=== PATIENT | male | born 1940 | race Caucasian/White ===

== ENCOUNTER 2018-05-28 12:46 | Outpatient (CLI) | payer MEDICARE, BC, SELFPAY ==
[2018-05-28 14:40] LABS: Uric Acid 5.2 mg/dL (3.5-7.2)
== END 2018-05-28 13:06 ==
PROVIDERS: PCP Family Medicine; Visit Provider Family Medicine
DX: M10.9 Gout, unspecified (principal)
CPT/HCPCS: 36415; 84550

== ENCOUNTER 2018-05-31 13:14 | Emergency (ER) | payer MEDICARE, BC, SELFPAY ==
[2018-05-31 13:22] VITALS: BP 154/74; PULSE 73; RESP 20; TEMP 36.7; O2SAT 97
--- NOTE | 2018-05-31 14:34 | DI.RAD_ITS ---
SYMPTOM/DIAGNOSIS: PAIN, SWELLING LEFT WRIST; Three views. No acute fracture or dislocation is seen. 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 Mild degenerative changes are seen in the wrist. There is soft tissue swelling of the wrist seen anteriorly. Vascular calcifications are present in the soft tissues. IMPRESSION: Degenerative changes in the wrist. No acute fracture or dislocation.
--- NOTE | 2018-05-31 14:58 | W.ED.GENAD ---
Discharge Plan Disposition Patient Disposition: HOME Condition: Fair Discharge Details Chief Complaint: Orthopedic Clinical Impression: Gout flare Primary Care Provider: Justin Leal ED Provider: Charlee Palacios [place] Meds and New Rx's Prescriptions: New prednisone 5 mg tablet 10 mg PO DAILY Qty: 30 RF: 0 No Action cholecalciferol (vitamin D3) 1,000 UNIT tablet 1,000 unit PO DAILY RF: 0 clopidogrel 75 MG tablet 75 mg PO DAILY RF: 0 hyoscyamine sulfate 0.375 MG tablet extended release 12 hr 0.375 mg PO DAILY RF: 0 allopurinol 100 MG tablet 100 mg PO DAILY Qty: 90 RF: 3 irbesartan 150 mg tablet 150 mg PO DAILY RF: 0 celecoxib [Celebrex] 200 MG capsule 200 mg PO DAILY RF: 0 ascorbic acid (vitamin C) 1,000 MG tablet 1,000 mg PO DAILY RF: 0 glucosamine liang 2KCl-chondroit [Glucosamine Sulf-Chondroitin] 1 EACH capsule 1 ea PO DAILY RF: 0 atorvastatin [Lipitor] 40 mg tablet 80 mg PO DAILY RF: 0 Discharge Instructions Instructions: Gout (ED) Additional Instructions: Encourage rest, ice, elevation. Continue with brace. Tylenol or ibuprofen for appears calm. Please take steroids as prescribed. Please keep upcoming appointment with orthopedics. If you develop fever/chills, increased redness, warmth, increased swelling or other new/worsening symptoms please seek care urgently once again. Referrals: JESUS MANUEL MOTA [ NON-[facility] STAFF PHYSICIAN] - Justin Leal [Primary Care Provider] - Discharge Data Discharge Date/Time-TO BE ENTERED AT DEPARTURE: 05/31/18 17:15 Medical Decision Making Patient is a 78-year-old [id number] male, accompanied by his , with chief complaint of left wrist pain. Patient reports that he has had insidious onset of left wrist pain times 1 week. Patient reports that he was seen by his primary care physician who was questioning if he may have had a gout flare. Uric acid was obtained and found to be within normal limits. Patient has had gout historically reports that there is typically in his foot. Patient does have chronic altered sensation in the left hand which she associates with cervical spine surgery from 1994. Denies any acute injury. Has flexion contracture to the left middle, ring and small digit which she reports is chronic and unchanged. Also has limited sensation in the fingers. Has good mobility in the index finger and left thumb. States that with movement of the wrist his pain is quite severe. States that since Saturday, when he was seen by his primary care, he has noted increased swelling to the wrist which is now extending into the hand. 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 Laboratory evaluation significant for elevated ESR of 54, CRP of 6.3. Uric acid remains normal at 5.4. No leukocytosis Consulted with Dr. Garcia regarding the findings of the laboratory evaluation as well as physical exam findings of swollen wrist with mild erythema. He advised at this point that this is still likely gout given the patient's history. He advised that the gout may flare without the uric acid going up as in the laboratory evaluation at this time. He advised placing the patient on steroids. He advised prednisone 10 mg every morning times 10-day followed by 5 mg every morning times 10 days. Encouraged rest, ice, elevation and advised that we place him in a brace. Advise follow-up with their office this week Discussed these results as well as the advisement of Dr. Garcia with the patient and his . Advised they already have an appointment scheduled with orthopedics this week. Agrees to treatment as per Dr. Garcia's recommendations. Will be begun on prednisone as above. Encourage rest, ice, elevation. As the brace the patient has a purchase OTC does not appear to be fitting quite well, we will fit with universal wrist splint at this time. We discussed new/worsening symptoms when to seek care urgently once again. Encouraged to keep this upcoming point with orthopedics. All his questions and concerns were addressed and he is in agreement with this plan. [facility] General Mode of arrival: ambulatory. Date/Time Provider Initiated Documentation: 05/31/18 13:58. Limitations to Documentation: no limitations. Information obtained by: patient and family. History of Present Illness 78 year old M presents to the emergency department with the chief complaint of left wrist pain, described as moderate, Quality is described as stabbing (with movement) and aching, and is localized to the left and upper extremity. Patient reports no radiation. Patient started experiencing this week(s) (1) and it has been constant. No relieving factors improve symptom(s), Movement worsens symptoms . Patient notes rash (has noted mild erythema over the dorsal aspect of the wrist and proximal hand) and weakness (chronic weakness and loss or ROM of the left hand); denies cough, fever/chills and headaches. Patient did receive the following treatments prior to arrival, NSAID and splint (purchased OTC spling) Related Data Home Medications Medication Instructions Recorded Confirmed ascorbic acid (vitamin C) 1,000 mg PO DAILY 02/12/13 05/31/18 celecoxib [Celebrex] 200 mg PO DAILY 02/12/13 05/31/18 glucosamine liang 2KCl-chondroit 1 ea PO DAILY 02/12/13 05/31/18 [Glucosamine & Chondroitin Cap] cholecalciferol (vitamin D3) 1,000 unit PO DAILY NS 04/10/13 05/31/18 clopidogrel 75 mg PO DAILY tab-cap 04/19/15 05/31/18 hyoscyamine sulfate 0.375 mg PO DAILY 04/19/15 05/31/18 allopurinol 100 mg PO DAILY #90 tab-cap 03/18/18 05/31/18 atorvastatin 40 mg tablet 80 mg PO DAILY 05/28/18 05/31/18 irbesartan 150 mg tablet 150 mg PO DAILY 05/28/18 05/31/18 prednisone 10 mg PO DAILY #30 tab 05/31/18 Previous Rx's Medication Instructions Recorded allopurinol 100 mg PO DAILY #90 tab-cap 03/18/18 prednisone 10 mg PO DAILY #30 tab 05/31/18 Allergies Allergy/AdvReac Type Severity Reaction Status Date / Time No Known Allergies Allergy Verified 05/31/18 13:24 General Stated Complaint: Orthopedic CLIFFORD: 3 Review of Systems Constitutional Reports as per HPI, Denies chills, Denies fatigue, Denies fever(s) and Denies headache(s) ENT Denies headache(s) Cardiovascular Denies chest pain and Denies dyspnea Respiratory Denies cough and Denies dyspnea Gastrointestinal Denies abdominal pain, Denies change in bowel habits, Denies nausea and Denies vomiting Musculoskeletal Reports as per HPI, Reports joint swelling, Reports limited range of motion and Reports numbness (reports chronic altered sensaton in the middle, ring and pinky finger of the left hand, associate with post surgical complications from 1994) Integumentary/Breasts Reports as per HPI, Reports erythema, Reports skin pain and Reports skin swelling Neurologic Denies headache(s), Reports focal weakness (chronic focal weakness of the 3,4,5 digits left hand. Fingers are chronic in a flexed position,patient unable to extend) and Reports numbness (reports chronic altered sensaton in the middle, ring and pinky finger of the left hand, associate with post surgical complications from 1994) Endocrine Denies fatigue [facility] Social History Smoking/Tobacco Use Status: Former Tobacco Use Exam Const General: cooperative, healthy appearing, comfortable, no acute distress, well developed and well groomed Nutritional Appearance: average body habitus and well nourished Orientation: alert and awake Eyes General: appearance normal, both eyes and all related structures Resp Effort & Inspection: normal respiratory effort, able to speak in complete sentences and no respiratory distress Auscultation: clear to auscultation bilaterally Cardio Rate: regular rate Rhythm: regular rhythm Heart Sounds: S1 normal and S2 normal Skin General skin exam: dry skin, no ecchymosis, erythema (patient has faint, ill defined area of erythema over the dorsal aspect of the left wrist extending over the dorsal aspect of the left hand. Digits are not involved. No open wounds. Area is not warm to palpation. No discharge), no fluctuance, no induration and other Neuro General: alert and awake Cognition: normal cognition Speech: speech normal Gait: normal gait Motor: tone not normal throughout (patient unable to extend 3,4,5 digits of the left hand, reports this is chornic and unchanged. Full ROM of thumb, index slightly flexed but good movement) Sensory Exam: sensory deficits noted (patient has deficits in 3,4,5 left hand but reports chronic, sensation otherwise intact. ) Extrem General: abnormal to inspection (swelling and erythema as above. Chronic changes to 3,4,5 digits as above. Left wrist is swollen with limited ROM. Pain globally about the wrist and dorsal aspect of hand with palpation. No pain with palpation over the palm. 2+ distal pulses), abnormal ROM, normal capillary refill, no joint enlargement noted and normal gait Psych Appearance: grossly normal and well kempt Mental Status: mental status grossly normal Speech and Movement: speech and movement normal Course Vital Signs Temperature 36.7 C 05/31/18 13:22 Pulse 73 05/31/18 13:22 Respiratory Rate 20 05/31/18 13:22 Blood Pressure 154/74 H 10/06/18 13:22 Pulse Oximetry 97 05/31/18 13:22 Temperature 36.7 C 05/31/18 13:22 Temperature Source Temporal Artery Scan 05/31/18 13:22 Pulse 73 05/31/18 13:22 Respiratory Rate 20 05/31/18 13:22 Respiratory Effort Non-Labored 05/31/18 13:26 Blood Pressure 154/74 H 05/31/18 13:22 Pulse Oximetry 97 05/31/18 13:22 Oxygen Delivery Method Room Air 05/31/18 13:22 Oxygen Flow Rate 0 05/31/18 13:22 Pain Level 4 05/31/18 13:26
[2018-05-31 15:43] LABS: HCT 42.5 % (40.0-50.0); HGB 13.7 g/dL (13.5-17.5); Mean Corp. HGB Concentration 32.2 g/dL (32.0-36.0); Mean Corpuscular Hemoglobin 31.4 pg (27.0-33.0); Mean Corpuscular Volume 97.3 fL (80-95); Mean Platelet Volume 9.7 fL (8.0-11.0); Platelet Count 325 x1000/uL (130-400); RBC 4.37 m/cumm (4.50-6.00); RBC Distribution Width 12.9 % (11.8-14.1); White Blood Cell Count 10.04 k/cumm (4.4-10.8)
[2018-05-31 15:55] LABS: Absolute Lymphocyte Count 1.91 k/cumm (1.2-3.4); Absolute Neutrophil Count 6.93 k/cumm (1.2-6.7); Atypical Lymphocytes % 3; Diff Comment Manual Differential; RBC Morphology Normal
[2018-05-31 15:56] LABS: ALT 22 U/L (12-78); AST 16 U/L (15-37); Albumin 3.4 g/dL (3.4-5.0); Alkaline Phosphatase 80 U/L (46-116); BUN 23 mg/dL (7-18); Bilirubin, Total 0.3 mg/dL (0.2-1.0); C-Reactive Protein 6.32 mg/dL (0.0-0.3); CREATININE 0.91 mg/dL (0.70-1.30); Calcium 9.1 mg/dL (8.5-10.1); Chloride 102 mmol/L (98-107); Glucose 99 mg/dL (70-100); Sodium 138 mmol/L (136-145); Total Protein 7.7 g/dL (6.4-8.2); Uric Acid 5.4 mg/dL (3.5-7.2)
[2018-05-31 16:23] LABS: ESR 54 MM/HR (1-20)
--- NOTE | 2018-05-31 16:45 | DI.VRAD_ITS ---
EXAM: XR Left Wrist Complete, 3 or More Views CLINICAL HISTORY: 78 years old, male; Pain and signs and symptoms; Swelling; Wrist; Left; Patient HX: Left wrist pain, swelling TECHNIQUE: Frontal, lateral and oblique views of the left wrist. COMPARISON: No relevant prior studies available. FINDINGS: Bones/joints: Degenerative arthrosis. Chondrocalcinosis. No acute fracture. No dislocation. Soft tissues: Swelling of the wrist soft tissues. No radiopaque foreign body. Vasculature: Vascular calcifications. 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 Dictated and Authenticated by: Shoaib Álvarez MD. Ordering:LENIN GONZALES MD
--- NOTE | 2018-05-31 16:52 | ED.GENADUL_ITS ---
Discharge Plan Disposition Patient Disposition: HOME Condition: Fair Discharge Details Chief Complaint: Orthopedic Clinical Impression: Gout flare Primary Care Provider: Justin Leal ED Provider: Charlee Palacios [place] Meds and New Rx's Prescriptions: New prednisone 5 mg tablet 10 mg PO DAILY Qty: 30 RF: 0 No Action cholecalciferol (vitamin D3) 1,000 UNIT tablet 1,000 unit PO DAILY RF: 0 clopidogrel 75 MG tablet 75 mg PO DAILY RF: 0 hyoscyamine sulfate 0.375 MG tablet extended release 12 hr 0.375 mg PO DAILY RF: 0 allopurinol 100 MG tablet 100 mg PO DAILY Qty: 90 RF: 3 irbesartan 150 mg tablet 150 mg PO DAILY RF: 0 celecoxib [Celebrex] 200 MG capsule 200 mg PO DAILY RF: 0 ascorbic acid (vitamin C) 1,000 MG tablet 1,000 mg PO DAILY RF: 0 glucosamine liang 2KCl-chondroit [Glucosamine Sulf-Chondroitin] 1 EACH capsule 1 ea PO DAILY RF: 0 atorvastatin [Lipitor] 40 mg tablet 80 mg PO DAILY RF: 0 Discharge Instructions Instructions: Gout (ED) Additional Instructions: Encourage rest, ice, elevation. Continue with brace. Tylenol or ibuprofen for appears calm. Please take steroids as prescribed. Please keep upcoming appointment with orthopedics. If you develop fever/chills, increased redness, warmth, increased swelling or other new/worsening symptoms please seek care urgently once again. Referrals: JESUS MANUEL MOTA [ NON-[facility] STAFF PHYSICIAN] - Justin Leal [Primary Care Provider] - Discharge Data Discharge Date/Time-TO BE ENTERED AT DEPARTURE: 05/31/18 17:15 Medical Decision Making Patient is a 78-year-old [id number] male, accompanied by his , with chief complaint of left wrist pain. Patient reports that he has had insidious onset of left wrist pain times 1 week. Patient reports that he was seen by his primary care physician who was questioning if he may have had a gout flare. Uric acid was obtained and found to be within normal limits. Patient has had gout historically reports that there is typically in his foot. Patient does have chronic altered sensation in the left hand which she associates with cervical spine surgery from 1994. Denies any acute injury. Has flexion contracture to the left middle, ring and small digit which she reports is chronic and unchanged. Also has limited sensation in the fingers. Has good mobility in the index finger and left thumb. States that with movement of the wrist his pain is quite severe. States that since Saturday, when he was seen by his primary care, he has noted increased swelling to the wrist which is now extending into the hand. 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 Laboratory evaluation significant for elevated ESR of 54, CRP of 6.3. Uric acid remains normal at 5.4. No leukocytosis Consulted with Dr. Garcia regarding the findings of the laboratory evaluation as well as physical exam findings of swollen wrist with mild erythema. He advised at this point that this is still likely gout given the patient's history. He advised that the gout may flare without the uric acid going up as in the laboratory evaluation at this time. He advised placing the patient on steroids. He advised prednisone 10 mg every morning times 10-day followed by 5 mg every morning times 10 days. Encouraged rest, ice, elevation and advised that we place him in a brace. Advise follow-up with their office this week Discussed these results as well as the advisement of Dr. Garcia with the patient and his . Advised they already have an appointment scheduled with orthopedics this week. Agrees to treatment as per Dr. Garcia's recommendations. Will be begun on prednisone as above. Encourage rest, ice, elevation. As the brace the patient has a purchase OTC does not appear to be fitting quite well, we will fit with universal wrist splint at this time. We discussed new/worsening symptoms when to seek care urgently once again. Encouraged to keep this upcoming point with orthopedics. All his questions and concerns were addressed and he is in agreement with this plan. [facility] General Mode of arrival: ambulatory . Date/Time Provider Initiated Documentation: 05/31/18 13:58 . Limitations to Documentation: no limitations . Information obtained by: patient and family . History of Present Illness 78 year old M presents to the emergency department with the chief complaint of left wrist pain, described as moderate, Quality is described as stabbing ( with movement) and aching, and is localized to the left and upper extremity. Patient reports no radiation. Patient started experiencing this week(s) (1) and it has been constant. No relieving factors improve symptom(s), Movement worsens symptoms . Patient notes rash (has noted mild erythema over the dorsal aspect of the wrist and proximal hand) and weakness (chronic weakness and loss or ROM of the left hand); denies cough, fever/chills and headaches. Patient did receive the following treatments prior to arrival, NSAID and splint (purchased OTC spling) Related Data Home Medications Medication Instructions Recorded Confirmed ascorbic acid (vitamin C) 1,000 mg PO DAILY 02/12/13 05/31/18 celecoxib [Celebrex] 200 mg PO DAILY 02/12/13 05/31/18 glucosamine liang 2KCl-chondroit 1 ea PO DAILY 02/12/13 05/31/18 [Glucosamine & Chondroitin Cap] cholecalciferol (vitamin D3) 1,000 unit PO DAILY NS 04/10/13 05/31/18 clopidogrel 75 mg PO DAILY tab-cap 04/19/15 05/31/18 hyoscyamine sulfate 0.375 mg PO DAILY 04/19/15 05/31/18 allopurinol 100 mg PO DAILY #90 tab-cap 03/18/18 05/31/18 atorvastatin 40 mg tablet 80 mg PO DAILY 05/28/18 05/31/18 irbesartan 150 mg tablet 150 mg PO DAILY 05/28/18 05/31/18 prednisone 10 mg PO DAILY #30 tab 05/31/18 Previous Rx's Medication Instructions Recorded allopurinol 100 mg PO DAILY #90 tab-cap 03/18/18 prednisone 10 mg PO DAILY #30 tab 05/31/18 Allergies Allergy/AdvReac Type Severity Reaction Status Date / Time No Known Allergies Allergy Verified 05/31/18 13:24 General Stated Complaint: Orthopedic CLIFFORD: 3 Review of Systems Constitutional Reports as per HPI, Denies chills, Denies fatigue, Denies fever(s) and Denies headache(s) ENT Denies headache(s) Cardiovascular Denies chest pain and Denies dyspnea Respiratory Denies cough and Denies dyspnea Gastrointestinal Denies abdominal pain, Denies change in bowel habits, Denies nausea and Denies vomiting Musculoskeletal Reports as per HPI, Reports joint swelling, Reports limited range of motion and Reports numbness (reports chronic altered sensaton in the middle, ring and pinky finger of the left hand, associate with post surgical complications from 1994) Integumentary/Breasts Reports as per HPI, Reports erythema, Reports skin pain and Reports skin swelling Neurologic Denies headache(s), Reports focal weakness (chronic focal weakness of the 3,4,5 digits left hand. Fingers are chronic in a flexed position,patient unable to extend) and Reports numbness (reports chronic altered sensaton in the middle, ring and pinky finger of the left hand, associate with post surgical complications from 1994) Endocrine Denies fatigue [facility] Social History Smoking/Tobacco Use Status: Former Tobacco Use Exam Const General: cooperative, healthy appearing, comfortable, no acute distress, well developed and well groomed Nutritional Appearance: average body habitus and well nourished Orientation: alert and awake Eyes General: appearance normal, both eyes and all related structures Resp Effort & Inspection: normal respiratory effort, able to speak in complete sentences and no respiratory distress Auscultation: clear to auscultation bilaterally Cardio Rate: regular rate Rhythm: regular rhythm Heart Sounds: S1 normal and S2 normal Skin General skin exam: dry skin, no ecchymosis, erythema (patient has faint, ill defined area of erythema over the dorsal aspect of the left wrist extending over the dorsal aspect of the left hand. Digits are not involved. No open wounds. Area is not warm to palpation. No discharge), no fluctuance, no induration and other Neuro General: alert and awake Cognition: normal cognition Speech: speech normal Gait: normal gait Motor: tone not normal throughout (patient unable to extend 3,4,5 digits of the left hand, reports this is chornic and unchanged. Full ROM of thumb, index slightly flexed but good movement) Sensory Exam: sensory deficits noted (patient has deficits in 3,4,5 left hand but reports chronic, sensation otherwise intact. ) Extrem General: abnormal to inspection (swelling and erythema as above. Chronic changes to 3,4,5 digits as above. Left wrist is swollen with limited ROM. Pain globally about the wrist and dorsal aspect of hand with palpation. No pain with palpation over the palm. 2+ distal pulses), abnormal ROM, normal capillary refill, no joint enlargement noted and normal gait Psych Appearance: grossly normal and well kempt Mental Status: mental status grossly normal Speech and Movement: speech and movement normal Course Vital Signs Temperature 36.7 C 05/31/18 13:22 Pulse 73 05/31/18 13:22 Respiratory Rate 20 05/31/18 13:22 Blood Pressure 154/74 H 10/06/18 13:22 Pulse Oximetry 97 05/31/18 13:22 Temperature 36.7 C 05/31/18 13:22 Temperature Source Temporal Artery Scan 05/31/18 13:22 Pulse 73 05/31/18 13:22 Respiratory Rate 20 05/31/18 13:22 Respiratory Effort Non-Labored 05/31/18 13:26 Blood Pressure 154/74 H 05/31/18 13:22 Pulse Oximetry 97 05/31/18 13:22 Oxygen Delivery Method Room Air 05/31/18 13:22 Oxygen Flow Rate 0 05/31/18 13:22 Pain Level 4 05/31/18 13:26
[2018-05-31 17:15] VITALS: BP 154/74; PULSE 73; RESP 20; TEMP 36.7; O2SAT 97
[2018-05-31] MEDS: predniSONE 10 MG TAB PO (17:15)
[2018-06-03 11:32] LABS: Lyme Ab w Rflx to Lyme Confirm Negative
[2018-06-03 20:10] LABS: Anaplasma phagocytophilum Negative (Negative); B. miyamotoi PCR Negative (Negative); Babesia divergens/MO-1 Negative (Negative); Babesia duncani Negative (Negative); Babesia microti Negative (Negative); Ehrlichia chaffeensis Negative (Negative); Ehrlichia ewingii/canis Negative (Negative); Ehrlichia muris eauclairensis Negative (Negative)
== END 2018-05-31 17:15 | disposition home or self-care (01) ==
PROVIDERS: Emergency Provider Physician Assistant; PCP Family Medicine
DX: M10.032 Idiopathic gout, left wrist (principal)
CPT/HCPCS: 36415; 80053; 85652; 99283; 73110; 84550; 85025; 86140; 86618; 87798; J7512; L3908

== ENCOUNTER 2019-03-09 07:38 | Outpatient (CLI) | payer OTHER, SELFPAY ==
[2019-03-10 10:25] LABS: PSA, Diagnostic 0.2 ng/ml (0-6.5)
== END 2019-03-09 07:58 ==
PROVIDERS: PCP Family Medicine; Visit Provider Urology
DX: C61 Malignant neoplasm of prostate (principal); R35.1 Nocturia
CPT/HCPCS: 36415; 84153

== ENCOUNTER 2019-04-08 09:40 | Emergency (ER) | payer OTHER, SELFPAY ==
[2019-04-08 09:50] VITALS: BP 140/67; PULSE 75; RESP 15; TEMP 36.7; O2SAT 100
--- NOTE | 2019-04-08 09:52 | DI.RAD_ITS ---
SYMPTOMS/DIAGNOSIS: ANKLE PAIN RIGHT ANKLE: There is a nondisplaced fracture seen extending transversely through the lateral malleolus. There is adjacent soft tissue swelling. The distal tibia and ankle mortise appear intact. IMPRESSION: Nondisplaced fracture of the lateral malleolus.
--- NOTE | 2019-04-08 09:59 | ED.GENADUL_ITS ---
Discharge Plan Disposition Patient Disposition: HOME Condition: Stable Discharge Details Chief Complaint: Orthopedic Clinical Impression: Fracture of right ankle, lateral malleolus Primary Care Provider: Justin Leal ED Provider: Rj Brock [place] Meds and New Rx's Prescriptions: No Action rosuvastatin [Crestor] 10 mg tablet 10 mg PO DAILY RF: 0 valsartan 160 mg tablet 160 mg PO DAILY RF: 0 ropinirole 0.5 mg tablet 1 mg PO QHS RF: 0 coenzyme Q10 200 mg capsule 200 mg PO DAILY RF: 0 aspirin [Aspir-81] 81 mg tablet,delayed release (DR/EC) 81 mg PO DAILY RF: 0 Lotemax 0.5 % drops,suspension 1 drp ophthalmic (eye) DAILY RF: 0 Prevnar 13 (PF) 0.5 mL syringe 0.5 ml IM ONCE Qty: 0.5 RF: 0 clopidogrel 75 MG tablet 75 mg PO DAILY RF: 0 allopurinol 100 mg tablet 200 mg PO DAILY Qty: 180 RF: 3 cholecalciferol (vitamin D3) 1,000 unit tablet 400 unit PO DAILY RF: 0 celecoxib [Celebrex] 200 MG capsule 200 mg PO DAILY RF: 0 ascorbic acid (vitamin C) 1,000 MG tablet 1,000 mg PO DAILY RF: 0 Glucosamine Sulf-Chondroitin 1 EACH capsule 1 ea PO DAILY RF: 0 Discharge Instructions Additional Instructions: call your orthopedist provider to get an appointment for your fracture you can take 1000mg tylenol every 6 hours for pain as needed if you have severe worsening pain return to the emergency department for reevaluation Medical Decision Making 79 yo male comes in with right ankle pain after he tripped from standing and it inverted, no head trauma or falls or other trauma otherwise. HE has lateral right ankle tenderness and swelling with full rom and is able to bear weight though with pain, no pain over metatarsals and cap refill and sensation is intact. Suspect ankle sprain but will xray to eval for fx xray shows lateral malleolus fx, placedin walking boot and given crutches to use prn. He has seen [facility] in the past and prefers to see them for f/u. Differential Diagnosis sprain, strain, fx Imaging Data Radiologic Study: Attestation: I personally reviewed and interpreted this imaging study as follows: Imaging: X-Ray Radiologist's impression: IMPRESSION: Nondisplaced fracture of the lateral malleolus. HPI General Mode of arrival: ambulatory . Date/Time Provider Initiated Documentation: 04/08/19 09:47 . Limitations to Documentation: no limitations . Information obtained by: patient . History of Present Illness 79 year old M presents to the emergency department with the chief complaint of right ankle pain, described as moderate, Quality is described as aching, and is localized to the right and lower extremity. Patient reports no radiation. Patient started experiencing this day(s) (1) and it has been constant. No relieving factors improve symptom(s), No exacerbating factors reported . Patient did receive the following treatments prior to arrival, none Related Data Home Medications Medication Instructions Recorded Confirmed ascorbic acid (vitamin C) 1,000 mg PO DAILY 02/12/13 01/30/19 celecoxib [Celebrex] 200 mg PO DAILY 02/12/13 01/30/19 glucosamine liang 2KCl-chondroit 1 ea PO DAILY 02/12/13 01/30/19 [Glucosamine & Chondroitin Cap] clopidogrel 75 mg PO DAILY tab-cap 04/19/15 01/30/19 allopurinol 100 mg tablet 200 mg PO DAILY #180 tab-cap 09/08/18 01/30/19 aspirin 81 mg tablet,delayed 81 mg PO DAILY 01/30/19 01/30/19 release cholecalciferol (vitamin D3) 1,000 400 unit PO DAILY tab NS 01/30/19 01/30/19 unit tablet coenzyme Q10 200 mg capsule 200 mg PO DAILY 01/30/19 01/30/19 loteprednol etabonate 0.5 % eye 1 drp OPHTHALMIC (EYE) DAILY ml 01/30/19 drops,suspension pneumoc 13-randy conj-dip cr(PF) 0.5 0.5 ml IM ONCE #0.5 ml 01/30/19 01/30/19 mL IM syringe ropinirole 0.5 mg tablet 1 mg PO QHS tab 01/30/19 01/30/19 rosuvastatin 10 mg tablet 10 mg PO DAILY 01/30/19 01/30/19 valsartan 160 mg tablet 160 mg PO DAILY 01/30/19 01/30/19 Previous Rx's Medication Instructions Recorded allopurinol 100 mg tablet 200 mg PO DAILY #180 tab-cap 09/08/18 pneumoc 13-randy conj-dip cr(PF) 0.5 0.5 ml IM ONCE #0.5 ml 01/30/19 mL IM syringe Allergies Allergy/AdvReac Type Severity Reaction Status Date / Time No Known Allergies Allergy Verified 01/30/19 09:12 General Stated Complaint: Orthopedic CLIFFORD: 4 Review of Systems Review of Systems All systems reviewed & are unremarkable except as noted in HPI and below Constitutional Denies chills, Denies fever(s) and Denies weakness Cardiovascular Denies chest pain and Denies dyspnea Respiratory Denies cough and Denies dyspnea Gastrointestinal Denies abdominal pain, Denies nausea and Denies vomiting Musculoskeletal Denies joint swelling Neurologic Denies weakness [facility] Social History (Updated 02/02/19 @ 10:01 by Jaime Jesus) Smoking/Tobacco Use Status: Former Tobacco Use Quit Date: 08/26/05 Second Hand Exposure: No Alcohol Intake: current Alcohol Intake frequency: 3 or more drinks per day Drug use: Never Substance use type: former substance user Caregiver/Support person: No Housing: house Communication Needs: Hard of Hearing Pets and animals: Yes Pets and animals: cat(s), dog(s) and horse(s) Sexually active: No Do you think of yourself as: straight/heterosexual Current gender identity: male What is your relationship status?: How often do you talk on the phone with friends or family?: twice per week How often do you get together with friends or relatives?: once per week How often do you attend holiness or anabaptism services?: decline to answer Do you belong to any clubs or organized social groups?: no Panel score (0-1 are the most socially isolated patients): 2 What type of physical activity do you participate in: walking and bicycling Duration: 15-30 minutes/day Frequency: 3-4 times per week Rufina/Moravian: none Special rufina needs: No Seatbelt use: always Drive intox or ride w/intox 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 Do you feel safe in your relationship?: Yes Exam Const General: no acute distress Orientation: alert HENMT Head: normal to inspection Ears: external ears normal General nose exam: external nose normal Mouth: moist mucous membranes Eyes General: appearance normal, both eyes and all related structures Neck Neck: normal visual inspection Resp Effort & Inspection: normal respiratory effort and able to speak in complete sentences Cardio Rate: regular rate Skin General skin exam: no rashes or lesions noted Neuro General: alert and oriented x3 Extrem General: normal to inspection Psych Mental Status: mental status grossly normal Course Vital Signs Temperature 36.7 C 04/08/19 09:50 Pulse 75 04/08/19 09:50 Respiratory Rate 15 04/08/19 09:50 Blood Pressure 140/67 04/08/19 09:50 Pulse Oximetry 100 04/08/19 09:50 Temperature 36.7 C 04/08/19 09:50 Temperature Source Skin 04/08/19 09:50 Pulse 75 04/08/19 09:50 Respiratory Rate 15 04/08/19 09:50 Respiratory Effort Non-Labored 04/08/19 09:52 Blood Pressure 140/67 04/08/19 09:50 Pulse Oximetry 100 04/08/19 09:50 Oxygen Delivery Method Room Air 04/08/19 09:50 Oxygen Flow Rate 0 04/08/19 09:50
--- NOTE | 2019-04-08 11:16 | NUR.NOTE ---
patient fitted with large walking boot and medium size crutch, patient returned demonstration Nursing Note:
== END 2019-04-08 11:15 | disposition home or self-care (01) ==
PROVIDERS: Emergency Provider Emergency Medicine; PCP Family Medicine
DX: S82.61XA Displaced fracture of lateral malleolus of right fibula, initial encounter for closed fracture (principal); X50.9XXA Other and unspecified overexertion or strenuous movements or postures, initial encounter
CPT/HCPCS: 27786; 73610; E0114; L4361

== ENCOUNTER 2020-04-05 04:33 | Outpatient (CLI) | payer OTHER, SELFPAY ==
[2020-04-05 08:22] LABS: Hemoglobin A1C 5.7 % (3.8-5.6)
[2020-04-05 09:01] LABS: ALT 37 U/L (16-63); AST 36 U/L (15-37); Albumin 3.9 g/dL (3.4-5.0); Alkaline Phosphatase 72 U/L (46-116); Anion Gap 9.4 mmol/L (3-11); BUN 20 mg/dL (7-18); Bilirubin, Total 0.4 mg/dL (0.2-1.0); CO2 25.6 mmol/L (21.0-32.0); CREATININE 0.97 mg/dL (0.70-1.30); Calcium 9.1 mg/dL (8.5-10.1); Calculated LDL 48 mg/dL (<100); Chloride 103 mmol/L (98-107); Cholesterol 135 mg/dL (<200); Glucose 77 mg/dL (74-106); HDL Cholesterol 64 mg/dL (40-60); Potassium 4.4 mmol/L (3.5-5.1); Sodium 138 mmol/L (136-145); Total Protein 6.8 g/dL (6.4-8.2); Triglyceride 119 mg/dL (<150)
== END 2020-04-05 04:53 ==
PROVIDERS: PCP Family Medicine; Visit Provider Internal Medicine
DX: I25.10 Atherosclerotic heart disease of native coronary artery without angina pectoris (principal); I10 Essential (primary) hypertension; E78.5 Hyperlipidemia, unspecified; R73.03 Prediabetes
CPT/HCPCS: 36415; 80053; 80061; 83036

== ENCOUNTER → 2020-04-29 10:17 | Outpatient (BNVA) | payer OTHER, SELFPAY | PROVIDERS: PCP Family Medicine; Referring Provider Family Medicine; Visit Provider Physical Therapy Assistant | DX: Z86.010 Personal history of colon polyps (principal); Z12.11 Encounter for screening for malignant neoplasm of colon ==

== ENCOUNTER 2020-05-06 11:39 | Day surgery (SDC) | payer OTHER, SELFPAY ==
[2020-05-06 12:01] VITALS: BP 149/84; PULSE 77; RESP 16; TEMP 36.6; O2SAT 99
[2020-05-06] MEDS: Lactated Ringers 1,000 ML 80 ML IV (12:26)
--- NOTE | 2020-05-06 12:59 | W.PM.DSUDISC ---
Discharge Plan Disposition Patient Disposition: HOME Condition: Good Discharge Details Reason For Visit: Colonoscopy Attending Provider: Peggy Santos Primary Care Provider: Justin Leal Home Meds and New Rx's Prescriptions: Continued rosuvastatin [Crestor] 10 mg tablet 10 mg PO DAILY RF: 0 valsartan 160 mg tablet 160 mg PO DAILY RF: 0 ropinirole 0.5 mg tablet 1 mg PO QHS RF: 0 coenzyme Q10 200 mg capsule 200 mg PO DAILY RF: 0 Prevnar 13 (PF) 0.5 mL syringe 0.5 ml IM ONCE Qty: 0.5 RF: 0 clopidogrel 75 MG tablet 75 mg PO DAILY RF: 0 cholecalciferol (vitamin D3) 1,000 unit tablet 400 unit PO DAILY RF: 0 allopurinol 100 mg tablet 200 mg PO DAILY Qty: 180 RF: 3 celecoxib [Celebrex] 200 MG capsule 200 mg PO DAILY RF: 0 ascorbic acid (vitamin C) 1,000 MG tablet 1,000 mg PO DAILY RF: 0 Glucosamine Sulf-Chondroitin 1 EACH capsule 1 ea PO DAILY RF: 0 lidocaine 4 % Adhesive Patch,Medicated 1 patch TOPICAL DAILY RF: 0 Discontinued polyethylene glycol 3350 17 gram/dose powder 238 g PO ONCE Qty: 238 RF: 0 bisacodyl [Dulcolax (bisacodyl)] 5 mg tablet,delayed release (DR/EC) 5 mg PO ONCE Qty: 4 RF: 0 Discharge Instructions Additional Instructions: Findings: Your colonoscopy showed diverticulosis. No polyps were found. Follow up: You can consider a colonoscopy in 7 years depending on overall health. Please call if you develop: fevers >101.5 Nausea or Vomiting Abdominal pain that is not transient DAY SURGERY UNIT POST COLONOSCOPY INSTRUCTIONS 1. Because there will be medication in your system for the next 24 hours, you may feel a little sleepy. Your coordination will be affected. Therefore: a. Do not drive or operate dangerous equipment for 24 hours. b. Do not drink alcohol beverages for 24 hours (not even beer). c. Plan to go home and rest for the day. 2. Generally there are no restrictions on your activity after a day or so has gone by, but you may feel a bit fatigued for a few days. 3 After you arrive home you may have a light meal and return to a normal diet as you can tolerate it without feeling sick to your stomach. 4. After surgery, you may feel pain or discomfort. This should be only transient, but if it persists please contact your doctor. 5. If there are any questions regarding the findings of your procedure, please feel free to contact your doctor. 6. If you are unable to contact your doctor with a problem, contact the hospital at [phone]. 7. Continue all your regular medications unless directed otherwise. I understand the above instructions and have no questions. Signature of Patient or Responsible Adult Escort Date/Time Name of Responsible Adult Escort Signature of Nurse Date/Time Activity:: Activity as Tolerated Diet:: As Tolerated Discharge Orders Discharge Orders: Discharge Order (Routine); Ordered 05/06/20 Ordered By: Peggy Santos DS: Diagnosis Discharge Diagnosis (1) Diverticulosis: Status: Acute
--- NOTE | 2020-05-06 13:00 | W.COLOREPORT ---
Date of service: 05/06/20 Time of Service: 13:35 Colonoscopy Report Date of procedure: 05/06/20 Pre-op diagnosis general: History of colon polyp Procedure: Colonoscopy Surgeon: Peggy Santos Anesthesia proc note operative: MAC Indications: This 80 year old man had a tubular adenoma removed in 2014. He also had a large tubular adenoma removed in 2009 and the region tatooed. He presents for routine follow up. Procedure Description: The patient was placed in the left Abbott position. Propofol was titrated to sedation. Digital rectal examination revealed no abnormalities. The scope was advanced to the cecum without difficulty. The ileocecal valve and appendiceal orifice were clearly identified. The prep was good. The scope was slowly withdrawn over the course of greater than 6 minutes with pandiverticulosis noted. No other abnormalities seen in the ascending, transverse, descending, sigmoid colon or rectum including on retroflexed view. The area of tattoo was seen in the descending colon with no evidence of polyp recurrence. The patient tolerated the procedure well and was stable to recovery. He can consider a follow up colonoscopy in 7 years depending on overall health.
[2020-05-06 14:05] VITALS: BP 120/73; PULSE 60; RESP 18; TEMP 36.5; O2SAT 96
== END 2020-05-06 14:15 | disposition home or self-care (01) ==
PROVIDERS: PCP Family Medicine; Visit Provider Surgery
PROC: 0DJD8ZZ Inspection of Lower Intestinal Tract, Via Natural or Artificial Opening Endoscopic (ICD-10-PCS; CPT 45378; principal; 2020-05-06 13:15)
DX: Z12.11 Encounter for screening for malignant neoplasm of colon (principal); Z86.010 Personal history of colon polyps; I73.9 Peripheral vascular disease, unspecified; I25.10 Atherosclerotic heart disease of native coronary artery without angina pectoris
CPT/HCPCS: G0105

== ENCOUNTER 2023-03-27 03:45 | Outpatient (CLI) | payer MEDICARE, SELFPAY ==
[2023-03-27 11:33] LABS: Abs Immature Grans 0.06 10^3/uL (0.0-0.06); Absolute Basophil Count 0.03 10^3/uL (0.0-0.2); Absolute Eosinophil Count 0.06 10^3/uL (0.0-0.7); Absolute Monocyte Count 0.64 10^3/uL (0.1-0.8); Absolute Neutrophil Count 6.64 10^3/uL (1.2-6.7); Basophils % 0.3; Eosinophils % 0.6; HCT 41.7 % (40.0-50.0); HGB 13.7 g/dL (13.5-17.5); Immature Grans % 0.6; MCH 31.3 pg (27.0-33.0); MCHC 32.9 % (32.0-36.0); MCV 95 fL (80-95); MPV 9.9 fL (8.0-11.0); Monocytes % 6.7; Neutrophils % 69.8; Platelet Count 298 10^3/uL (130-400); RBC 4.38 10^6/uL (4.36-5.78); RDW 12.6 % (11.8-14.1); RDW-SD 44.4 fL; WBC 9.53 10^3/uL (4.4-10.8)
[2023-03-27 11:43] LABS: ESR 9 mm/hr (0-20)
[2023-03-27 11:53] LABS: ALT 41 U/L (16-63); AST 24 U/L (15-37); Albumin 3.9 g/dL (3.4-5.0); Alkaline Phosphatase 60 U/L (46-116); Anion Gap 7.9 mmol/L (3-11); BUN 31 mg/dL (7-18); Bilirubin, Total 0.5 mg/dL (0.2-1.0); C-Reactive Protein < 0.05 mg/dL (0.0-0.3); CO2 28.1 mmol/L (21.0-32.0); CREATININE 1.1 mg/dL (0.70-1.30); Calcium 9.4 mg/dL (8.5-10.1); Chloride 99 mmol/L (98-107); Estimated GFR 67.44 (mL/min/1.73m2); Glucose 100 mg/dL (74-106); Potassium 4.5 mmol/L (3.5-5.1); Sodium 135 mmol/L (136-145); Total Protein 7.6 g/dL (6.4-8.2)
== END 2023-03-27 03:46 | disposition home or self-care (01) ==
PROVIDERS: PCP Family Medicine; Visit Provider Family Medicine
DX: R53.1 Weakness (principal); D64.9 Anemia, unspecified; R10.9 Unspecified abdominal pain; R41.89 Other symptoms and signs involving cognitive functions and awareness
CPT/HCPCS: 36415; 80053; 85652; 85025; 86140

== ENCOUNTER 2023-03-28 03:45 | Outpatient (CLI) | payer MEDICARE, SELFPAY ==
--- NOTE | 2023-03-28 07:45 | DI.RAD_ITS ---
Exam(s) XR CERVICAL SPINE COMP 4-5V EXAM: XR CERVICAL SPINE COMP 4-5V CLINICAL HISTORY: progressive arm/leg weakness; hx of cspine surg., R53.1. TECHNIQUE: 2D digital imaging was performed. COMPARISON: None FINDINGS: There is posterior fusion hardware from C2 through T2. Hardware appears intact. No surrounding lucenc ies. Fusion along the anterior vertebral bodies. Disc spacers seen at C5-6 and C6-7. Laminectomy defe cts. No evidence of acute fracture. Alignment appears satisfactory. IMPRESSION: Extensive postsurgical changes. DATA REPOSITORY: RADIATION DOSE DELIVERED:
== END 2023-03-28 04:05 ==
LOC: DI 03:45
PROVIDERS: PCP Family Medicine; Visit Provider Family Medicine
DX: R53.1 Weakness (principal); Z98.890 Other specified postprocedural states; M96.4 Postsurgical lordosis
CPT/HCPCS: 72050

== ENCOUNTER 2023-06-02 08:47 | Emergency (ER) | payer MEDICARE, SELFPAY ==
[2023-06-02] VITALS (22 sets, daily range): BP systolic 79–113; BP diastolic 40–68; PULSE 65–80; RESP 12–20; TEMP 36.7–37; O2SAT 75–100
--- NOTE | 2023-06-02 09:10 | W.ED.GENAD ---
Discharge Plan Disposition Patient Disposition: Home Condition: Stable Discharge Details Clinical Impression: Urinary retention Primary Care Provider: Justin Leal ED Provider: Rj Brock [place] Meds and New Rx's Prescriptions: New levofloxacin 750 mg tablet 750 mg PO DAILY Qty: 6 0RF Continued valsartan-hydrochlorothiazide 320-12.5 mg tablet 1 tab PO DAILY Qty: 90 3RF allopurinol 100 mg tablet 200 mg PO DAILY Qty: 180 3RF prednisone 20 mg tablet 40 mg PO DAILY Qty: 10 0RF oxycodone 5 mg tablet 5 mg PO DAILY PRN rosuvastatin [Crestor] 10 mg tablet 10 mg PO DAILY ropinirole 0.5 mg tablet 1 mg PO QHS clopidogrel 75 MG tablet 75 mg PO DAILY cholecalciferol (vitamin D3) 1,000 unit tablet 400 unit PO DAILY celecoxib [Celebrex] 200 MG capsule 200 mg PO DAILY ascorbic acid (vitamin C) 1,000 MG tablet 1,000 mg PO DAILY lidocaine 4 % Adhesive Patch,Medicated 1 patch TOPICAL DAILY baclofen 10 mg tablet 10 mg PO TID Patient Comments: TAKE 1 TABLET BY MOUTH THREE TIMES DAILY Discontinued sulfamethoxazole-trimethoprim 800-160 mg tablet 1 tab PO BID Patient Comments: TAKE 1 TABLET BY MOUTH TWICE DAILY FOR 5 DAYS Discharge Instructions Instructions: Urinary Retention in Men (ED), Rendon Catheter Placement and Care (ED) Additional Instructions: you should be contacted with an appointment for urology if you feel more ill, have severe abdominal pain or fevers return to the emergency department Medical Decision Making 83 yo male who underwent cervical fusion in March and had been at rehab until he was d/c'd last week. Since yesterday he has not been able to urinate and has had a pressure sensation in the lower abdomen so came here. He otherwise feels well, denies neck pain, back pain, fevers, chills. He is caox4 on arrival in no distress. Abdomen is nontender, does feel distended in the suprapubic region and on bladder scan has over 900cc of urine. No saddle anesthesia, normal sensation and pulses in the leg. Will have nursing place rendon and obtain UA, no findings on exam or history to suggest cauda equina or spinal epidural abscess. UA indeterminate for uti, culture pending, will start on levofloxacin. HE is stable, rendon placed draining clear yellow urine and has had over 900cc urine out. He is stable for d/c, placed on urology f/u for 1-2 weeks, return precautions given Differential Diagnosis Differential Diagnosis: uti, urinary retention Lab Data Lab results reviewed: Yes I reviewed the patient's lab results. HPI General Mode of arrival: wheelchair. Date/Time Provider Initiated Documentation: 06/02/23 08:47. Limitations to Documentation: no limitations. Information obtained by: patient and family. History of Present Illness 83 year old M presents to the emergency department with the chief complaint of difficulty urinating, described as moderate, Patient started experiencing this day(s) (1) and it has been constant. No relieving factors improve symptom(s), No exacerbating factors reported . Patient notes denies fever/chills and nausea/vomiting. Patient did receive the following treatments prior to arrival, none Related Data Home Medications Medication Instructions Recorded Confirmed ascorbic acid (vitamin C) 1,000 mg 1,000 mg PO DAILY 02/12/13 06/02/23 tablet celecoxib 200 mg capsule (Celebrex) 200 mg PO DAILY 02/12/13 06/02/23 clopidogrel 75 mg tablet 75 mg PO DAILY 04/19/15 06/02/23 cholecalciferol (vitamin D3) 25 400 unit PO DAILY 01/30/19 06/02/23 mcg (1,000 unit) tablet ropinirole 0.5 mg tablet 1 mg PO QHS 01/30/19 06/02/23 rosuvastatin 10 mg tablet (Crestor) 10 mg PO DAILY 01/30/19 06/02/23 lidocaine 4 % topical patch 1 patch topical DAILY 05/04/20 06/02/23 valsartan 320 1 tab PO DAILY #90 tabs 09/06/20 06/02/23 mg-hydrochlorothiazide 12.5 mg tablet allopurinol 100 mg tablet 200 mg PO DAILY #180 tab-caps 09/12/22 06/02/23 oxycodone 5 mg tablet 5 mg PO DAILY PRN 03/20/23 06/02/23 prednisone 20 mg tablet 40 mg PO DAILY #10 tabs 03/20/23 06/02/23 baclofen 10 mg tablet 10 mg PO TID 06/02/23 06/02/23 levofloxacin 750 mg tablet 750 mg PO DAILY #6 tabs 10/08/23 Previous Rx's Medication Instructions Recorded valsartan 320 1 tab PO DAILY #90 tabs 09/06/20 mg-hydrochlorothiazide 12.5 mg tablet allopurinol 100 mg tablet 200 mg PO DAILY #180 tab-caps 09/12/22 prednisone 20 mg tablet 40 mg PO DAILY #10 tabs 03/20/23 levofloxacin 750 mg tablet 750 mg PO DAILY #6 tabs 06/02/23 Allergies Allergy/AdvReac Type Severity Reaction Status Date / Time No Known Allergies Allergy Verified 03/20/23 13:10 General Stated Complaint: Urinary CLIFFORD: 3 Review of Systems All systems reviewed & are unremarkable except as noted in HPI and below Constitutional Constitutional: Denies chills, Denies fever(s) and Denies weakness Cardiovascular Cardiovascular: Denies chest pain and Denies dyspnea Respiratory Respiratory: Denies cough and Denies dyspnea Gastrointestinal Gastrointestinal: Denies nausea and Denies vomiting Musculoskeletal Musculoskeletal: Denies joint swelling Integumentary/Breasts Skin/Breast: Denies rash Neurologic Neurologic: Denies weakness PFSH All Active Problems (Updated 06/02/23 @ 10:53 by Rj Brock MD) Urinary retention (Acute) Weakness (Chronic) Diverticulosis (Chronic) Wrist pain, left (Acute) ? carpal tunnel ? 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 doesn't remember which leg) H/O spinal fusion Hx of spinal surgery Family History Mother , 91 Stroke Father , 71 Heart disease Stroke Brother Heart disease Maternal Grandfather , 71 No problems noted. Paternal Grandfather , 36 No problems noted. Maternal Grandmother , 91 No problems noted. Paternal Grandmother , 68 Diabetes Heart disease Son No problems noted. Son , 39 Heart disease Daughter No problems noted. Social History (Updated 09/14/22 @ 16:11 by Nessa Alanis) Smoking/Tobacco Use Status: Former Tobacco Use tobacco type: cigarettes Quit Date: 08/26/05 Tobacco: How many years used: 40 Quit status: quit date established Second Hand Exposure: Yes Smoking risk assessment performed?: Yes Alcohol Intake: current Alcohol Intake frequency: a few times a week Alcohol type: beer, wine and hard liquor Caregiver/Support person: No Household members: spouse Housing: house Communication Needs: Hard of Hearing Do you need help understanding health information?: Rarely Pets and animals: Yes Pets and animals: cat(s), dog(s) and horse(s) Sexually active: No Do you think of yourself as: straight/heterosexual Current gender identity: male What is your relationship status?: How often do you talk on the phone with friends or family?: three or more times per week How often do you get together with friends or relatives?: decline to answer How often do you attend jewish or rastafarian services?: decline to answer Do you belong to any clubs or organized social groups?: no Panel score (0-1 are the most socially isolated patients): 2 What type of physical activity do you participate in: bicycling Duration: < 15 minutes/day Frequency: 5-6 times per week Rufina/Spiritism: none Special rufina needs: No Seatbelt use: always Drive intox or ride w/intox drive away driver: No Do you feel safe at home: Yes Do you feel safe in your relationship?: Yes Exam Const General: no acute distress Orientation: alert HENMT Head: normal to inspection Ears: external ears normal General nose exam: external nose normal Mouth: moist mucous membranes Eyes General: appearance normal, both eyes and all related structures Neck Neck: normal visual inspection Resp Effort & Inspection: normal respiratory effort and able to speak in complete sentences Cardio Rate: regular rate GI Palpation: soft and nontender Skin General skin exam: no rashes or lesions noted Neuro General: patient alert and patient oriented x3 Extrem General: normal to inspection Psych Mental Status: mental status grossly normal Course Vital Signs Vital signs: Vital Signs Temperature 36.7 C 06/02/23 08:57 Pulse 75 06/02/23 08:57 Respiratory Rate 20 06/02/23 08:57 Blood Pressure 106/43 L 06/02/23 08:57 Pulse Oximetry 100 06/02/23 08:57 Temperature 36.7 C 06/02/23 08:57 Temperature Source Temporal Artery Scan 06/02/23 08:57 Pulse 75 06/02/23 08:57 Respiratory Rate 20 06/02/23 08:57 Respiratory Effort Normal, Non-Labored 06/02/23 09:07 Blood Pressure 106/43 L 06/02/23 08:57 Blood Pressure Position Supine 06/02/23 08:57 Pulse Oximetry 100 06/02/23 08:57 Oxygen Delivery Method Room Air 06/02/23 08:57 Oxygen Flow Rate 0 06/02/23 08:57
[2023-06-02] MEDS: Lidocaine 2% Jelly 6 ML SYR (09:30)
[2023-06-02 10:33] LABS: Bilirubin Negative (Negative); Blood Trace-lysed (Negative); Clarity Clear (Clear); Glucose Negative (Negative); Ketones Negative (Negative); Leukocyte Esterase Trace (Negative); Nitrite Negative (Negative); Urobilinogen 0.2 mg/dL (Up to 0.2)
[2023-06-02 10:40] LABS: Bacteria Rare HPF (Negative); C & S Indicated? Yes; Casts 3-5 Hyaline LPF (Negative); Crystals Negative HPF (Negative); Epithelial Cells Rare HPF (Negative); Mucus Negative (Negative)
[2023-06-02] MEDS: levoFLOXacin 500 MG, levoFLOXacin 250 MG 750 MG PO (10:51)
--- NOTE | 2023-06-02 10:53 | NUR.NOTE ---
Referral faxed to [facility] due to urinary retentaion with Lopez. Dr Brock would like him to be seen within 1 week
== END 2023-06-02 11:20 | disposition home or self-care (01) ==
PROVIDERS: Emergency Provider Emergency Medicine; PCP Family Medicine
DX: R33.9 Retention of urine, unspecified; Z98.1 Arthrodesis status; I10 Essential (primary) hypertension
CPT/HCPCS: 36415; 51702; 99283; 81003; 81015; 87086; 99284

== ENCOUNTER → 2023-06-19 08:22 | Outpatient (BNVA) | payer MEDICARE, SELFPAY | PROVIDERS: PCP Family Medicine; Referring Provider Family Medicine; Visit Provider Nurse Practitioner Gerontology | DX: R33.8 Other retention of urine (principal); Z85.46 Personal history of malignant neoplasm of prostate | CPT/HCPCS: 99215 ==

== ENCOUNTER → 2023-06-27 07:48 | Outpatient (BNVA) | payer MEDICARE, SELFPAY | PROVIDERS: PCP Family Medicine; Referring Provider Family Medicine; Visit Provider Nurse Practitioner Gerontology | DX: R33.8 Other retention of urine (principal) | CPT/HCPCS: 51798; 99212 ==

== ENCOUNTER 2023-07-04 11:17 | Inpatient (IN) | payer MEDICARE, SELFPAY ==
[2023-07-04] VITALS (132 sets, daily range): BP systolic 72–174; BP diastolic 28–146; PULSE 59–120; RESP 13–32; TEMP 37.2–38.4; O2SAT 82–98
--- NOTE | 2023-07-04 11:00 | RT.EKG_ITS ---
APPROVED REPORT Exam: Resting ECG Reason for Exam: dizzy Patient Location: E HR:63 bpm ECG Measurements Heart Rate 63 AXIS AL 272 P 89 QRSd 156 QRS -87 QT 435 T 80 QTc 445 Conclusion Atrial-sensed ventricular-paced rhythm...ventricular pacing tracks p-waves 100% paced no previous available for comparison. 1st degree avb. No STEMI
[2023-07-04 11:34] LABS: Abs Immature Grans 0.03 10^3/uL (0.0-0.06); Absolute Basophil Count 0.02 10^3/uL (0.0-0.2); Absolute Eosinophil Count 0.13 10^3/uL (0.0-0.7); Absolute Lymphocyte Count 1.59 10^3/uL (1.2-3.4); Absolute Neutrophil Count 3.72 10^3/uL (1.2-6.7); Basophils % 0.3; Eosinophils % 2.1; HCT 25.7 % (40.0-50.0); HGB 8.4 g/dL (13.5-17.5); Immature Grans % 0.5; Lymphocytes % 26.1; MCH 30.1 pg (27.0-33.0); MCHC 32.7 % (32.0-36.0); MCV 92 fL (80-95); MPV 9.3 fL (8.0-11.0); Monocytes % 9.9; Neutrophils % 61.1; Platelet Count 210 10^3/uL (130-400); RBC 2.79 10^6/uL (4.36-5.78); RDW 14.4 % (11.8-14.1); RDW-SD 48.5 fL; WBC 6.09 10^3/uL (4.4-10.8)
[2023-07-04 11:39] LABS: Lactate 0.8 mmol/L (0.6-1.4)
[2023-07-04] MEDS: Normal Saline 500 ML IV (11:47)
[2023-07-04 11:48] LABS: INR 1.2 (0.9-1.1); PTT Activated 32.1 sec (23.6-32.8); Prothrombin Time 12.3 sec (9.1-11.1)
--- OUTSIDE RECORDS SUMMARY | 2023-07-04 11:56 | XMS_ITS | Summary of Care ---
Author Name Unknown Organization [facility] Address [address] [place] [address]- Encounter 05/03/23 - 05/31/[address] [address]- [phone] Discharge Disposition: Home with Home Health Care Attending Physician: Perfecto GUERRERO, Rogelio Saleem Admitting Physician: Perfecto GUERRERO, Rogelio Saleem Allergies, Adverse Reactions, Alerts No Known Medication Allergies Medications acetaminophen 325 mg oral tablet 975 mg = 3 tab, Oral, q8hr, 0 Refill(s) Start Date: 05/03/23 Status: Ordered allopurinol 100 mg oral tablet 100 mg = 1 tab, Oral, Daily, 0 Refill(s) Start Date: 05/03/23 Status: Ordered ascorbic acid 500 mg oral tablet 500 mg = 1 tab, Oral, Daily, 0 Refill(s) Start Date: 05/03/23 Status: Ordered baclofen 10 mg oral tablet 10 mg = 1 tab, Tab, Oral, TID, 90 tab, 0 Refill(s), Route to Pharmacy Electronically, [facility] #[id number], 168, 05/17/23 5:44:00 EDT, Height/Length Dosing, cm, 69.8, 05/17/23 5:44:00 EDT, Weight Dosing, kg Start Date: 05/30/23 Status: Ordered Bactrim DS 800 mg-160 mg oral tablet 1 tab, Tab, Oral, BID, 10 tab, 0 Refill(s), Dispense: 5 day, Indication: UTI - Complicated Cystitis, Stop date 06/04/23 18:15:00 EDT, Route to Pharmacy Electronically, [facility] #[id number], 168, 05/17/23 5:44:00 EDT, Height/Length Dosing, cm, 6... Start Date: 05/30/23 Stop Date: 06/04/23 Status: Ordered cholecalciferol 50 mcg (2000 intl units) oral tablet 50 mcg = 1 tab, Tab, Oral, Daily, 0 Refill(s) Start Date: 05/03/23 Status: Ordered clopidogrel 75 mg oral tablet 75 mg, = 1 tab, Tab, Oral, Daily, 0 Refill(s) Start Date: 05/03/23 Status: Ordered diazePAM 2 mg oral tablet 2 mg = 1 tab, Tab, Oral, q6hr PRN, 10 tab, 0 Refill(s), Anxiety, Route to Pharmacy Electronically, [facility] #[id number], 168, 05/17/23 5:44:00 EDT, Height/Length Dosing, cm, 69.8, 05/17/23 5:44:00 EDT, Weight Dosing, kg Start Date: 05/30/23 Status: Ordered Lumigan 0.01% ophthalmic solution 1 drop, Soln-Opth, Eye-Both, QHS, 0 Refill(s) Start Date: 05/03/23 Status: Ordered oxyCODONE 5 mg oral tablet 5 mg = 1 tab, Tab, Oral, q6hr PRN, 15 tab, 0 Refill(s), PLEASE OBTAIN ANY FURTHER OPIATE PRESCRIPTIONS FROM YOUR PCP OR SURGEON POST-DISCHARGE, PAIN (Scale 7-10), Route to Pharmacy Electronically, [facility] #[id number], 168, 05/17/23 5:44:00 EDT... 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 Chronic neck and low back pain(Confirmed) Active Hyperlipidemia(Confirmed) Active Hypertension(Confirmed) Active Peripheral vascular disease(Confirmed) Active 1Problem added by Discern Expert Rule: EBN_VTERISKPROB_3 Results Most recent to oldest [Reference Range]: 1 2 3 Creatinine Level 1.06 mg/dL (05/30/23 5:47 AM) 1.13 mg/dL (05/28/23 7:15 AM) 1.23 mg/dL *HI* (05/27/23 6:00 AM) eGFR CKD-EPI - CRD [>=60] >60 (05/30/23 5:47 AM) >60 (05/28/23 7:15 AM) 59 *LOW* (05/27/23 6:00 AM) WBC Instrument - CRD [4.23-9.07 x10^3/mcL] 5.05 x10^3/mcL (05/30/23 5:47 AM) 5.85 x10^3/mcL (05/27/23 6:00 AM) 5.15 x10^3/mcL (05/23/23 6:40 AM) Micro Indicated? - CRD Indicated (05/24/23 11:00 PM) RDW-SD - CRD 48.3 (05/30/23 5:47 AM) 49.5 (05/27/23 6:00 AM) 49.6 (05/23/23 6:40 AM) Estimated Creatinine Clearance 49.57 mL/min 1 (05/31/23 6:12 AM) 49.57 mL/min 2 (05/30/23 5:47 AM) 46.50 mL/min 3 (05/28/23 7:15 AM) WBC - CRD [4.23-9.07 x10^3/mcL] 5.05 x10^3/mcL (05/30/23 5:47 AM) 5.85 x10^3/mcL (05/27/23 6:00 AM) 5.15 x10^3/mcL (05/23/23 6:40 AM) RBC - CRD [4.00-5.74 x10^6/mcL] 3.31 x10^6/mcL *LOW* (05/30/23 5:47 AM) 3.10 x10^6/mcL *LOW* (05/27/23 6:00 AM) 3.29 x10^6/mcL *LOW* (05/23/23 6:40 AM) MCV - CRD [82.1-98.2 fL] 94.9 fL (05/30/23 5:47 AM) 96.8 fL (05/27/23 6:00 AM) 96.4 fL (05/23/23 6:40 AM) MCH - CRD [25.7-32.2 pg] 30.8 pg (05/30/23 5:47 AM) 30.6 pg (05/27/23 6:00 AM) 31.0 pg (05/23/23 6:40 AM) MCHC - CRD [32.3-36.5 G/DL] 32.5 G/DL (05/30/23:47 AM) 31.7 G/DL *LOW* (05/27/23 6:00 AM) 32.2 G/DL *LOW* (05/23/23 6:40 AM) RDW - CRD [11.6-14.4 %] 13.9 % (05/30/23 5:47 AM) 14.1 % (05/27/23 6:00 AM) 14.1 % (05/23/23 6:40 AM) Platelets - CRD [154-333 x10^3/mcL] 356 x10^3/mcL *HI* (05/30/23 5:47 AM) 293 x10^3/mcL (05/27/23 6:00 AM) 338 x10^3/mcL *HI* (05/23/23 6:40 AM) NRBC - CRD 0.0 (05/30/23 5:47 AM) 0.0 (05/27/23 6:00 AM) 0.0 (05/23/23 6:40 AM) Sodium - CRD [136-145 mmol/L] 141 mmol/L (05/30/23 5:47 AM) 137 mmol/L (05/28/23 7:15 AM) 137 mmol/L (05/27/23 6:00 AM) Potassium - CRD [3.5-5.1 mmol/L] 4.3 mmol/L (05/30/23 5:47 AM) 3.8 mmol/L (05/28/23 7:15 AM) 4.0 mmol/L (05/27/23 6:00 AM) Chloride - CRD [100-109 mmol/L] 109 mmol/L (05/30/23:47 AM) 105 mmol/L (05/28/23 7:15 AM) 106 mmol/L (05/27/23 6:00 AM) Carbon Dioxide - CRD [21-32 mmol/L] 25 mmol/L (05/30/23:47 AM) 27 mmol/L (05/28/23 7:15 AM) 23 mmol/L (05/27/23 6:00 AM) BUN - CRD [7-22 mg/dL] 20 mg/dL (05/30/23:47 AM) 23 mg/dL *HI* (05/28/23 7:15 AM) 29 mg/dL *HI* (05/27/23 6:00 AM) BUN/Creat Ratio - CRD 18.9 (05/30/23:47 AM) 20.4 (05/28/23 7:15 AM) 23.6 (05/27/23 6:00 AM) Creatinine, Enzymatic - CRD [0.67-1.17 mg/dL] 1.06 mg/dL (05/30/23 5:47 AM) 1.13 mg/dL (05/28/23 7:15 AM) 1.23 mg/dL *HI* (05/27/23 6:00 AM) Glucose - CRD [70-99 mg/dL] 98 mg/dL 4 (05/30/23 5:47 AM) 101 mg/dL 5 *HI* (05/28/23 7:15 AM) 109 mg/dL 6 *HI* (05/27/23 6:00 AM) Calcium - CRD [8.5-10.1 mg/dL] 9.3 mg/dL (05/30/23:47 AM) 9.5 mg/dL (05/28/23 7:15 AM) 8.8 mg/dL (05/27/23 6:00 AM) Alkaline Phosphatase - CRD [45-117 units/L] 67 units/L (05/30/23 5:47 AM) 73 units/L (05/27/23 6:00 AM) 67 units/L (05/23/23 6:40 AM) ALT - CRD [12-78 units/L] 27 units/L (05/30/23 5:47 AM) 30 units/L (05/27/23 6:00 AM) 24 units/L (05/23/23 6:40 AM) AST - CRD [0-37 units/L] 21 units/L (05/30/23 5:47 AM) 27 units/L (05/27/23 6:00 AM) 13 units/L (05/23/23 6:40 AM) Bilirubin, Total - CRD [0.2-1.0 mg/dL] 0.2 mg/dL (05/30/23 5:47 AM) 0.2 mg/dL (05/27/23 6:00 AM) 0.3 mg/dL (05/23/23 6:40 AM) Total Protein - CRD [6.4-8.2 G/DL] 6.5 G/DL (05/30/23:47 AM) 6.5 G/DL (05/27/23 6:00 AM) 6.9 G/DL (05/23/23 6:40 AM) Albumin - CRD [3.4-5.0 G/DL] 3.0 G/DL *LOW* (05/30/23:47 AM) 2.7 G/DL *LOW* (05/27/23 6:00 AM) 3.1 G/DL *LOW* (05/23/23 6:40 AM) Globulin - CRD 3.5 G/DL (05/30/23:47 AM) 3.8 G/DL (05/27/23 6:00 AM) 3.8 G/DL (05/23/23 6:40 AM) Albumin/Globulin Ratio - CRD 0.9 (05/30/23 5:47 AM) 0.7 (05/27/23 6:00 AM) 0.8 (05/23/23:40 AM) Anion Gap - CRD [3.0-11.0] 7.0 (05/30/23 5:47 AM) 5.0 (05/28/23 7:15 AM) 8.0 (05/27/23 6:00 AM) Color - CRD Yellow (05/24/23 11:00 PM) Specific Rex - CRD [1.003-1.030] 1.012 (05/24/23 11:00 PM) pH, Urine - CRD 6.5 (05/24/23 11:00 PM) Glucose, Urine - CRD [Negative mg/dL] Negative mg/dL (05/24/23 11:00 PM) Bilirubin, Urine - CRD [Negative] Negative 7 (05/24/23 11:00 PM) Occult Blood - CRD [Negative] Moderate *ABN* (05/24/23 11:00 PM) Clarity - CRD [Clear] Turbid *ABN* (05/24/23 11:00 PM) Ketones - CRD [Negative mg/dL] Negative mg/dL (05/24/23 11:00 PM) Protein, Urine - CRD [Negative] 30 *ABN* (05/24/23 11:00 PM) Nitrite, Urine - CRD [Negative] Positive *ABN* (05/24/23 11:00 PM) Urobilinogen - CRD [>0.2] 1.0 *ABN* (05/24/23 11:00 PM) Leukocyte Esterase - CRD [Negative] Large *ABN* (05/24/23 11:00 PM) WBC, Urine - CRD [0-5] >100 *ABN* (05/24/23 11:00 PM) RBC, Urine - CRD [0-2] 3-5 *ABN* (05/24/23 11:00 PM) Squamous Epithelial Cells - CRD [None Seen] None Seen (05/24/23 11:00 PM) Bacteria - CRD [Negative] Many *ABN* (05/24/23 11:00 PM) WBC Clumps - CRD Present *ABN* (05/24/23 11:00 PM) Culture, Urine - CRD Patient: BESSY DOE : 1940 Age: Sex: M Location: [facility] Ordered By: Maria E Cleary PA-C MICROBIOLOGY Source: Urine Collected: 05/24/2023 23:00 Order#: [id number] Received: 05/25/2023 11:40 C Urine Final: 05/28/2023 7:38 >100,000 cfu/ml Escherichia coli 10,000-49,000 cfu/ml Klebsiella (Formerly Enterobacter) aerogenes EC Entaer EC Amik S Amp S Amp/Sul S Azt S Cefaz S Cefep S Ceftri S Cipro S Erta S Gent S Maria Elena S Nitro S Tige S Tobra S SXT S Pip/Landry S Entaer Amik S Azt S Cefep S Ceftri S Cipro S Erta S Gent S Maria Elena S Nitro R Tige S Tobra S SXT S Pip/Landry S (05/24/23 11:00 PM) Hematocrit - CRD [37.1-50.6 %] 31.4 % *LOW* (05/30/23 5:47 AM) 30.0 % *LOW* (05/27/23 6:00 AM) 31.7 % *LOW* (05/23/23 6:40 AM) Hemoglobin - CRD [12.6-17.1 G/DL] 10.2 G/DL *LOW* (05/30/23 5:47 AM) 9.5 G/DL *LOW* (05/27/23 6:00 AM) 10.2 G/DL *LOW* (05/23/23 6:40 AM) Hyaline Casts - CRD [0-2] 0-2 (05/24/23 11:00 PM) Auto Neutrophil - CRD 44.9 % (05/30/23 5:47 AM) 59.6 % (05/27/23 6:00 AM) 42.4 % (05/23/23 6:40 AM) Auto Lymphocyte - CRD 41.6 % (05/30/23 5:47 AM) 30.6 % (05/27/23 6:00 AM) 41.7 % (05/23/23 6:40 AM) Auto Monocyte - CRD 8.5 % (05/30/23 5:47 AM) 8.0 % (05/27/23 6:00 AM) 12.2 % (05/23/23 6:40 AM) Auto Eos - CRD 4.0 % (05/30/23 5:47 AM) 1.0 % (05/27/23 6:00 AM) 3.3 % (05/23/23 6:40 AM) Auto Basophil - CRD 0.6 % (05/30/23 5:47 AM) 0.3 % (05/27/23 6:00 AM) 0.2 % (05/23/23 6:40 AM) Culture Indicated? - CRD Yes 8 (05/24/23 11:00 PM) Imm Granulocyte - CRD 0.4 % (05/30/23 5:47 AM) 0.5 % (05/27/23 6:00 AM) 0.2 % (05/23/23 6:40 AM) Abs Imm Granulocyte - CRD [<=0.05 x10^3/mcL] <0.03 x10^3/mcL (05/30/23 5:47 AM) 0.03 x10^3/mcL (05/27/23 6:00 AM) <0.03 x10^3/mcL (05/23/23 6:40 AM) Abs Lymphocyte - CRD [0.73-2.76 x10^3/mcL] 2.10 x10^3/mcL (05/30/23 5:47 AM) 1.79 x10^3/mcL (05/27/23 6:00 AM) 2.15 x10^3/mcL (05/23/23 6:40 AM) Abs Monocyte - CRD [0.30-0.82 x10^3/mcL] 0.43 x10^3/mcL (05/30/23 5:47 AM) 0.47 x10^3/mcL (05/27/23 6:00 AM) 0.63 x10^3/mcL (05/23/23 6:40 AM) Abs Eosinophil - CRD [0.04-0.54 x10^3/mcL] 0.20 x10^3/mcL (05/30/23 5:47 AM) 0.06 x10^3/mcL (05/27/23 6:00 AM) 0.17 x10^3/mcL (05/23/23 6:40 AM) Abs Basophil - CRD [<=0.08 x10^3/mcL] 0.03 x10^3/mcL (05/30/23 5:47 AM) <0.03 x10^3/mcL (05/27/23 6:00 AM) <0.03 x10^3/mcL (05/23/23 6:40 AM) Absolute NRBC - CRD [<=0.01 x10^3/mcL] 0.00 x10^3/mcL (05/30/23 5:47 AM) 0.00 x10^3/mcL (05/27/23 6:00 AM) 0.00 x10^3/mcL (05/23/23 6:40 AM) MPV - CRD [8.97-11.96 fL] 9.70 fL (05/30/23 5:47 AM) 9.70 fL (05/27/23 6:00 AM) 9.40 fL (05/23/23 6:40 AM) Abs Neut - CRD [1.78-5.38 x10^3/mcL] 2.27 x10^3/mcL (05/30/23 5:47 AM) 3.48 x10^3/mcL (05/27/23 6:00 AM) 2.18 x10^3/mcL (05/23/23 6:40 AM) 1Result Comment: Calculated using method: Cockcroft-Gault (default) Calculated using Formula : (140-ageInYears)*IBW/(72*scrInMGperDL) Age: 83 (37663122854.0) Serum Creatinine: 1.06 mg/dL (33407597870.0) Height: 168 cm (46106377666.0) Weight: 70.2 kg (IBW = 64.126 kg) 2Result Comment: Calculated using method: Cockcroft-Gault (default) Calculated using Formula : (140-ageInYears)*IBW/(72*scrInMGperDL) Age: 83 (78899912648.0) Serum Creatinine: 1.06 mg/dL (93874605644.0) Height: 168 cm (57930996174.0) Weight: 69.8 kg (IBW = 64.126 kg) 3Result Comment: Calculated using method: Cockcroft-Gault (default) Calculated using Formula : (140-ageInYears)*IBW/(72*scrInMGperDL) Age: 83 (81985346136.0) Serum Creatinine: 1.13 mg/dL (59176868204.0) Height: 168 cm (09195885743.0) Weight: 69.8 kg (IBW = 64.126 kg) 4Result Comment: Impairment: Fasting glucose 100-125 mg/dL Diabetes Mellitus: Fasting glucose >=126 mg/dL Random glucose >=200 mg/dL 5Result Comment: Impairment: Fasting glucose 100-125 mg/dL Diabetes Mellitus: Fasting glucose >=126 mg/dL Random glucose >=200 mg/dL 6Result Comment: Impairment: Fasting glucose 100-125 mg/dL Diabetes Mellitus: Fasting glucose >=126 mg/dL Random glucose >=200 mg/dL 7Result Comment: Positive UA bilirubin results should be confirmed with serum bilirubin result. 8Result Comment: A culture will be performed on this sample based on reflex criteria. Vital Signs Most recent to oldest [Reference Range]: 1 2 3 Temperature Oral F [96.4-99.1 DegF] 97.7 DegF (05/31/23 8:00 AM) 98.1 DegF (05/30/23 7:51 PM) 97.3 DegF (05/30/23 4:00 PM) Peripheral Pulse Rate [60-100 bpm] 66 bpm (05/31/23 8:00 AM) 60 bpm (05/30/23 7:51 PM) 57 bpm *LOW* (05/30/23 4:00 PM) Respiratory Rate [14-20 br/min] 18 br/min (05/30/23 7:51 PM) 17 br/min (05/29/23 9:00 PM) 16 br/min (05/28/23 8:42 PM) Blood Pressure [90-140/60-90 mmHg] 155/82mmHg *HI* (05/31/23 7:57 AM) Systolic Blood Pressure [90-140 mmHg] 150 mmHg *HI* (05/30/23 7:51 PM) 146 mmHg *HI* (05/30/23 4:00 PM) Diastolic Blood Pressure [60-90 mmHg] 74 mmHg (05/30/23 7:51 PM) 68 mmHg (05/30/23 4:00 PM) Mean Arterial Pressure, Cuff 106 mmHg (05/31/23 7:57 AM) 99 mmHg (05/30/23 7:51 PM) 83 mmHg (05/30/23 7:20 AM) Extremity used to obtain blood pressure Right Arm (05/30/23 7:51 PM) Right Arm (05/29/23 9:00 PM) Right Arm (05/26/23 9:20 PM) Cuff Size. Small (05/30/23 7:51 PM) Small (05/29/23 9:00 PM) Small (05/26/23 9:20 PM) Diastolic Blood Pressure with Activity [60-90 mmHg] 71 mmHg (05/17/23 10:30 AM) Systolic Blood Pressure with Activity [90-140 mmHg] 145 mmHg *HI* (05/17/23 10:30 AM) Peripheral Pulse Rate Post [60-100 bpm] 62 bpm (05/22/23 9:00 AM) Systolic Blood Pressure Post [90-140 mmHg] 101 mmHg (05/22/23 9:00 AM) Diastolic Blood Pressure Post [60-90 mmHg] 62 mmHg (05/22/23 9:00 AM) SpO2 Post [94-100 %] 98 % (05/22/23 9:00 AM) Temperature Oral 36.5 DegC 1 (05/31/23 8:00 AM) 36.7 DegC 2 (05/30/23 7:51 PM) 36.4 DegC 3 (05/29/23 9:00 PM) 1Result Comment: Charted by SYSTEM secondary to charting of Temperature Oral F on a Vitals Monitor. Rule: VITALSLINK_CALCULATIONS_2 2Result Comment: Charted by SYSTEM secondary to charting of Temperature Oral F on a Vitals Monitor. Rule: VITALSLINK_CALCULATIONS_2 3Result Comment: Charted by SYSTEM secondary to charting of Temperature Oral F on a Vitals Monitor. Rule: VITALSLINK_CALCULATIONS_2 Social History Social History Type Response Sex Male
--- NOTE | 2023-07-04 11:57 | W.ED.GENAD ---
Discharge Plan Disposition Patient Disposition: Admit to [facility] Condition: Serious Discharge Details Clinical Impression: Acute UTI (urinary tract infection), Weakness, Low blood pressure, MANJU (acute kidney injury), Acute non-ST elevation myocardial infarction (NSTEMI), Anemia, Hypomagnesemia Primary Care Provider: Justin Leal ED Provider: Geraldine Lee Home Meds and New Rx's Prescriptions: No Action allopurinol 100 mg tablet 200 mg PO DAILY Qty: 180 3RF oxycodone 5 mg tablet 5 mg PO DAILY PRN rosuvastatin [Crestor] 10 mg tablet 10 mg PO DAILY ropinirole 0.5 mg tablet 1 mg PO QHS diazepam 5 mg tablet 2.5 - 5 mg PO QHS PRN (Reason: sleep/spasm) Qty: 30 0RF tamsulosin [Flomax] 0.4 mg capsule 0.4 mg PO DAILY Qty: 90 1RF clopidogrel 75 MG tablet 75 mg PO DAILY cholecalciferol (vitamin D3) 1,000 unit tablet 400 unit PO DAILY baclofen 10 mg tablet 10 mg PO TID Qty: 90 0RF celecoxib [Celebrex] 200 MG capsule 200 mg PO DAILY ascorbic acid (vitamin C) 1,000 MG tablet 1,000 mg PO DAILY lidocaine 4 % Adhesive Patch,Medicated 1 patch TOPICAL DAILY Medical Decision Making This is a 83-year-old male with a history of a cervical spine fracture and bilateral lower extremity stents who recently had a laminectomy of C1-C2 at [facility] on April 11 of this year. The patient was discharged to rehab and came home on May 31. His is his primary caregiver. He has chronic bilateral upper extremity weakness but presents today with generalized weakness that began 1 to 2 days ago and which he describes as feeling as though his legs are weak. He is on Plavix since his femoral stents. He also has a pacemaker. He tells me he has never had a myocardial infarction. He was brought in by EMS today after 2 falls because of his generalized weakness. He is denying any injury. He denies hitting his head or loss of consciousness. I will obtain a CT noncontrast of the head and cervical spine. Initially I ordered a chest x-ray but I have changed that to a CTA of the chest abdomen and pelvis to rule out dissection. He was also recently started on Flomax about a week ago which may be contributing to his orthostatic hypotension. We will also obtain an EKG and cardiac enzymes. He does have a pacemaker and his EKG will likely demonstrate a paced rhythm Differential Diagnosis Differential Diagnosis: Generalized weakness, anemia, ACS, GI bleed, electrolyte abnormality, Floma Medical Records Medical records reviewed: Yes I reviewed the patient's medical records. Imaging Data Radiologic Study: Imaging: CT Scan (CT head and cervical spine without contrast) Radiologist's impression: No acute intracranial findings on this non-infused CT scan of the brain. Multilevel fusion hardware throughout the cervical spine. No obvious evidence of fracture nor hardware dislodgment in the cervical spine canal. No evidence of cervical spine fracture, malalignment, nor acute compromise of the cervical spinal canal Radiologic Study #2: Imaging: CT Scan (CTA thorax abdomen and pelvis) My impression: 1. nondilated ascending thoracic aorta. There is some probable artifact. For true aortic dissection in the ascending thoracic aorta. No intimal flaps evident in the neck arch and the descending thoracic aorta normal within the abdominal aorta. No evidence of pericardial effusion. 2. Atherosclerotic abdominal aorta and iliac arteries with nonoccluded left iliac artery stent. 3. No ischemic appearing bowel loops and no ascites. 4. Incidentally noted is a possible neoplasm versus abscess in the left kidney measuring 3.8 x 2.0 x 3.5 cm. No other renal findings. No calculi. No hydronephrosis. 5. Calcified pleural plaque in the lower right lung which is unchanged from CT scan of 2013. Lab Data Lab results reviewed: Yes I reviewed the patient's lab results. Lab results narrative: Positive troponin, anemia, urinary tract infection ECG Data Attestation: I personally reviewed and interpreted this ECG (s) as follows: Prior ECG tracings: available for review Interpretation: 100% paced Core Measures AMI Core Measures Followed: Yes HPI General Date/Time Provider Initiated Documentation: 07/04/23 11:21. Information obtained by: patient, family (), EMS, RN notes reviewed and old records reviewed. HPI Narrative: Time seen was on arrival in bed 2. The patient is an unfortunate male on Plavix since he had bilateral femoral stents in 2012 and 2013 at [facility]. He is brought in by EMS for several falls. The patient had a laminectomy on April 11, 2023 at [facility] of the C1-C2 cervical spine. This was done at [facility] and he was discharged to rehab. He was discharged home on 05/31/2023. He states that he had generalized weakness at PT yesterday and was unable to stand. last night while attempting to get into bed from a wheelchair to a walker he states his legs felt heavy and he fell backwards but missed the wheelchair. He denies hitting his head or injuring himself. He tells me that he just feels weak. He had a second episode this morning when trying to get to the bathroom from the wheelchair and caught his left leg and his who was assisting him and the patient both fell but they deny any injury. His tells me that he did not have any neck pain when he broke his neck previously. He was scheduled to see Dr. Lennon from urology today for follow-up from urinary retention. His states that his urine looked concentrated but did not have a foul odor. He was placed on Flomax and has been on that for about 1 week. He is denying any chest pain or dizziness. He denies any shortness of breath. He denies feeling any urinary retention. He may have had a low-grade fever. The patient also has a pacemaker. He tells me he has no history of coronary artery disease. He has chronic bilateral arm weakness from his prior cervical fracture which is unchanged. He denies any aggravating or alleviating factors. The patient's only complaint is of his neck pain which is unchanged. He is complaining of generalized weakness and in both legs. His chronic upper extremity weakness is unchanged. He denies any abdominal pain chest pain or shortness of breath. Related Data Home Medications Medication Instructions Recorded Confirmed ascorbic acid (vitamin C) 1,000 mg 1,000 mg PO DAILY 02/12/13 07/04/23 tablet celecoxib 200 mg capsule (Celebrex) 200 mg PO DAILY 02/12/13 07/04/23 clopidogrel 75 mg tablet 75 mg PO DAILY 04/19/15 07/04/23 cholecalciferol (vitamin D3) 25 400 unit PO DAILY 01/30/19 07/04/23 mcg (1,000 unit) tablet ropinirole 0.5 mg tablet 1 mg PO QHS 01/30/19 07/04/23 rosuvastatin 10 mg tablet (Crestor) 10 mg PO DAILY 01/30/19 07/04/23 lidocaine 4 % topical patch 1 patch topical DAILY 05/04/20 07/04/23 allopurinol 100 mg tablet 200 mg (2 x 100 mg) PO DAILY #180 09/12/22 07/04/23 tab-caps oxycodone 5 mg tablet 5 mg PO DAILY PRN 03/20/23 07/04/23 diazepam 5 mg tablet 2.5 - 5 mg (0.5 - 1 x 5 mg) PO QHS 06/11/23 07/04/23 PRN sleep/spasm #30 tabs tamsulosin 0.4 mg capsule (Flomax) 0.4 mg PO DAILY #90 caps 06/19/23 07/04/23 baclofen 10 mg tablet 10 mg PO TID #90 tabs 07/03/23 07/04/23 Previous Rx's Medication Instructions Recorded allopurinol 100 mg tablet 200 mg (2 x 100 mg) PO DAILY #180 09/12/22 tab-caps diazepam 5 mg tablet 2.5 - 5 mg (0.5 - 1 x 5 mg) PO QHS 06/11/23 PRN sleep/spasm #30 tabs tamsulosin 0.4 mg capsule (Flomax) 0.4 mg PO DAILY #90 caps 06/19/23 baclofen 10 mg tablet 10 mg PO TID #90 tabs 07/03/23 Allergies Allergy/AdvReac Type Severity Reaction Status Date / Time No Known Allergies Allergy Verified 07/04/23 13:32 General Stated Complaint: Dizzy/Sync CLIFFORD: 2 Review of Systems Narrative: see hpi PFSH All Active Problems (Updated 07/04/23 @ 14:34 by Geraldine Lee MD) Hypomagnesemia (Acute) Anemia (Chronic) Acute non-ST elevation myocardial infarction (NSTEMI) (Acute) MANJU (acute kidney injury) (Acute) Acute UTI (urinary tract infection) (Acute) History of prostate cancer (Acute) Leg muscle spasm (Acute) Low blood pressure (Acute) Weakness (Chronic) Diverticulosis (Chronic) Wrist pain, left (Acute) ? carpal tunnel ? 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 doesn't remember which leg) Family History Mother , 91 Stroke Father , 71 Heart disease Stroke Brother Heart disease Maternal Grandfather , 71 No problems noted. Paternal Grandfather , 36 No problems noted. Maternal Grandmother , 91 No problems noted. Paternal Grandmother , 68 Diabetes Heart disease Son No problems noted. Son , 39 Heart disease Daughter No problems noted. Social History Smoking/Tobacco Use Status: Former Tobacco Use tobacco type: cigarettes Quit Date: 08/26/05 Tobacco: How many years used: 40 Quit status: quit date established Second Hand Exposure: Yes Smoking risk assessment performed?: Yes Alcohol Intake: current Alcohol Intake frequency: a few times a week Alcohol type: beer, wine and hard liquor Substance use type: does not use Caregiver/Support person: No Household members: spouse Housing: house Communication Needs: Hard of Hearing Do you need help understanding health information?: Rarely Pets and animals: Yes Pets and animals: cat(s), dog(s) and horse(s) Sexually active: No Do you think of yourself as: straight/heterosexual Current gender identity: male What is your relationship status?: How often do you talk on the phone with friends or family?: three or more times per week How often do you get together with friends or relatives?: decline to answer How often do you attend mormonism or holiness services?: decline to answer Do you belong to any clubs or organized social groups?: no Panel score (0-1 are the most socially isolated patients): 2 What type of physical activity do you participate in: bicycling Duration: < 15 minutes/day Frequency: 5-6 times per week Rufina/Latter Day: none Special rufina needs: No Seatbelt use: always Drive intox or ride w/intox courier delivery driver: No Do you feel safe at home: Yes Do you feel safe in your relationship?: Yes Exam Narrative Exam Narrative: The patient is a well-developed well-nourished male with obvious contractures of his bilateral upper extremities. He is alert and oriented. His initial blood pressure was 72/37. Repeat was 90/51. He was not tachypneic tachycardic or febrile. His room air O2 sat was within normal limits at 94% on room air. Const General: cooperative, comfortable, no acute distress, well developed and well groomed Nutritional Appearance: average body habitus Orientation: alert, awake and oriented x3 HENMT Head: normal to inspection, no palpable skull fracture, normocephalic, atraumatic, no acral cyanosis, no Rebollar's sign, no occipital foramen tenderness, no palpable skull fracture, no raccoon eyes, no scalp tenderness, no temporal artery tenderness, No periorbital ecchymosis and other Ears: hearing grossly normal bilaterally and TM's normal bilaterally General nose exam: external nose normal and no nasal discharge Face and sinus: normal facial exam and dry mucous membranes Mouth: moist mucous membranes abnormal (Slightly dry) and other (No malocclusion of the teeth. No evidence of oral or dental trauma) Throat: posterior oropharynx normal Eyes General: appearance normal, both eyes and all related structures Eyelids: eyelids normal Conjunctivae: conjunctival abnormality (Slightly pale) bilaterally Pupils: PERRL EOM: EOM intact bilaterally Direct ophthalmoscopy: photophobia not present Neck Neck: no meningeal signs, trachea midline, supple, no anterior neck swelling, no lymphadenopathy noted, no tracheal deviation and other (The patient has a well-healed surgical scar of the posterior and anterior n) Lymphatic: no lymphadenopathy noted Other: Well-healed surgical scars anterior and posterior Chest Chest: normal inspection of the chest (There is a pacemaker palpable in the left upper anterior chest wall), normal palpation of entire chest wall and no tenderness Resp Effort & Inspection: normal respiratory effort, able to speak in complete sentences, no audible wheezes, no cough, no respiratory distress, no retractions, no stridor, not tachypneic and no use of accessory muscles Auscultation: clear to auscultation bilaterally, normal I/E ratio, no rales, no rhonchi, no wheezes and no rubs Tactile Fremitus: tactile fremitus absent Cardio Jugular venous pressure: no JVD Palpation: normal PMI Rate: regular rate Rhythm: regular rhythm Heart Sounds: S1 normal and S2 normal Other: Heart sounds are distant. GI Inspection: normal to inspection and no abdominal wall ecchymosis Auscultation: normal bowel sounds General: No CVA tenderness Back/Spine/Pelvis Other: No midline tenderness step-off or bony crepitus Skin Other: His skin is pale for ethnicity. He has some bruising of varying ages on his extremities. No obvious rashes Neuro General: patient alert, patient awake and patient oriented x3 Cranial Nerves: CN's II-XI intact bilaterally Sensory Exam: other (The patient has bilateral upper extremity weakness, contractures & atrophy) DTR's: Rt Patellar: 1+, Lt Patellar: 1+, Rt Ankle: 1+ and Lt Ankle: 1+ Plantar Reflexes: Equivocal: bilateral Pupils: Normal pupillary reactivity/response: bilateral Other: As above. Bilateral upper extremity weakness which is chronic and bilateral lower extremity weakness Extrem General: muscle atrophy (See above, bilateral upper extremities) Other: Bilateral upper extremities reveal contractures and atrophy and weakness. His lower extremities reveal symmetric mild peripheral edema. He is able to lift both legs slightly but not against resistance. Course 1351 PM I have written for Rocephin for presumptive UTI. Urine culture is pending 1505 p.m. second troponin is lower at 68. 1532 PM I have updated the patient and the family on the finding of the abnormality noted on the kidney. The patient's blood pressure is elevated and we will discontinue the norepinephrine 1553 PM after discontinuing the norepinephrine the patient's blood pressure fell again into the 80s systolic and we have reinitiated at 5 mics Reevaluation(s) Time: 12:51 Reevaluation: The patient's troponin came back positive. His EKG is 100% paced. I have updated the patient and his and we will be obtaining a cardiology consult from [facility]. The patient is already on Plavix. He is denying any chest pain presently or in the past 2 days. I will write for additional aspirin. 13 11 PM the patient has had a low blood pressure but is not feeling dizzy just generalized weakness. Manual blood pressure was 72 systolic. I will write for some norepinephrine. Time: 13:15 Reevaluation #2: I have updated the patient that we will be starting him on norepinephrine. He is still denying any dizziness or chest pain. He is not diaphoretic. And clinically does not appear hypotensive. It may be a false reading. We know he has vascular disease since he had bilateral femoral stents placed in 2012 and 2013. Time: 13:44 Additional Reevaluation(s): I have added a CT chest abdomen and pelvis to rule out dissection and ask radiology to cancel the chest x-ray. I have also added the CT of the cervical spine. His blood pressure and MAP are improving on the normal at the protocol. Consultations Consultation #1: Martilauri Fransico, the cardiology PA at department said that on admission there he had a systolic blood pressure of 136. His hemoglobin ranged between 10 and 11. His EKG at [facility] was 100% paced and did not look changed from today's. He had an echo on 04/02/2023 for hypotension and had a normal ejection fraction and no significant valvular disease. She recommended he be admitted for acute kidney injury. His previous creatinine was 0.7. I have added a VBG and a lactate and have paged the hospitalist. Ms. Bateman did not suggest heparin and she did not feel this was acute ACS. Time: 14:14 Consultation #2: I spoke with the hospitalist who suggested that we call the nursing tank house supervisor. We are checking with them Time: 14:28 Consultation #3: The hospitalist has excepted the patient for the ICU. They asked that we order a procalcitonin and blood cultures which have already been done. I have also written for Rocephin for his UTI and magnesium for his hypomanic Vital Signs Vital signs: Vital Signs Temperature 37.2 C 07/04/23 11:18 Pulse 60 07/04/23 11:18 Respiratory Rate 20 07/04/23 11:18 Blood Pressure 72/37 L 07/04/23 11:18 Pulse Oximetry 94 07/04/23 11:18 Temperature 37.2 C 07/04/23 11:18 Temperature Source Oral 07/04/23 11:18 Pulse 60 07/04/23 11:18 Respiratory Rate 20 07/04/23 11:26 Respiratory Effort Normal 07/04/23 11:26 Respiratory Depth Normal 07/04/23 11:26 Respiratory Pattern Normal 07/04/23 11:26 Blood Pressure 72/37 L 07/04/23 11:18 Blood Pressure Position Supine 07/04/23 11:18 Pulse Oximetry 94 07/04/23 11:18 Oxygen Delivery Method Room Air 07/04/23 11:18 Oxygen Flow Rate 0 07/04/23 11:18 Lab/Test Results Lab/Test Results: 07/04/23 11:37 Blood Blood Culture - Pending 07/04/23 11:25 Blood Blood Culture - Pending Laboratory Tests Range/Units 07/04/23 11:25 WBC (4.4-10.8) 10^3/uL 6.09 RBC (4.36-5.78) 10^6/uL 2.79 L Hgb (13.5-17.5) g/dL 8.4 L Hct (40.0-50.0) % 25.7 L MCV (80-95) fL 92 MCH (27.0-33.0) pg 30.1 MCHC (32.0-36.0) % 32.7 RDW (11.8-14.1) % 14.4 H Plt Count (130-400) 10^3/uL 210 MPV (8.0-11.0) fL 9.3 Immature Gran % 0.5 Neutrophils % 61.1 Lymphocytes % 26.1 Monocytes % 9.9 Eosinophils % 2.1 Basophils % 0.3 Nucleated RBC % (0.0-0.3) % 0.0 Absolute Neutrophils (1.2-6.7) 10^3/uL 3.72 Absolute Lymphocytes (1.2-3.4) 10^3/uL 1.59 Absolute Monocytes (0.1-0.8) 10^3/uL 0.60 Absolute Eosinophils (0.0-0.7) 10^3/uL 0.13 Absolute Basophils (0.0-0.2) 10^3/uL 0.02 PT (9.1-11.1) sec 12.3 H INR (0.9-1.1) 1.2 H APTT (23.6-32.8) sec 32.1 VBG Lactate (0.6-1.4) mmol/L 0.8 Critical Care Time Critical Care Time Critical Care Time: Yes Total Critical Care Time: 58 Attestation: This includes time at the bedside, review of labs, review of radiographs and review of EKG and consultation with cardiology and hospitalist AKHIL Have you Been Recently Intoxicated or Drunk Within the Last 30 days?: No Have you Ever Experienced Previous Episodes of Alcohol Withdrawal?: No Have you ever Experienced Withdrawal Seizures?: No Have you ever Experienced Delirium Tremens(DT)s?: No Have you ever undergone Alcohol Rehabilitation Treatment (i.e, inpt ot outpatient treatment programs)?: No Have you ever Experienced Blackouts?: No Have you ever Combined Alcohol with other Downers within the last 90 days?: No Have you ever Combined Alcohol with any other Substance of Abuse during the last 90 days?: No Positive Blood Alcohol level on Presentation? [PCS.BAL]: No Evidence of Increased Autonomic Activity (i.e. HR>120, tremor, sweating, agitation, nausea)?: No Result: 0
--- NOTE | 2023-07-04 12:11 | DI.CT_ITS ---
Exam(s) CT HEAD CERVICAL SPINE WO EXAM: CT HEAD CERVICAL SPINE WO CLINICAL HISTORY: near syncope. TECHNIQUE: Imaging Protocol: Axial computed tomography images with coronal and sagittal reformatted images were created and reviewed COMPARISON: No exams were available for comparison FINDINGS: BRAIN: There are no skull fractures nor fluid in the visualized paranasal sinuses. There is no evidence of intracranial hemorrhage, mass effect, or shift of midline structures. There are no extra-axial fluid collections. The ventricles are not enlarged or shifted and there is no blo od within the ventricular system nor within the basal cisterns. CERVICAL SPINE: There is multilevel fusion hardware throughout the entire cervical spine, including C1 arch hardware. There is been multilevel removal of posterior osseous elements including the posterior aspect of th is C1 arch. Driss well as levels in the mid-lower cervical spine. Screws and are securing screws appe ar intact. There is no evidence of acute fracture nor significant listhesis. There is no retropulsi on of intervertebral disc devices into the canal. Multilevel facet fusion evident There is no significant facet joint malalignment. No significant osseous lesions evident. IMPRESSION: No acute intracranial findings on this noninfused CT scan of the brain. Multilevel fusion hardware throughout the cervical spine. No obvious evidence of fracture nor hardwa re dislodgement in the cervical spinal canal. No evidence of cervical spine fracture, malalignment, nor acute compromise of the cervical spinal can al. RADIATION DOSE DELIVERED: Total DLP DATA REPOSITORY: All CT scans at this facility are submitted to the National Radiology Data Registry (NRDR) Dose Index Registry (DIR) with the [employer] (ACR). RADIATION OPTIMIZATION: All CT scans at this facility use at least one of these dose optimization te chniques: automated exposure control; mA and/or kV adjustment per patient size (includes targeted exa ms where dose is matched to clinical indication); or iterative reconstruction.
[2023-07-04 12:22] LABS: ALT 20 U/L (16-63); AST 31 U/L (15-37); Albumin 2.5 g/dL (3.4-5.0); Alkaline Phosphatase 50 U/L (46-116); Anion Gap 9.3 mmol/L (3-11); BUN 28 mg/dL (7-18); Bilirubin, Total 0.4 mg/dL (0.2-1.0); CO2 23.7 mmol/L (21.0-32.0); CREATININE 1.3 mg/dL (0.70-1.30); Calcium 8.6 mg/dL (8.5-10.1); Chloride 103 mmol/L (98-107); Estimated GFR 55.19 (mL/min/1.73m2); Glucose 109 mg/dL (74-106); Magnesium 1.6 mg/dL (1.8-2.4); Potassium 4.1 mmol/L (3.5-5.1); Sodium 136 mmol/L (136-145)
[2023-07-04 12:29] LABS: Troponin I 74 ng/L (<or=60)
[2023-07-04 12:57] LABS: TSH 1.69 uIU/mL (0.36-3.74)
[2023-07-04] MEDS: Aspirin 81 MG CHEW 324 MG CH (12:58)
[2023-07-04] MEDS: Normal Saline 250 ML 500 ML IV (13:00)
[2023-07-04] MEDS: Norepinephrine in D5W 8 MG/250 ML BAG 9.4 MG IV (13:25)
--- NOTE | 2023-07-04 13:40 | DI.CT_ITS ---
Exam(s) CT THORAX ABD/PEL CTA EXAM: CT THORAX ABD/PEL CTA CLINICAL HISTORY: rule out dissection. TECHNIQUE: Imaging Protocol: Axial computed tomography images with coronal and sagittal reformatted images were created and reviewed CONTRAST MATERIAL: Intravenous: Omnipaque 350 Contrast volume:100 ml Oral: None COMPARISON: CR CHEST ONE VIEW IN RAD DEPT from 02/12/2013 CR ABD FLAT UPRIGHT PA CHEST from 02/12/2013 CR ABDOMEN 2 VIEW FLAT, UPRIGHT from 02/16/2013 CT ABD PELVIS WITH CONTRAST from 02/18/2013 CR ABD FLAT UPRIGHT PA CHEST from 06/03/2015 FINDINGS: CHEST: AORTA: Diameter of the ascending thoracic aorta is within normal limits-3.4 cm. There is some artifa ct just above the aortic valve, doubtful for ordered dissection. There is no intimal flap within the aortic arch. Descending thoracic aorta exhibits upper normal diameter and no evidence of dissection . Abdominal aorta is calcified but with no evidence of dissection. Common iliac arteries are calcif ied. There is a stent in the left iliac artery. No dissection. CARDIAC: Heart size is normal. pacemaker wires noted. There is no pericardial effusion. LUNGS: Calcified pleural plaque in the right lung base again noted, as was evident on CT scan 2013. There are no confluent pulmonary infiltrates nor pleural effusions. No ominous pulmonary nodules. N o findings in trachea and mainstem bronchi. MEDIASTINUM: There is no hilar nor mediastinal adenopathy. Heterogeneous thyroid upper normal size. ABDOMEN: There is no evidence of abdominal aortic aneurysm nor dissection.There is a nonoccluded stent in the left iliac artery. There is no aneurysmal dilatation of the common iliac arteries.There is calcified plaque at the origin of the celiac and superior mesenteric arteries. These vessels are not occluded . Also no emboli within these vessels. The inferior mesenteric artery appears to be patent. Renal arteries are patent. Kidneys exhibit normal size. There is no ascites. There are no ischemic appearing bowel loops. LIVER: There are no focal hepatic lesions nor dilatation of intrahepatic ducts. GALLBLADDER/BILIARY: No obvious gallbladder pathology. CBD is not dilated. PANCREAS: No evidence of pancreatic mass nor dilatation of the pancreatic duct. SPLEEN: Spleen is not enlarged. There are no intrasplenic lesions. ADRENALS: There are no significant adrenal masses. KIDNEYS: Right kidney unremarkable. There is a mass density in the upper pole region of the left kid tahmina which measures 3.8 cm cephalocaudal by 2 cm wide by 3.5 cm AP. Either infectious process such as developing renal abscess or possibly neoplasm. There are no renal calculi. No hydronephrosis. No hydroureter. Urinary bladder is distended. Prostate size upper normal. Seminal vesicles unremarkab le. No calculi nor hydronephrosis. No solid renal masses. ABDOMINAL AORTA: The above LYMPH NODES: There is no retroperitoneal nor para-aortic adenopathy. No obvious mesenteric masses. ABDOMINAL WALL: No evidence of significant anterior abdominal wall hernia. GI: Extensive sigmoid closest without obvious diverticulitis. PELVIS: LYMPH NODES: There is no intrapelvic nor inguinal adenopathy. GI: No evidence of appendicitis.No evidence of sigmoid diverticulitis. URINARY BLADDER: Distended REPRODUCTIVE: There are surgical clips in the region the prostate. OSSEOUS: No significant osseous lesions. No fractures. IMPRESSION: 1. Nondilated ascending thoracic aorta. There is some probable artifact. For true aortic dissection in the ascending thoracic aorta. No intimal flaps evident in the neck arch and descending thoracic aorta nor within the abdominal aorta. No evidence of pericardial effusion. 2. Atherosclerotic abdominal aorta and iliac arteries with a nonoccluded left iliac artery stent. 3. No ischemic appearing bowel loops and no ascites. 4. Incidentally noted is a possible neoplasm versus abscess in the left kidney measuring 3.8 x 2.0 x 3.5 cm. No other renal findings. No calculi. No hydronephrosis. 5. Calcified pleural plaque in the lower right lung which is unchanged from CT scan of 2013. RADIATION DOSE DELIVERED: Total DLP DATA REPOSITORY: All CT scans at this facility are submitted to the National Radiology Data Registry (NRDR) Dose Index Registry (DIR) with the [employer] (A[employer]). RADIATION OPTIMIZATION: All CT scans at this facility use at least one of these dose optimization te chniques: automated exposure control; mA and/or kV adjustment per patient size (includes targeted exa ms where dose is matched to clinical indication); or iterative reconstruction.
[2023-07-04 13:41] LABS: Bilirubin Negative (Negative); Blood Moderate (Negative); Clarity Cloudy (Clear); Glucose Negative (Negative); Ketones Negative (Negative); Leukocyte Esterase Moderate (Negative); Nitrite Negative (Negative); Specific Gravity 1.025 (1.005-1.025); Urobilinogen 0.2 mg/dL (Up to 0.2); pH 6.5 (5-8)
[2023-07-04 13:49] LABS: Bacteria Moderate HPF (Negative); C & S Indicated? Yes; Casts 0-2 Hyaline LPF (Negative); Crystals Negative HPF (Negative); Epithelial Cells Few HPF (Negative); Mucus Negative (Negative); Other Cells Rare Renal (Negative); WBC >50 HPF (0-5)
--- NOTE | 2023-07-04 13:50 | NUR.NOTE ---
Instructed by ER Physician to continue NS due to hypotention. BP concern brought to ER Physician numerous times during care, after significant time in ER with no change after 2 liters given. Due to concern for continuous hypotention recommendation made to initiate a pressure to provider. Order given and Levophed initiated with great effect. VG Nursing Note:
[2023-07-04] MEDS: Omnipaque 350 MG/ML 100 ML BTL IJ (14:21)
[2023-07-04] MEDS: Normal Saline - Diluent 50 ML VIAL IJ (14:26)
[2023-07-04] MEDS: Normal Saline 1,000 ML 1000 ML IV (14:30)
[2023-07-04 14:39] LABS: Troponin I 62 ng/L (<or=60)
--- NOTE | 2023-07-04 14:43 | NUR.NOTE ---
Prior to leaving to imaging ETCO2 placed on Pt with continuous readings in the low to mid 20's. Dr. Lee was made aware of this who stated it was fine and to go to imaging. Pt went to imaging with out any complications noted. VGNursing Note:
[2023-07-04] MEDS: cefTRIAXone 2 GM/50 ML BAG IVPB (14:58)
[2023-07-04 15:13] LABS: BE (Venous) -4 mmol/L (-2-3); HCO3 (Venous) 22 mmol/L (23-28); O2 Sat (Venous) 71 %; TCO2 (Venous) 21 mmol/L (24-29); pCO2 (Venous) 38 mmHg (41-51); pH (Venous) 7.37 (7.31-7.41); pO2 (Venous) 40 mmHg
[2023-07-04 15:16] LABS: Lactate 0.9 mmol/L (0.6-1.4)
[2023-07-04] MEDS: MAGNESIUM SULFATE 1 GM/100 ML BAG IVPB ×2 (15:34→22:22)
[2023-07-04 16:07] LABS: Procalcitonin 0.8 ng/mL
--- NOTE | 2023-07-04 16:10 | NUR.NOTE ---
Nursing Note:[id number] made aware that the patients blood pressure was starting to trend up. ordered for norepi to be shut off. RN followed orders
[2023-07-04 16:51] LABS: COVID-19 PCR Negative (Negative); Influenza A PCR Negative (Negative); Influenza B PCR Negative (Negative); RSV PCR Negative (Negative)
[2023-07-04 16:57] LABS: Source NASOPHARYNX
--- NOTE | 2023-07-04 17:23 | W.PC.ACHO ---
Registration Status: REG ER Primary Language: Preferred Language: French ED Information & Data Chief Complaint Dizzy/Sync 07/04/23 12:52 Other Complaint Fall/Non TraumaCriteria 07/04/23 11:18 Triage Note EMS went last night for a 07/04/23 11:18 fall, no transport, unknown vitals done. Today with Home Health OT, fell, vitals taken 60/40. EMS called. Same vitals obtained by EMS, fluids initiated in transport. Last BP 100/60 Medical / Surgical History (Last Reviewed 07/04/23 @ 13:31 by Geraldine Lee MD) Hx of chest pain Hyperlipidemia Peripheral arterial occlusive disease Hypertension RBBB Sinus bradycardia (Last Reviewed 07/04/23 @ 13:31 by Geraldine Lee MD) H/O spinal fusion Hx of spinal surgery H/O angioplasty Most Recent Vital Signs Temperature 37.2 C 07/04/23 11:18 Temperature Source Oral 07/04/23 11:18 Pulse 64 07/04/23 16:46 Pulse 68 07/04/23 16:50 Respiratory Rate 16 07/04/23 16:50 Respiratory Effort Normal 07/04/23 11:26 Respiratory Depth Normal 07/04/23 11:26 Respiratory Pattern Normal 07/04/23 11:26 Blood Pressure 164/47 H 07/04/23 16:46 Blood Pressure Mean 85 07/04/23 16:46 Blood Pressure Position Supine 07/04/23 11:18 Pulse Oximetry 95 07/04/23 16:50 Respiratory End-tidal CO2 22 07/04/23 16:06 Oxygen Delivery Method Room Air 07/04/23 11:18 Oxygen Flow Rate 0 07/04/23 11:18 Allergies No Known Allergies Allergy (Verified 07/04/23 13:32) Precautions Isolation Standard precaution 07/04/23 11:26 Active Medications Generic Name Dose Route Start Last Admin Trade Name Freq PRN Reason Stop Dose Admin Norepinephrine Bitartrate 8 mg in 250 mls @ 0 mls/hr 07/04/23 13:15 07/04/23 15:55 IV 9.4 mls/hr INFUSION CONG 9.4 mls/hr Titration Protocol Per Protocol Iohexol 100 ml 07/04/23 14:30 07/04/23 14:21 Omnipaque 350 Mg/Ml 100 Ml Btl IJ 08/03/23 23:59 100 ml DIRECTED CONG Administration Sodium Chloride 50 ml 07/04/23 14:30 07/04/23 14:26 Normal Saline - Diluent 50 Ml Vial IJ 50 ml .FOR DI USE CONG Administration IV IV Catheter Type [Right Saline Lock Forearm] IV Catheter Type [Right Saline Lock Antecubital] IV Catheter Gauge [Right 18 Forearm] IV Catheter Gauge [Right 20 Antecubital] Diagnostics 07/04/23 07/04/23 07/04/23 Range/Units 16:05 15:11 15:05 WBC (4.4-10.8) 10^3/uL RBC (4.36-5.78) 10^6/uL Hgb (13.5-17.5) g/dL Hct (40.0-50.0) % MCV (80-95) fL MCH (27.0-33.0) pg MCHC (32.0-36.0) % RDW (11.8-14.1) % Plt Count (130-400) 10^3/uL MPV (8.0-11.0) fL Immature Gran % Neutrophils % Lymphocytes % Monocytes % Eosinophils % Basophils % Nucleated RBC % (0.0-0.3) % Absolute Neutrophils (1.2-6.7) 10^3/uL Absolute Lymphocytes (1.2-3.4) 10^3/uL Absolute Monocytes (0.1-0.8) 10^3/uL Absolute Eosinophils (0.0-0.7) 10^3/uL Absolute Basophils (0.0-0.2) 10^3/uL PT (9.1-11.1) sec INR (0.9-1.1) APTT (23.6-32.8) sec VBG pH 7.37 (7.31-7.41) VBG pCO2 38 L (41-51) mmHg VBG pO2 40 mmHg VBG HCO3 22 L (23-28) mmol/L VBG Total CO2 21 L (24-29) mmol/L VBG O2 Saturation 71 % VBG Base Excess -4 L (-2-3) mmol/L VBG Lactate 0.9 (0.6-1.4) mmol/L Sodium (136-145) mmol/L Potassium (3.5-5.1) mmol/L Chloride (98-107) mmol/L Carbon Dioxide (21.0-32.0) mmol/L Anion Gap (3-11) mmol/L BUN (7-18) mg/dL Creatinine (0.70-1.30) mg/dL Est GFR (CKD-EPI 2020) (mL/min/1.73m2) Glucose (74-106) mg/dL Calcium (8.5-10.1) mg/dL Magnesium (1.8-2.4) mg/dL Total Bilirubin (0.2-1.0) mg/dL AST (15-37) U/L ALT (16-63) U/L Alkaline Phosphatase (46-116) U/L Troponin I Cancelled (<or=60) ng/L Total Protein (6.4-8.2) g/dL Albumin (3.4-5.0) g/dL Procalcitonin 0.8 ng/mL TSH (0.36-3.74) uIU/mL Urine Color (Yellow) Urine Clarity (Clear) Urine pH (5-8) Ur Specific [place] (1.005-1.025) Urine Protein (Negative) mg/dL Urine Ketones (Negative) mg/dL Urine Blood (Negative) Urine Nitrite (Negative) Urine Bilirubin (Negative) Urine Urobilinogen (Up to 0.2) mg/dL Ur Leukocyte Esterase (Negative) Urine RBC (0-2) HPF Urine WBC (0-5) HPF Ur Epithelial Cells (Negative) HPF Urine Crystals (Negative) HPF Urine Bacteria (Negative) HPF Urine Casts (Negative) LPF Urine Mucus (Negative) Urine Other (Negative) Ur Culture Indicated? Urine Glucose (Negative) mg/dL COVID-19 Source NASOPHARYNX SARS-CoV-2 (PCR) Negative (Negative) Influenza Type A (PCR) Negative (Negative) Influenza Type B (PCR) Negative (Negative) RSV (PCR) Negative (Negative) Patient ABO/Rh Antibody Screen 07/04/23 07/04/23 07/04/23 Range/Units 13:59 13:28 12:11 WBC (4.4-10.8) 10^3/uL RBC (4.36-5.78) 10^6/uL Hgb (13.5-17.5) g/dL Hct (40.0-50.0) % MCV (80-95) fL MCH (27.0-33.0) pg MCHC (32.0-36.0) % RDW (11.8-14.1) % Plt Count (130-400) 10^3/uL MPV (8.0-11.0) fL Immature Gran % Neutrophils % Lymphocytes % Monocytes % Eosinophils % Basophils % Nucleated RBC % (0.0-0.3) % Absolute Neutrophils (1.2-6.7) 10^3/uL Absolute Lymphocytes (1.2-3.4) 10^3/uL Absolute Monocytes (0.1-0.8) 10^3/uL Absolute Eosinophils (0.0-0.7) 10^3/uL Absolute Basophils (0.0-0.2) 10^3/uL PT (9.1-11.1) sec INR (0.9-1.1) APTT (23.6-32.8) sec VBG pH (7.31-7.41) VBG pCO2 (41-51) mmHg VBG pO2 mmHg VBG HCO3 (23-28) mmol/L VBG Total CO2 (24-29) mmol/L VBG O2 Saturation % VBG Base Excess (-2-3) mmol/L VBG Lactate (0.6-1.4) mmol/L Sodium Cancelled (136-145) mmol/L Potassium Cancelled (3.5-5.1) mmol/L Chloride Cancelled (98-107) mmol/L Carbon Dioxide Cancelled (21.0-32.0) mmol/L Anion Gap Cancelled (3-11) mmol/L BUN Cancelled (7-18) mg/dL Creatinine Cancelled (0.70-1.30) mg/dL Est GFR (CKD-EPI 2020) Cancelled (mL/min/1.73m2) Glucose Cancelled (74-106) mg/dL Calcium Cancelled (8.5-10.1) mg/dL Magnesium (1.8-2.4) mg/dL Total Bilirubin Cancelled (0.2-1.0) mg/dL AST Cancelled (15-37) U/L ALT Cancelled (16-63) U/L Alkaline Phosphatase Cancelled (46-116) U/L Troponin I 62 H* Cancelled (<or=60) ng/L Total Protein Cancelled (6.4-8.2) g/dL Albumin Cancelled (3.4-5.0) g/dL Procalcitonin ng/mL TSH (0.36-3.74) uIU/mL Urine Color Yellow (Yellow) Urine Clarity Cloudy (Clear) Urine pH 6.5 (5-8) Ur Specific [place] 1.025 (1.005-1.025) Urine Protein 100 H (Negative) mg/dL Urine Ketones Negative (Negative) mg/dL Urine Blood Moderate H (Negative) Urine Nitrite Negative (Negative) Urine Bilirubin Negative (Negative) Urine Urobilinogen 0.2 (Up to 0.2) mg/dL Ur Leukocyte Esterase Moderate H (Negative) Urine RBC 10-20 H (0-2) HPF Urine WBC >50 H (0-5) HPF Ur Epithelial Cells Few (Negative) HPF Urine Crystals Negative (Negative) HPF Urine Bacteria Moderate (Negative) HPF Urine Casts 0-2 Hyaline (Negative) LPF Urine Mucus Negative (Negative) Urine Other Rare Renal (Negative) Ur Culture Indicated? Yes Urine Glucose Negative (Negative) mg/dL COVID-19 Source SARS-CoV-2 (PCR) (Negative) Influenza Type A (PCR) (Negative) Influenza Type B (PCR) (Negative) RSV (PCR) (Negative) Patient ABO/Rh Antibody Screen 07/04/23 07/04/23 Range/Units 11:50 11:25 WBC 6.09 (4.4-10.8) 10^3/uL RBC 2.79 L (4.36-5.78) 10^6/uL Hgb 8.4 L (13.5-17.5) g/dL Hct 25.7 L (40.0-50.0) % MCV 92 (80-95) fL MCH 30.1 (27.0-33.0) pg MCHC 32.7 (32.0-36.0) % RDW 14.4 H (11.8-14.1) % Plt Count 210 (130-400) 10^3/uL MPV 9.3 (8.0-11.0) fL Immature Gran % 0.5 Neutrophils % 61.1 Lymphocytes % 26.1 Monocytes % 9.9 Eosinophils % 2.1 Basophils % 0.3 Nucleated RBC % 0.0 (0.0-0.3) % Absolute Neutrophils 3.72 (1.2-6.7) 10^3/uL Absolute Lymphocytes 1.59 (1.2-3.4) 10^3/uL Absolute Monocytes 0.60 (0.1-0.8) 10^3/uL Absolute Eosinophils 0.13 (0.0-0.7) 10^3/uL Absolute Basophils 0.02 (0.0-0.2) 10^3/uL PT 12.3 H (9.1-11.1) sec INR 1.2 H (0.9-1.1) APTT 32.1 (23.6-32.8) sec VBG pH (7.31-7.41) VBG pCO2 (41-51) mmHg VBG pO2 mmHg VBG HCO3 (23-28) mmol/L VBG Total CO2 (24-29) mmol/L VBG O2 Saturation % VBG Base Excess (-2-3) mmol/L VBG Lactate 0.8 (0.6-1.4) mmol/L Sodium 136 (136-145) mmol/L Potassium 4.1 (3.5-5.1) mmol/L Chloride 103 (98-107) mmol/L Carbon Dioxide 23.7 (21.0-32.0) mmol/L Anion Gap 9.3 (3-11) mmol/L BUN 28 H (7-18) mg/dL Creatinine 1.3 (0.70-1.30) mg/dL Est GFR (CKD-EPI 2020) 55.19 (mL/min/1.73m2) Glucose 109 H (74-106) mg/dL Calcium 8.6 (8.5-10.1) mg/dL Magnesium 1.6 L (1.8-2.4) mg/dL Total Bilirubin 0.4 (0.2-1.0) mg/dL AST 31 (15-37) U/L ALT 20 (16-63) U/L Alkaline Phosphatase 50 (46-116) U/L Troponin I 74 H* (<or=60) ng/L Total Protein 6.0 L (6.4-8.2) g/dL Albumin 2.5 L (3.4-5.0) g/dL Procalcitonin ng/mL TSH 1.69 (0.36-3.74) uIU/mL Urine Color (Yellow) Urine Clarity (Clear) Urine pH (5-8) Ur Specific [place] (1.005-1.025) Urine Protein (Negative) mg/dL Urine Ketones (Negative) mg/dL Urine Blood (Negative) Urine Nitrite (Negative) Urine Bilirubin (Negative) Urine Urobilinogen (Up to 0.2) mg/dL Ur Leukocyte Esterase (Negative) Urine RBC (0-2) HPF Urine WBC (0-5) HPF Ur Epithelial Cells (Negative) HPF Urine Crystals (Negative) HPF Urine Bacteria (Negative) HPF Urine Casts (Negative) LPF Urine Mucus (Negative) Urine Other (Negative) Ur Culture Indicated? Urine Glucose (Negative) mg/dL COVID-19 Source SARS-CoV-2 (PCR) (Negative) Influenza Type A (PCR) (Negative) Influenza Type B (PCR) (Negative) RSV (PCR) (Negative) Patient ABO/Rh A Negative Antibody Screen NEGATIVE 07/04/23 13:28 Urine Culture - Pending Urine - Reflex from Ua 07/04/23 11:37 Blood Culture - Pending Blood 07/04/23 11:25 Blood Culture - Pending Blood Intake and Output - 24 Hour Total 07/04/23 11:09 thru 07/04/23 16:35 Intake Total 669.74 Balance 669.74 Intake: IV 669.74 Falls Risk Assessment History of Falls Previous History 07/04/23 11:26 Contributing Factors Impairments 07/04/23 11:26 Ambulatory Aids Uses ambulatory device 07/04/23 11:26 Tubes/Lines None 07/04/23 11:26 Gait Evaluation W/any additional score 07/04/23 11:26 Fall Total Score 53 07/04/23 11:26 Level of Risk High Risk 07/04/23 11:26 Problems (Last Reviewed 07/04/23 @ 13:31 by Geraldine Lee MD) Hypomagnesemia (Acute) Anemia (Chronic) Acute non-ST elevation myocardial infarction (NSTEMI) (Acute) MANJU (acute kidney injury) (Acute) Acute UTI (urinary tract infection) (Acute) Low blood pressure (Acute) Weakness (Chronic) Notes 07/04/23 16:10 Nursing Notes by Shruthi Leong Nursing Note:[id number] made aware that the patients blood pressure was starting to trend up. MD ordered for norepi to be shut off. RN followed MD orders Initialized on 07/04/23 16:10 - END OF NOTE 07/04/23 14:43 Nursing Notes by Nora Pop Prior to leaving to imaging ETCO2 placed on Pt with continuous readings in the low to mid 20's. Dr. Lee was made aware of this who stated it was fine and to go to imaging. Pt went to imaging with out any complications noted. VGNursing Note: Initialized on 07/04/23 14:43 - END OF NOTE 07/04/23 13:50 Nursing Notes by Nora Pop Instructed by ER Physician to continue NS due to hypotention. BP concern brought to ER Physician numerous times during care, after significant time in ER with no change after 2 liters given. Due to concern for continuous hypotention recommendation made to initiate a pressure to provider. Order given and Levophed initiated with great effect. VG Nursing Note: Initialized on 07/04/23 13:50 - END OF NOTE v v v v v v v v v Sending and/or Receiving Nurses: Please use comment section below to note any information pertinent to the patient hand-off not included above. Information / Comments:Alert and oriented. present. U/A done. Ceftriaxone started in ER for UTI. Troponin elevation, Aspirin chewable 324mg given in ER. Magnesium sulfate given in ER. 2 liter bolus given in ER. Pt is currently on Norepinephrine 5mcg/min. Recent ER BP 169/51. Pt has a pacemaker he is 100% paced. Pt has refused a Lopez catheter in the ER. Med/Rec is completed. Flu/vid swab negative. ER placed a #18 RFA and a #20 RAC. Report received from:Bill Duncan RN
--- NOTE | 2023-07-04 17:54 | HPE_ITS ---
Date of service: 07/04/23 Time of Service: 17:54 Assessment and Plan Assessment and plan (1) Sepsis: Status: Acute Assessment and plan: patient presented w/evidence of UTI, CT findings suspicious for renal abscess versus mass and acute urinary retention w/ hypotension refractory to iv fluids requiring vasopressors. Patient is now admitted to ICU for broad spectrum antibiotics (begun on Ceftriaxone in the ED but now broadened to meropenem pending urine and blood cultures). BP have improved and norepinephrine has been weaned off. His IVC on bedside echo shows non-dilated IVC of 1.9 cm but less than 50% collaspability w/ inspiration, however RV appears small and underfilled and heart is hypercontractile. I suspect his troponin I leak is secondary to his sepsis. I would continue fluids but at lower rates but if he gets hypotensive again then I would resume norepinephrine. I will consult urology in the morning and get formal renal US to look at left kidney area in question. Critical care time spent interviewing and examining the patient, reviewing studies, discussing case with patient's nurse and consulting physicians was 60 minutes Qualifiers: Sepsis type: sepsis due to unspecified organism Sepsis acute organ dysfunction status: with acute organ dysfunction Severe sepsis acute organ dysfunction type: acute renal failure Acute renal failure type: unspecified S evere sepsis shock status: with septic shock Qualified Code(s): A41.9 - Sepsis, unspecified organism; R65.21 - Severe sepsis with septic shock; N17.9 - Acute kidney failure, unspecified (2) Renal abscess, left: Status: Suspected Assessment and plan: questionable renal mass vs abscess per CT readings. obtain formal renal US and urology consult in the morning (3) Acute UTI (urinary tract infection): Status: Acute (4) Hypomagnesemia: Status: Acute Assessment and plan: replaced w/ parenteral magnesium in the E.D. will repeat his levels (5) Anemia: Status: Chronic Assessment and plan: prior remote hx of iron deficiency anemia but patient denies any recent hx of anemia. he denies any melena or hematochezia. I will put him on PPI and obtain anemia workup in the morning. Stool was negative for occult blood tonight (6) MANJU (acute kidney injury): Status: Acute (7) Peripheral arterial occlusive disease: Assessment and plan: s/p bilateral iliofemoral stents, remains on Plavix chronically. aspirin was added per ED discussion w/ [facility] cardiology. I have kept the aspirin but feel that his troponin leak was d/t hypotension and sepsis. However he may have occult CAD given his hx of PAD. I asked him about any heart cath during his workup in [place] in 1999 when his pacer was placed and he does not recall any coronary catheterization. (8) DNR no code (do not resuscitate): Status: Chronic Assessment and plan: DNR/DNI per my discussion w/ the patient (9) DVT prophylaxis: Status: Acute Assessment and plan: enoxaparin SC History of Present Illness History of Present Illness Chief Complaint: Chills, fatigue, generalized weakness Narrative: 83-year-old male former smoker with history of PAD s/p bilateral iliofemoral stents, and severe cervical and lumbar spinal DJD status post multiple spinal surgeries including his most recent cervical laminectomy of C1-C2 performed at [facility] April 11 of this year. He was discharged to rehab and came home on May 31. who has a history of urinary retention presents emergency department with history of generalized fatigue and weakness and multiple falls at home. Onset of generalized fatigue weakness since yesterday he noticed this when he went to physical therapy and did not feel right. Last night he had increased urinary frequency voiding every couple hours and he fell getting into bed last night and fell again today. Evaluation in the ED revealed him to have UTI w/ sepsis w/ hypotension refractory to iv fluids and requiring norepinephrine drip. Routine labs emergency department clued CBC, coag profile, VBG, serial troponin I levels, CMP, procalcitonin, TSH as well as CT scans included imaging of his head and cervical spine as well as CT of the chest abdomen pelvis. CT of the head noncontrast showed no acute intracranial findings. Multilevel fusion hardware is seen throughout the cervical spine with no obvious fracture or hardware dislodgment. No evidence of cervical spine fracture or malalignment RICU compromise of the cervical spinal canal. CT of the chest and abdomen showed nondilated descending thoracic aorta dissection but he has atherosclerotic abdominal aorta iliac arteries but not occluded left iliac artery stent. No ischemic bowel no ascites. Incidental findings of 3.8 x 2 cm 3.5 cm mass possible abscess involving the left kidney. Urine was remarkable for moderate amount of blood moderate leukocyte Estrace, moderate bacteria. CBC showed no leukocytosis white count 6000 with no left shift. However, procalcitonin was elevated at 0.8. He is anemic hemoglobin is 8.4 g. Chemistry panel showed elevated BUN 28 creatinine 1.3 otherwise normal electrolytes except for magnesium of 1.6 which was treated w/ iv bolus x 1 gm. Troponin I levels were elevated at 74 and 62. Review of Systems Constitutional Constitutional: Reports body ache(s), Reports chills, Reports fever(s) and Reports frequent falls Cardiovascular Cardiovascular: Reports system reviewed and no additional complaints, except as documented Respiratory Respiratory: Reports system reviewed and no additional complaints, except as documented Gastrointestinal Gastrointestinal: Reports system reviewed and no additional complaints, except as documented Genitourinary Genitourinary: Reports urinary frequency, Reports urinary hesitancy and Reports urinary urgency Musculoskeletal Musculoskeletal: Reports as per HPI Integumentary/Breasts Skin/Breast: Reports system reviewed and no additional complaints, except as documented Neurologic Neurologic: Reports frequent falls and Reports paresthesias Endocrine Endocrine: Reports system reviewed and no additional complaints, except as documented Hematologic/Lymphatic Hematologic/Lymphatic: Reports system reviewed and no additional complaints, except as documented Allergic/Immunologic Allergic/Immunologic: Reports system reviewed and no additional complaints, except as documented PFSH All Active Problems (Updated 07/04/23 @ 19:41 by Wil Gutierrez MD) DVT prophylaxis (Acute) DNR no code (do not resuscitate) (Chronic) Sepsis (Acute) Hypomagnesemia (Acute) Anemia (Chronic) Acute non-ST elevation myocardial infarction (NSTEMI) (Acute) MANJU (acute kidney injury) (Acute) Acute UTI (urinary tract infection) (Acute) History of prostate cancer (Acute) Leg muscle spasm (Acute) Low blood pressure (Acute) Weakness (Chronic) Diverticulosis (Chronic) Wrist pain, left (Acute) ? carpal tunnel ? 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 doesn't remember which leg) Family History Mother , 91 Stroke Father , 71 Heart disease Stroke Brother Heart disease Maternal Grandfather , 71 No problems noted. Paternal Grandfather , 36 No problems noted. Maternal Grandmother , 91 No problems noted. Paternal Grandmother , 68 Diabetes Heart disease Son No problems noted. Son , 39 Heart disease Daughter No problems noted. Social History Smoking/Tobacco Use Status: Former Tobacco Use tobacco type: cigarettes Quit Date: 08/26/05 Tobacco: How many years used: 40 Quit status: quit date established Second Hand Exposure: Yes Smoking risk assessment performed?: Yes Alcohol Intake: current Alcohol Intake frequency: a few times a week Alcohol type: beer, wine and hard liquor Substance use type: does not use Caregiver/Support person: No Household members: spouse Housing: house Communication Needs: Hard of Hearing Do you need help understanding health information?: Rarely Pets and animals: Yes Pets and animals: cat(s), dog(s) and horse(s) Sexually active: No Do you think of yourself as: straight/heterosexual Current gender identity: male What is your relationship status?: How often do you talk on the phone with friends or family?: three or more times per week How often do you get together with friends or relatives?: decline to answer How often do you attend mandaeism or denominational services?: decline to answer Do you belong to any clubs or organized social groups?: no Panel score (0-1 are the most socially isolated patients): 2 What type of physical activity do you participate in: bicycling Duration: < 15 minutes/day Frequency: 5-6 times per week Rufina/Jainism: none Special rufina needs: No Seatbelt use: always 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 Do you feel safe at home: Yes Do you feel safe in your relationship?: Yes Meds Allergies and Home Medications Allergies Allergy/AdvReac Type Severity Reaction Status Date / Time No Known Allergies Allergy Verified 07/04/23 13:32 Home Medications Medication Instructions Recorded Confirmed Type ascorbic acid (vitamin C) 1,000 mg 1,000 mg PO DAILY 02/12/13 07/04/23 History tablet celecoxib 200 mg capsule (Celebrex) 200 mg PO DAILY 02/12/13 07/04/23 History clopidogrel 75 mg tablet 75 mg PO DAILY 04/19/15 07/04/23 History cholecalciferol (vitamin D3) 25 400 unit PO DAILY 01/30/19 07/04/23 History mcg (1,000 unit) tablet ropinirole 0.5 mg tablet 1 mg PO QHS 01/30/19 07/04/23 History rosuvastatin 10 mg tablet (Crestor) 10 mg PO DAILY 01/30/19 07/04/23 History lidocaine 4 % topical patch 1 patch topical DAILY 05/04/20 07/04/23 History allopurinol 100 mg tablet 200 mg (2 x 100 mg) PO DAILY #180 09/12/22 07/04/23 Rx tab-caps oxycodone 5 mg tablet 5 mg PO DAILY PRN 03/20/23 07/04/23 History diazepam 5 mg tablet 2.5 - 5 mg (0.5 - 1 x 5 mg) PO QHS 06/11/23 07/04/23 Rx PRN sleep/spasm #30 tabs tamsulosin 0.4 mg capsule (Flomax) 0.4 mg PO DAILY #90 caps 06/19/23 07/04/23 Rx baclofen 10 mg tablet 10 mg PO TID #90 tabs 07/03/23 07/04/23 Rx Exam Narrative Exam Narrative: Elderly white male lying in bed in no acute distress is alert and oriented to person place time circumstance. Current systolic blood pressures in the 150s. HEENT is unremarkable Neck is nontender, no JVD, normal carotid pulses Lungs: clear Heart: regular (v paced rhythm) Abdomen: slightly distended, suprapubic area is tender, no rebound tenderness or guarding Rectal: normal tone, small amount light brown stool that was heme negative Musculoskeletal: he has contractures of the fingers of both hands but is able to open and close right hand, left hand is closed in fist, feet he has deformity of the left foot from contracture, pedal pulses present but only 1+, no cyanosis Results Labs 07/04/23 11:25 07/04/23 11:25 Labs: Laboratory Results - last 24 hr 07/04/23 07/04/23 07/04/23 11:25 11:50 12:11 WBC 6.09 RBC 2.79 L Hgb 8.4 L Hct 25.7 L MCV 92 MCH 30.1 MCHC 32.7 RDW 14.4 H Plt Count 210 MPV 9.3 Immature Gran % 0.5 Neutrophils % 61.1 Lymphocytes % 26.1 Monocytes % 9.9 Eosinophils % 2.1 Basophils % 0.3 Nucleated RBC % 0.0 Absolute Neutrophils 3.72 Absolute Lymphocytes 1.59 Absolute Monocytes 0.60 Absolute Eosinophils 0.13 Absolute Basophils 0.02 PT 12.3 H INR 1.2 H APTT 32.1 VBG pH VBG pCO2 VBG pO2 VBG HCO3 VBG Total CO2 VBG O2 Saturation VBG Base Excess VBG Lactate 0.8 Sodium 136 Cancelled Potassium 4.1 Cancelled Chloride 103 Cancelled Carbon Dioxide 23.7 Cancelled Anion Gap 9.3 Cancelled BUN 28 H Cancelled Creatinine 1.3 Cancelled Est GFR (CKD-EPI 2020) 55.19 Cancelled Glucose 109 H Cancelled Calcium 8.6 Cancelled Magnesium 1.6 L Total Bilirubin 0.4 Cancelled AST 31 Cancelled ALT 20 Cancelled Alkaline Phosphatase 50 Cancelled Troponin I 74 H* Cancelled Total Protein 6.0 L Cancelled Albumin 2.5 L Cancelled Procalcitonin TSH 1.69 Urine Color Urine Clarity Urine pH Ur Specific [place] Urine Protein Urine Ketones Urine Blood Urine Nitrite Urine Bilirubin Urine Urobilinogen Ur Leukocyte Esterase Urine RBC Urine WBC Ur Epithelial Cells Urine Crystals Urine Bacteria Urine Casts Urine Mucus Urine Other Ur Culture Indicated? Urine Glucose COVID-19 Source SARS-CoV-2 (PCR) Influenza Type A (PCR) Influenza Type B (PCR) RSV (PCR) Patient ABO/Rh A Negative Antibody Screen NEGATIVE 07/04/23 07/04/23 07/04/23 13:28 13:59 15:05 WBC RBC Hgb Hct MCV MCH MCHC RDW Plt Count MPV Immature Gran % Neutrophils % Lymphocytes % Monocytes % Eosinophils % Basophils % Nucleated RBC % Absolute Neutrophils Absolute Lymphocytes Absolute Monocytes Absolute Eosinophils Absolute Basophils PT INR APTT VBG pH 7.37 VBG pCO2 38 L VBG pO2 40 VBG HCO3 22 L VBG Total CO2 21 L VBG O2 Saturation 71 VBG Base Excess -4 L VBG Lactate 0.9 Sodium Potassium Chloride Carbon Dioxide Anion Gap BUN Creatinine Est GFR (CKD-EPI 2020) Glucose Calcium Magnesium Total Bilirubin AST ALT Alkaline Phosphatase Troponin I 62 H* Total Protein Albumin Procalcitonin 0.8 TSH Urine Color Yellow Urine Clarity Cloudy Urine pH 6.5 Ur Specific [place] 1.025 Urine Protein 100 H Urine Ketones Negative Urine Blood Moderate H Urine Nitrite Negative Urine Bilirubin Negative Urine Urobilinogen 0.2 Ur Leukocyte Esterase Moderate H Urine RBC 10-20 H Urine WBC >50 H Ur Epithelial Cells Few Urine Crystals Negative Urine Bacteria Moderate Urine Casts 0-2 Hyaline Urine Mucus Negative Urine Other Rare Renal Ur Culture Indicated? Yes Urine Glucose Negative COVID-19 Source SARS-CoV-2 (PCR) Influenza Type A (PCR) Influenza Type B (PCR) RSV (PCR) Patient ABO/Rh Antibody Screen 07/04/23 07/04/23 15:11 16:05 WBC RBC Hgb Hct MCV MCH MCHC RDW Plt Count MPV Immature Gran % Neutrophils % Lymphocytes % Monocytes % Eosinophils % Basophils % Nucleated RBC % Absolute Neutrophils Absolute Lymphocytes Absolute Monocytes Absolute Eosinophils Absolute Basophils PT INR APTT VBG pH VBG pCO2 VBG pO2 VBG HCO3 VBG Total CO2 VBG O2 Saturation VBG Base Excess VBG Lactate Sodium Potassium Chloride Carbon Dioxide Anion Gap BUN Creatinine Est GFR (CKD-EPI 2020) Glucose Calcium Magnesium Total Bilirubin AST ALT Alkaline Phosphatase Troponin I Cancelled Total Protein Albumin Procalcitonin TSH Urine Color Urine Clarity Urine pH Ur Specific [place] Urine Protein Urine Ketones Urine Blood Urine Nitrite Urine Bilirubin Urine Urobilinogen Ur Leukocyte Esterase Urine RBC Urine WBC Ur Epithelial Cells Urine Crystals Urine Bacteria Urine Casts Urine Mucus Urine Other Ur Culture Indicated? Urine Glucose COVID-19 Source NASOPHARYNX SARS-CoV-2 (PCR) Negative Influenza Type A (PCR) Negative Influenza Type B (PCR) Negative RSV (PCR) Negative Patient ABO/Rh Antibody Screen Last Vital Signs Temp 37.2 C 07/04/23 11:18 Pulse 64 07/04/23 16:46 Resp 16 07/04/23 16:50 BP 164/47 H 07/04/23 16:46 Pulse Ox 95 07/04/23 16:50 PAWSS Have you Been Recently Intoxicated or Drunk Within the Last 30 days?: No Have you Ever Experienced Previous Episodes of Alcohol Withdrawal?: No Have you ever Experienced Withdrawal Seizures?: No Have you ever Experienced Delirium Tremens(DT)s?: No Have you ever undergone Alcohol Rehabilitation Treatment (i.e, inpt ot outpatient treatment programs)?: No Have you ever Experienced Blackouts?: No Have you ever Combined Alcohol with other Downers within the last 90 days?: No Have you ever Combined Alcohol with any other Substance of Abuse during the last 90 days?: No Positive Blood Alcohol level on Presentation? [PCS.BAL]: No Evidence of Increased Autonomic Activity (i.e. HR>120, tremor, sweating, agitation, nausea)?: No Result: 0 Time Spent Time spent with Patient: 55-74 minutes Time was spent: preparing to see the patient(eg.review tests), obtaining and/or reviewing separately otained hiistory, ordering medications,tests, procedures, referring, communicating with other health spiritual care coordinator, indepentently interpreting results, counseling the patient and care coordination
[2023-07-04 18:43] LABS: Troponin I 55 ng/L (<or=60)
[2023-07-04] MEDS: HYDROmorphone 2 MG/ML SYR ×2 (19:13→19:19)
[2023-07-04] MEDS: Normal Saline Flush 10 ML SYR IVP (19:20)
[2023-07-04] MEDS: oxyCODONE 5 MG TAB PO (20:25)
[2023-07-04] MEDS: Baclofen 10 MG TAB PO (20:25)
[2023-07-04] MEDS: Enoxaparin 40 MG/0.4 ML SYR SC (20:25)
[2023-07-04] MEDS: Acetaminophen 500 MG TAB 1000 MG PO (20:35)
[2023-07-04] MEDS: Lactated Ringers 1,000 ML 100 ML IV (20:55)
[2023-07-04] MEDS: rOPINIRole 1 MG TAB (22:23)
[2023-07-04] MEDS: Famotidine 20 MG TAB PO (22:23)
[2023-07-04] MEDS: diazePAM 5 MG TAB PO (22:27)
[2023-07-04] MEDS: Tamsulosin 0.4 MG CAPCR PO (22:30)
[2023-07-04] MEDS: rOPINIRole 0.5 MG TAB 1 MG PO (22:42)
[2023-07-04] MEDS: Lidocaine 2% Jelly 6 ML SYR (22:43)
[2023-07-05] VITALS (181 sets, daily range): BP systolic 67–163; BP diastolic 38–97; PULSE 59–112; RESP 9–33; TEMP 37.2–39.9; O2SAT 85–98
[2023-07-05] MEDS: Normal Saline Flush 10 ML SYR IVP (00:04)
[2023-07-05 00:20] LABS: Bilirubin Negative (Negative); Blood Moderate (Negative); Clarity Sl Cloudy (Clear); Glucose Negative (Negative); Ketones 15 mg/dL (Negative); Leukocyte Esterase Moderate (Negative); Nitrite Negative (Negative); Urobilinogen 0.2 mg/dL (Up to 0.2)
[2023-07-05 00:24] LABS: C & S Indicated? Yes; WBC >50 HPF (0-5)
[2023-07-05] MEDS: oxyCODONE 5 MG TAB PO ×4 (04:36→21:51)
[2023-07-05] MEDS: Water,Injection,Sterile 10 ML VIAL (04:50)
[2023-07-05 05:16] LABS: Abs Immature Grans 0.02 10^3/uL (0.0-0.06); Absolute Basophil Count 0.01 10^3/uL (0.0-0.2); Absolute Eosinophil Count 0.04 10^3/uL (0.0-0.7); Absolute Lymphocyte Count 3.28 10^3/uL (1.2-3.4); Absolute Neutrophil Count 3.73 10^3/uL (1.2-6.7); Basophils % 0.1; Eosinophils % 0.5; HCT 32.3 % (40.0-50.0); HGB 10.2 g/dL (13.5-17.5); Immature Grans % 0.3; Lymphocytes % 43.3; MCHC 31.6 % (32.0-36.0); MCV 95 fL (80-95); Monocytes % 6.6; Neutrophils % 49.2; Platelet Count 226 10^3/uL (130-400); RDW 14.3 % (11.8-14.1); RDW-SD 49.2 fL; WBC 7.58 10^3/uL (4.4-10.8)
[2023-07-05 05:35] LABS: Magnesium 2.1 mg/dL (1.8-2.4)
[2023-07-05 05:42] LABS: Iron 12 ug/dL (65-175); Total Iron Binding Capacity 216 ug/dL (250-450); Transferrin Sat 6 % (20-55)
[2023-07-05 05:54] LABS: ALT 29 U/L (16-63); AST 37 U/L (15-37); Albumin 3.1 g/dL (3.4-5.0); Alkaline Phosphatase 67 U/L (46-116); Anion Gap 14.6 mmol/L (3-11); BUN 23 mg/dL (7-18); Bilirubin, Total 0.4 mg/dL (0.2-1.0); CO2 21.4 mmol/L (21.0-32.0); CREATININE 1.4 mg/dL (0.70-1.30); Calcium 9.2 mg/dL (8.5-10.1); Chloride 100 mmol/L (98-107); Estimated GFR 50.49 (mL/min/1.73m2); Ferritin 327 ng/mL (26-388); Glucose 110 mg/dL (74-106); Potassium 4.6 mmol/L (3.5-5.1); Sodium 136 mmol/L (136-145); Total Protein 6.9 g/dL (6.4-8.2); Troponin I 56 ng/L (<or=60)
[2023-07-05 06:05] LABS: Vitamin B12 369 pg/mL (193-986)
[2023-07-05 06:13] LABS: Folate > 20.0 ng/mL (8.6-20.0)
--- NOTE | 2023-07-05 07:00 | DI.US_ITS ---
Exam(s) US RENAL EXAM: US RENAL CLINICAL HISTORY: urosepsis, questionable left renal abscess vs mass. TECHNIQUE: [place] scale, color and spectral Doppler were used. COMPARISON: CT CT THORAX ABD/PEL CTA from 07/04/2023 FINDINGS: Renal size in cm: Right: 10.2 left: 9.7 Echogenicity: Normal Hydronephrosis: No Cyst or mass: None visible. Nephrolithiasis: No Bladder:Lopez catheter. Prevoid vol:83 cc Postvoid vol:0 cc IMPRESSION: No renal mass or abscess is visible. DATA REPOSITORY:
[2023-07-05] MEDS: Acetaminophen 500 MG TAB 1000 MG PO ×3 (07:51→20:41)
--- NOTE | 2023-07-05 07:58 | PGE_ITS ---
Date of Service Date of service: 07/05/23 Time of Service: 09:40 Assessment and Plan Assessment and plan (1) Sepsis: Status: Acute Assessment and plan: patient was weaned off norepinephrine this moring however in the time that I have been in the ICU his BP has dropped again into the 70's requiring resumption of his norepinephrine. Intially presumed to be from urosepsis but in light of his severe low back pains and worsening function of his legs and arms I am concerned for some spinal abscess. He says that he has had MRI in the past and even done since his pacemaker implant however our DI department says that they can not do MRI w/ pacers. I will repeat his C spine and also get T spine and LS spine CT scans w/ contrast. he had c spine CT yesterday but done w/out contrast. He remains on meropenem for urosepsis however, I may need to broaden to cover Staph if he has evidence of spinal infection and if so he will need transfer to spine center. Critical care time spent interviewing and examining the patient, reviewing studies, discussing case with patient's nurse and consulting physicians was 60 minutes Qualifiers: Sepsis type: sepsis due to unspecified organism Sepsis acute organ dysfunction status: with acute organ dysfunction Severe sepsis acute organ dysfunction type: acute renal failure Acute renal failure type: unspecified Severe sepsis shock status: with septic shock Qualified Code(s): A41.9 - Sepsis, unspecified organism; R65.21 - Severe sepsis with septic shock; N17.9 - Acute kidney failure, unspecified (2) Acute low back pain: Status: Acute Assessment and plan: continue muscle relaxants, oxycodone and prn parenteral dilaudid, avoid NSAID in setting of MANJU Qualifiers: Back pain laterality: midline Sciatica presence: with sciatica Sciatica laterality: bilateral sciatica Qualified Code(s): M54.42 - Lumbago with sciatica, left side; M54.41 - Lumbago with sciatica, right side (3) Renal abscess, left: Status: Suspected Assessment and plan: questionable renal mass vs abscess per CT readings. obtain renal US; unfortunately no urology was available today (4) Acute UTI (urinary tract infection): Status: Acute Assessment and plan: continue meropenem; await blood and urine cultures (5) Elevated troponin I level: Status: Acute Assessment and plan: transient mild troponin I leak probably d/t type II demand ischemia from his hypotension. this has since resolved (6) Hypomagnesemia: Status: Acute Assessment and plan: repleted, repeat level 2.1; monitor and replace prn (7) MANJU (acute kidney injury): Status: Acute Assessment and plan: he has good urine ouput overnight. creatinine 1.4 and BUN 24, monitor, avoid nephrotoxins, although will give contrast for CT as we need to rule out abscess (8) Peripheral arterial occlusive disease: Assessment and plan: s/p bilateral iliofemoral stents, remains on Plavix chronically. aspirin was a dded per ED discussion w/ [facility] cardiology. I have kept the aspirin but feel that his troponin leak was d/t hypotension and sepsis. However he may have occult CAD given his hx of PAD. I asked him about any heart cath during his workup in [place] in 1999 when his pacer was placed and he does not recall any coronary catheterization. (9) Anemia: Status: Chronic Assessment and plan: prior remote hx of iron deficiency anemia but patient denies any recent hx of anemia. he denies any melena or hematochezia. I will put him on PPI and obtain anemia workup in the morning. Stool was negative for occult blood per rectal exam on admission exam (10) DNR no code (do not resuscitate): Status: Chronic Assessment and plan: DNR/DNI per my discussion w/ the patient (11) DVT prophylaxis: Status: Acute Assessment and plan: enoxaparin SC Subjective Subjective Interval history since last seen: Patient states that his low back pain persists but is less severe compared to last night and he has pain going down both legs. He has hx of LS fusion. Imaging w/ CT of his cervical spine was done on admission but no imaging of his thoracic or lumbar spine. Given he presented w/ septic picture, likely d/t UTI however w/ worsening lower back pains, I think MRI imaging of his spine is indicated to rule out spinal abscess. Exam Narrative Exam Narrative: Rafael is alert and oriented, he appears relatively comfortable Lungs: clear Heart: RRR (rhythm electronically V paced) Abdomen: soft, nontender Back: tender over LS in midline Patient unable to raise his legs off the bed, arms are also weaker, he is able to hold his arms up against gravity but not able to open his hands and hold any instruments to feed himself this morning. Patient states that 2 days ago he was ambulating w/ use of walker albeit only 10 to 20 ft w/ assistance of his Objective Last Vital Signs Temp 37.6 C H 07/05/23 04:10 Pulse 93 H 07/05/23 07:48 Resp 20 07/05/23 07:50 BP 128/66 07/05/23 07:48 Pulse Ox 91 L 07/05/23 07:50 Laboratory Results - last 24 hr 07/04/23 07/04/23 07/04/23 11:25 11:50 12:11 WBC 6.09 RBC 2.79 L Hgb 8.4 L Hct 25.7 L MCV 92 MCH 30.1 MCHC 32.7 RDW 14.4 H Plt Count 210 MPV 9.3 Immature Gran % 0.5 Neutrophils % 61.1 Lymphocytes % 26.1 Monocytes % 9.9 Eosinophils % 2.1 Basophils % 0.3 Nucleated RBC % 0.0 Absolute Neutrophils 3.72 Absolute Lymphocytes 1.59 Absolute Monocytes 0.60 Absolute Eosinophils 0.13 Absolute Basophils 0.02 PT 12.3 H INR 1.2 H APTT 32.1 VBG pH VBG pCO2 VBG pO2 VBG HCO3 VBG Total CO2 VBG O2 Saturation VBG Base Excess VBG Lactate 0.8 Sodium 136 Cancelled Potassium 4.1 Cancelled Chloride 103 Cancelled Carbon Dioxide 23.7 Cancelled Anion Gap 9.3 Cancelled BUN 28 H Cancelled Creatinine 1.3 Cancelled Est GFR (CKD-EPI 2020) 55.19 Cancelled Glucose 109 H Cancelled Calcium 8.6 Cancelled Magnesium 1.6 L Iron TIBC Transferrin % Sat Ferritin Total Bilirubin 0.4 Cancelled AST 31 Cancelled ALT 20 Cancelled Alkaline Phosphatase 50 Cancelled Troponin I 74 H* Cancelled Total Protein 6.0 L Cancelled Albumin 2.5 L Cancelled Vitamin B12 Folate Procalcitonin TSH 1.69 Urine Color Urine Clarity Urine pH Ur Specific [place] Urine Protein Urine Ketones Urine Blood Urine Nitrite Urine Bilirubin Urine Urobilinogen Ur Leukocyte Esterase Urine RBC Urine WBC Ur Epithelial Cells Urine Crystals Urine Bacteria Urine Casts Urine Mucus Urine Other Ur Culture Indicated? Urine Glucose COVID-19 Source SARS-CoV-2 (PCR) Influenza Type A (PCR) Influenza Type B (PCR) RSV (PCR) Patient ABO/Rh A Negative Antibody Screen NEGATIVE 07/04/23 07/04/23 07/04/23 13:28 13:59 15:05 WBC RBC Hgb Hct MCV MCH MCHC RDW Plt Count MPV Immature Gran % Neutrophils % Lymphocytes % Monocytes % Eosinophils % Basophils % Nucleated RBC % Absolute Neutrophils Absolute Lymphocytes Absolute Monocytes Absolute Eosinophils Absolute Basophils PT INR APTT VBG pH 7.37 VBG pCO2 38 L VBG pO2 40 VBG HCO3 22 L VBG Total CO2 21 L VBG O2 Saturation 71 VBG Base Excess -4 L VBG Lactate 0.9 Sodium Potassium Chloride Carbon Dioxide Anion Gap BUN Creatinine Est GFR (CKD-EPI 2020) Glucose Calcium Magnesium Iron TIBC Transferrin % Sat Ferritin Total Bilirubin AST ALT Alkaline Phosphatase Troponin I 62 H* Total Protein Albumin Vitamin B12 Folate Procalcitonin 0.8 TSH Urine Color Yellow Urine Clarity Cloudy Urine pH 6.5 Ur Specific [place] 1.025 Urine Protein 100 H Urine Ketones Negative Urine Blood Moderate H Urine Nitrite Negative Urine Bilirubin Negative Urine Urobilinogen 0.2 Ur Leukocyte Esterase Moderate H Urine RBC 10-20 H Urine WBC >50 H Ur Epithelial Cells Few Urine Crystals Negative Urine Bacteria Moderate Urine Casts 0-2 Hyaline Urine Mucus Negative Urine Other Rare Renal Ur Culture Indicated? Yes Urine Glucose Negative COVID-19 Source SARS-CoV-2 (PCR) Influenza Type A (PCR) Influenza Type B (PCR) RSV (PCR) Patient ABO/Rh Antibody Screen 07/04/23 07/04/23 07/04/23 15:11 16:05 18:17 WBC RBC Hgb Hct MCV MCH MCHC RDW Plt Count MPV Immature Gran % Neutrophils % Lymphocytes % Monocytes % Eosinophils % Basophils % Nucleated RBC % Absolute Neutrophils Absolute Lymphocytes Absolute Monocytes Absolute Eosinophils Absolute Basophils PT INR APTT VBG pH VBG pCO2 VBG pO2 VBG HCO3 VBG Total CO2 VBG O2 Saturation VBG Base Excess VBG Lactate Sodium Potassium Chloride Carbon Dioxide Anion Gap BUN Creatinine Est GFR (CKD-EPI 2020) Glucose Calcium Magnesium Iron TIBC Transferrin % Sat Ferritin Total Bilirubin AST ALT Alkaline Phosphatase Troponin I Cancelled 55 Total Protein Albumin Vitamin B12 Folate Procalcitonin TSH Urine Color Urine Clarity Urine pH Ur Specific [place] Urine Protein Urine Ketones Urine Blood Urine Nitrite Urine Bilirubin Urine Urobilinogen Ur Leukocyte Esterase Urine RBC Urine WBC Ur Epithelial Cells Urine Crystals Urine Bacteria Urine Casts Urine Mucus Urine Other Ur Culture Indicated? Urine Glucose COVID-19 Source NASOPHARYNX SARS-CoV-2 (PCR) Negative Influenza Type A (PCR) Negative Influenza Type B (PCR) Negative RSV (PCR) Negative Patient ABO/Rh Antibody Screen 07/05/23 07/05/23 00:10 05:00 WBC 7.58 RBC 3.40 L Hgb 10.2 L Hct 32.3 L MCV 95 MCH 30.0 MCHC 31.6 L RDW 14.3 H Plt Count 226 MPV 10.0 Immature Gran % 0.3 Neutrophils % 49.2 Lymphocytes % 43.3 Monocytes % 6.6 Eosinophils % 0.5 Basophils % 0.1 Nucleated RBC % 0.0 Absolute Neutrophils 3.73 Absolute Lymphocytes 3.28 Absolute Monocytes 0.50 Absolute Eosinophils 0.04 Absolute Basophils 0.01 PT INR APTT VBG pH VBG pCO2 VBG pO2 VBG HCO3 VBG Total CO2 VBG O2 Saturation VBG Base Excess VBG Lactate Sodium 136 Potassium 4.6 Chloride 100 Carbon Dioxide 21.4 Anion Gap 14.6 H BUN 23 H Creatinine 1.4 H Est GFR (CKD-EPI 2020) 50.49 Glucose 110 H Calcium 9.2 Magnesium 2.1 Iron 12 L TIBC 216 L Transferrin % Sat 6 L Ferritin 327 Total Bilirubin 0.4 AST 37 ALT 29 Alkaline Phosphatase 67 Troponin I 56 Total Protein 6.9 Albumin 3.1 L Vitamin B12 369 Folate > 20.0 H Procalcitonin TSH Urine Color Yellow Urine Clarity Sl Cloudy Urine pH 6.0 Ur Specific [place] 1.020 Urine Protein 100 H Urine Ketones 15 H Urine Blood Moderate H Urine Nitrite Negative Urine Bilirubin Negative Urine Urobilinogen 0.2 Ur Leukocyte Esterase Moderate H Urine RBC Not Applicable Urine WBC >50 H Ur Epithelial Cells Not Applicable Urine Crystals Not Applicable Urine Bacteria Not Applicable Urine Casts Urine Mucus Not Applicable Urine Other Ur Culture Indicated? Yes Urine Glucose Negative COVID-19 Source SARS-CoV-2 (PCR) Influenza Type A (PCR) Influenza Type B (PCR) RSV (PCR) Patient ABO/Rh Antibody Screen PAWSS Have you Been Recently Intoxicated or Drunk Within the Last 30 days?: No Have you Ever Experienced Previous Episodes of Alcohol Withdrawal?: No Have you ever Experienced Withdrawal Seizures?: No Have you ever Experienced Delirium Tremens(DT)s?: No Have you ever undergone Alcohol Rehabilitation Treatment (i.e, inpt ot outpatient treatment programs)?: No Have you ever Experienced Blackouts?: No Have you ever Combined Alcohol with other Downers within the last 90 days?: No Have you ever Combined Alcohol with any other Substance of Abuse during the last 90 days?: No Positive Blood Alcohol level on Presentation? [PCS.BAL]: No Evidence of Increased Autonomic Activity (i.e. HR>120, tremor, sweating, agitation, nausea)?: No Result: 0 Time Spent with Patient Time Spent with Patient: >50 minutes Time was spent: preparing to see the patient(eg.review tests), obtaining and/or reviewing separately otained hiistory, ordering medications,tests, procedures, referring, communicating with other health vision care associate, indepentently interpreting results, counseling the patient and care coordination
--- NOTE | 2023-07-05 07:58 | NUR.NOTE ---
0400-patient awoken for assessment and to be turned. Assessment mostly the same as at midnight but when turned to supine, patient began to complain of severe pain in his legs. Asked to have his legs straightened but no relief from that. Medicated with 2 po oxycodone with pt getting relief but which took a while. MD to be asked to have something regularly scheduled throughout the night.
[2023-07-05] MEDS: Allopurinol 100 MG TAB 200 MG PO (08:40)
[2023-07-05] MEDS: Clopidogrel 75 MG TAB PO (08:41)
[2023-07-05] MEDS: Cholecalciferol (Vitamin D3) 1,000 UNIT TAB 400 UNITS PO (08:41)
[2023-07-05] MEDS: Baclofen 10 MG TAB PO ×3 (08:41→20:41)
[2023-07-05] MEDS: Ascorbic Acid 500 MG TAB 1000 MG PO (08:41)
[2023-07-05] MEDS: Famotidine 20 MG TAB PO ×2 (08:42→20:41)
[2023-07-05] MEDS: Lidocaine 5% Patch 1 PATCH TD (08:42)
[2023-07-05] MEDS: Rosuvastatin 10 MG TAB PO (08:42)
[2023-07-05] MEDS: Lactated Ringers 1,000 ML 150 ML IV (09:25)
--- NOTE | 2023-07-05 09:49 | NUR.NOTE ---
Lopez is clamped in anticipation of bladder scan at 10:30 a.m.Nursing Note:
--- NOTE | 2023-07-05 10:10 | PDOC.CMIN ---
Date of service: 07/05/23 Time of Service: 10:10 Care Management Initial Assmt Initial Assessment REASON FOR HOSPITALIZATION:: sepsis PREVIOUS FUNCTIONAL STATUS/SOCIAL/FAMILY SUPPORTS:: Rafael lives in a single family home in [place] with his Inessa. They do not have any children but do have 2 dogs. Fab and Inessa also have a home in [place] and they spend about 1/2 of their time in each home. Rafael is alert and oriented but has head significant health and mobility issues for the past 3 months or so. He has had spinal fusion surgery and spent several weeks at an acute rehab ([facility]) in [place], [place]. Fab uses a walker and a wheelchair and requires assistance with ADLs which his provides. CURRENT FUNCTIONAL STATUS:: Rafael was sitting up in bed visiting with his when CM met with him. He was polite and agreeable to conversation but not overly talkative. His Inessa participated in the conversation and answered many questions. Inessa shared that Fab had been doing well at home until a few days ago. He was becoming more independent and was able to feed himself . He has been walking with a walker with Inessa following with a wheelchair. Fab is again in a weakened condition and Inessa stated that he will need to be able to transfer with her from bed to chair to bathroom if she is to take him home. Different options for post-discharge care were discussed but, as Fab remains ICU level of care, further discussions will take place closer to discharge. ADVANCE DIRECTIVES:: on file. Inessa Sarabia [facility] Has patient been provided with info about the portal/API?: Yes Did the patient sign up for the portal?: No CODE STATUS:: DNR/DNI INSURANCE COVERAGE / FINANCIAL ISSUES:: [employer] Medicare Replacement CURRENT HOME/COMMUNITY SERVICES/EQUIPMENT:: walker and wheelchair, modified eating utensils PRIMARY CARE PHYSICIAN:: Justin Leal POTENTIAL DISCHARGE NEEDS:: follow up with PCP and plan of care PATIENT/FAMILY EDUCATION NEEDS:: review of discharge instructions, limitations, follow up plan, discuss Ask Me Three TRANSPORTATION:: via private vehicle with family PLAN:: Anticipate Fab will be discharged home when medically cleared. He may benefit from a short rehab stay if his weakness does not resolve or additional services at home. He will follow up with community providers and plan of care and transport with family. CM will continue to support Fab and his discharge planning needs. PFSH All Active Problems (Updated 07/05/23 @ 09:37 by Wil Gutierrez MD) Elevated troponin I level (Acute) Acute low back pain (Acute) DVT prophylaxis (Acute) DNR no code (do not resuscitate) (Chronic) Sepsis (Acute) Hypomagnesemia (Acute) Anemia (Chronic) Acute non-ST elevation myocardial infarction (NSTEMI) (Acute) MANJU (acute kidney injury) (Acute) Acute UTI (urinary tract infection) (Acute) History of prostate cancer (Acute) Leg muscle spasm (Acute) Low blood pressure (Acute) Weakness (Chronic) Diverticulosis (Chronic) Wrist pain, left (Acute) ? carpal tunnel ? 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 doesn't remember which leg) Family History Mother , 91 Stroke Father , 71 Heart disease Stroke Brother Heart disease Maternal Grandfather , 71 No problems noted. Paternal Grandfather , 36 No problems noted. Maternal Grandmother , 91 No problems noted. Paternal Grandmother , 68 Diabetes Heart disease Son No problems noted. Son , 39 Heart disease Daughter No problems noted. Social History Smoking/Tobacco Use Status: Former Tobacco Use tobacco type: cigarettes Quit Date: 08/26/05 Tobacco: How many years used: 40 Quit status: quit date established Second Hand Exposure: Yes Smoking risk assessment performed?: Yes Alcohol Intake: current Alcohol Intake frequency: a few times a week Alcohol type: beer, wine and hard liquor Substance use type: does not use Caregiver/Support person: No Household members: spouse Housing: house Communication Needs: Hard of Hearing Do you need help understanding health information?: Rarely Pets and animals: Yes Pets and animals: cat(s), dog(s) and horse(s) Sexually active: No Do you think of yourself as: straight/heterosexual Current gender identity: male What is your relationship status?: How often do you talk on the phone with friends or family?: three or more times per week How often do you get together with friends or relatives?: decline to answer How often do you attend amish or restorationist services?: decline to answer Do you belong to any clubs or organized social groups?: no Panel score (0-1 are the most socially isolated patients): 2 What type of physical activity do you participate in: bicycling Duration: < 15 minutes/day Frequency: 5-6 times per week Rufina/Jainism: none Special rufina needs: No Seatbelt use: always Drive intox or ride w/intox truck driver teamster: No Do you feel safe at home: Yes Do you feel safe in your relationship?: Yes
--- NOTE | 2023-07-05 13:45 | DI.US_ITS ---
APPROVED REPORT EXAM: Comprehensive 2D, Doppler, and color-flow Echocardiogram Patient Location: In-Patient Room/Bed: KNS526 Cutter Barrel Drum: Juana Jeffrey RDCS (AE) Indications: Elevated troponin, Evaluate LV and RV Other Information Study Quality: Fair. Technically limited study due to body habitus, inability to position patient exa m done supine bedside. Conclusion Normal left ventricular wall thickness and chamber size. Ejection fraction is 50 to 55%. There are no segmental wall motion abnormalities Normal right ventricular size and systolic function Left atrium is mildly dilated. Right atrial size is normal Device lead noted in the right heart Aortic valve is sclerotic and trileaflet without stenosis or regurgitation Mitral annular calcification, mild mitral regurgitation Normal tricuspid valve with mild regurgitation. Estimated right ventricular systolic pressure is 37 mmHg Wall motion Left Ventricle The left ventricle is normal size. Left ventricular systolic function is borderline There is normal l eft ventricular wall thickness. There are no segmental wall motion abnormalities There is no ventricu lar septal defect visualized. LVEF is 50-55%. Right Ventricle Right ventricle is grossly normal in size. Right ventricular systolic function is grossly normal. Pac emaker lead is present in the right ventricle. Atria Left atrium is mildly dilated. The right atrium size is normal. The interatrial septum is intact wit h no evidence for an atrial septal defect. Aortic Valve The Aortic valve is sclerotic. Aortic valve is trileaflet. There is no aortic valvular stenosis. Mitral Valve Moderate mitral annular calcification. No evidence of mitral valve stenosis. Mild mitral regurgitatio n. Tricuspid Valve The tricuspid valve is normal in structure. There is no tricuspid valve stenosis. Mild tricuspid regu rgitation. The RVSP is 36.8 mmHg. Pulmonic Valve The pulmonary valve is normal in structure. There is no pulmonic valvular stenosis. Trace pulmonic re gurgitation. Great Vessels The aortic root is normal in size. The ascending aorta is mildly dilated. Aortic arch is not well vis ualized. IVC is normal in size and collapses >50% with inspiration. Pericardium There is no pericardial effusion. 2D Dimensions IVSD d PLAX 0.81 cm M: 0.6-1.2 Ao Root d 3.13 cm M: 3.1 - 3.7 LVPW d PLAX 0.78 cm M: 0.6 - 1.2 Ao Asc Diam d 3.54 cm M: 2.6 - 3.4 LVID d PLAX 4.97 cm M: 4.2 - 5.8 LVDs 3.72 cm M: 2.5 - 4.0 LV EF Teichholz 49.6 % FS 25.23 % LV EDV (Teich) 116.7 mL LV ESV (Teich) 58.8 mL M-Mode TAPSE 2.44 cm (M/F) >1.7 Auto EF LV EDV A4C 99.5 mL LV EDV A2C 133.9 mL LV EDV BP 116.3 mL LV ESV A4C 49.8 mL LV ESV A2C 67.1 mL LV ESV BP 58.6 mL LVEF(%) A4C 50.0 % LVEF(%) A2C 49.9 % LVEF(%) BP 49.6 % LV SV A4C 49.7 ml LV SV A2C 66.8 ml LV SV BP 57.7 ml LV CO A4C 3.0 L/min LV CO A2C 4.0 L/min LV CO BP 3.5 L/min HR A4C 60.10 BPM HR A2C 60.10 BPM LV EDV Index (BP) LA Volume LA Length A4C 7.1 cm LA Length A2C 6.0 cm LA Area A4C s 26.39 cm2 LA Area A2C s 19.13 cm2 LA Vol A4C A-L 83.31 mL LA Vol A2C A-L 52.06 mL LA Vol Biplane A-L 71.8 mL LA Vol/BSA A4C A-L LA Vol/BSA A2C A-L LA Vol/BSA BP A-L 38.8 mL/m2 LA Vol A4C MOD 79.8 mL LA Vol A2C MOD 47.9 mL LA Vol BP MOD 67.2 mL RA Volume RA Area A4C RA ESV A4C (A-L) 70.3mL RA Vol/BSA A4C A-L RA Length A4C RA ESV A4C (MOD) 64.7mL LV Diastology MV E' medial 0.088 (>0.07 m/s) MV E Vmax 0.95 (0.4-1.3 m/s) MV E/E' MED 10.85 (<14) MV A Vmax 1.15 (0.4-1.3 m/s) E/A Ratio 0.8 Aortic Valve AoV Vmax 1.72 m/s LVOT Vmax 1.26 m/s AoV Peak Grad 11.8 mmHg LVOT Peak Grad 6.3 mmHg AoV Area (Vmax) 2.30 cm2 LVOT VTI 0.268 m AoV VTI 0.356 m LVOT Mean Grad 3.7 mmHg AoV Mean Elmo. 1.14 m/s LVOT SV 84.60 mL AoV Mean Grad 6.1 mmHg LVOT Diam s 2.00 cm AoV Area (VTI) 2.38 cm2 Velocity Ratio 0.73 Mitral Valve MV DT 284 (160-240 msec) MV Vmax TIPS 1.25 m/s MV Mean Grad 2.6 (<2mmHg) MV VTI 0.503 m Pulmonary Valve PV Vmax 0.89 (0.5-1.5 m/s) RVOT Vmax 0.62 m/s PV Peak Grad 3.2 mmHg RVOT Peak Gr. 1.5 mmHg PV Mean Elmo 0.63 m/s RVOT VTI 0.146 m PV Mean Grad 1.9 mmHg RVOT Mean Gr. 0.9 mmHg Tricuspid Valve RA Pressure 3.00 mmHg TR Vmax 2.91 m/s TV S' 0.12 m/s TR Peak Grad 33.8 mmHg RVSP (TR) 36.8 mmHg
--- NOTE | 2023-07-05 13:51 | NUR.NOTE ---
foreign exchange services manager meets with patient. After the conclusion of said meeting, echocardiogram is commenced.Nursing Note:
[2023-07-05] MEDS: Omnipaque 350 MG/ML 100 ML BTL IJ (15:56)
[2023-07-05] MEDS: Normal Saline - Diluent 50 ML VIAL IJ (16:02)
--- NOTE | 2023-07-05 16:03 | DI.CT_ITS ---
Exam(s) CT LUMBAR SPINE W EXAM: CT LUMBAR SPINE W CLINICAL HISTORY: back pain, sepsis. TECHNIQUE: Imaging Protocol: Axial computed tomography images with coronal and sagittal reformatted images were created and reviewed COMPARISON: CT CT THORAX ABD/PEL CTA from 07/04/2023 FINDINGS: Incidentally noted is a new significant area of infiltrate in the posterior segment of the right uppe r lobe which was not evident on yesterday's chest CT scan. Calcified right-sided pleural plaques aga in noted. No significant mucous in the trachea and mainstem bronchi. Bones: No evidence of fractures in the lumbar vertebrae. Advanced chronic disc space narrowing at L 4-5 and L5-S1 levels noted. Mild degenerative anterolisthesis L4 upon L5 related to facet arthropath y. There are no pars defects.. There are no lytic osseous lesions evident. Lopez catheter noted in the urinary bladder. No abnormal fluid collections evident in the pelvis. E xtensive sigmoid diverticulosis without evidence of obvious acute diverticulitis. IMPRESSION: 1. In the peripheral aspect of the field of view there is significant new infiltrate in the posterior segment of the right upper lobe which was not evident on yesterday's chest CT scan. 2. Multilevel lumbar degenerative disc disease and degenerative changes. No evidence of abnormal flu id collection nor osteomyelitis in the lumbosacral spinal column. 3. Sigmoid diverticulosis without evidence of obvious acute diverticulitis. RADIATION DOSE DELIVERED: Total DLP DATA REPOSITORY: All CT scans at this facility are submitted to the National Radiology Data Registry (NRDR) Dose Index Registry (DIR) with the [employer] ([employer]). RADIATION OPTIMIZATION: All CT scans at this facility use at least one of these dose optimization te chniques: automated exposure control; mA and/or kV adjustment per patient size (includes targeted exa ms where dose is matched to clinical indication); or iterative reconstruction.
--- NOTE | 2023-07-05 16:04 | DI.CT_ITS ---
Exam(s) CT THORACIC SPINE W EXAM: CT THORACIC SPINE W CLINICAL HISTORY: back pain, sepsis. TECHNIQUE: Imaging Protocol: Axial computed tomography images with coronal and sagittal reformatted images were created and reviewed. CONTRAST MATERIAL: Intravenous: Omnipaque 350 Contrast volume:structured data in ml Contrast route:I V - Oral: yes / no COMPARISON: CT CT LUMBAR SPINE W from 07/05/2023 FINDINGS: Bones: The extensive cervical fusion hardware extends down to the T 3 level. There is no evidence of fracture. No evidence of osteomyelitis. No abnormal fluid collection in the thoracic spinal column region. Soft tissues: No large disk herniations are identified. Other significant: There is a significant infiltrate in the posterior segment of the right upper lobe which is a new finding, not evident on yesterday's chest CT scan. IMPRESSION: The main finding here is new infiltrate in the right upper lobe posterior segment which was not prese nt on chest CT scan performed yesterday No acute osseous findings. RADIATION DOSE DELIVERED: Total DLP DATA REPOSITORY: All CT scans at this facility are submitted to the National Radiology Data Registry (NRDR) Dose Index Registry (DIR) with the [employer] (ACR). RADIATION OPTIMIZATION: All CT scans at this facility use at least one of these dose optimization te chniques: automated exposure control; mA and/or kV adjustment per patient size (includes targeted exa ms where dose is matched to clinical indication); or iterative reconstruction.
--- NOTE | 2023-07-05 16:05 | DI.CT_ITS ---
Exam(s) CT CERVICAL SPINE W EXAM: CT CERVICAL SPINE W CLINICAL HISTORY: back, neck pain, sepsis r/o abscess. TECHNIQUE: Imaging Protocol: Axial computed tomography images with coronal and sagittal reformatted images were created and reviewed COMPARISON: CT cervical spine performed 07/04/[address] THORACIC SPINE W from 07/05/[address] LUMBAR SPINE W from 07/05/2023 FINDINGS: CERVICAL SPINE: Again noted is the previously described multilevel fusion hardware throughout the entire length of th e cervical spine, extending into the upper thoracic vertebrae. This includes hardware in the C1 arch and there has been removal of posterior osseous elements at multiple levels including the posterior aspect of the C1 arch. No evidence of acute fractures nor abnormal fluid collections. Multilevel facet fusion is noted. No facet malalignment. No lytic osseous findings.. No prevertebral soft tissue swelling. No evidence of osteomyelitis. Facet arthropathy evident but no significant facet joint malalignment. The main finding here is significant area of new infiltrate in the posterior segment of the right upp er lobe, not evident on yesterday's chest CT scan. IMPRESSION: Multilevel fusion hardware again noted, as described on yesterday's cervical spine CT scan. No new o sseous findings in the cervical spine nor abnormal hardware related fluid collections. No evidence o f osteomyelitis. The main new finding here is in the right lung, specifically in new area of significant infiltrate in the posterior segment of the right upper lobe. This was not present on yesterday's chest CT scan. Findings of today's CT scan were called by myself to hospitalist nurse practitioner 07/05/2023 at 5 3 0 p.m. RADIATION DOSE DELIVERED: Total DLP DATA REPOSITORY: All CT scans at this facility are submitted to the National Radiology Data Registry (NRDR) Dose Index Registry (DIR) with the [employer] (ACR). RADIATION OPTIMIZATION: All CT scans at this facility use at least one of these dose optimization te chniques: automated exposure control; mA and/or kV adjustment per patient size (includes targeted exa ms where dose is matched to clinical indication); or iterative reconstruction.
[2023-07-05] MEDS: Lactated Ringers 1,000 ML 85 ML IV (18:15)
[2023-07-05] MEDS: Enoxaparin 40 MG/0.4 ML SYR SC (20:40)
[2023-07-05] MEDS: Midodrine 2.5 MG TAB 5 MG PO (20:41)
[2023-07-05] MEDS: VANCOMYCIN 1,500 MG in Normal Saline 250 ML 166.667 MG IVPB (20:44)
[2023-07-05] MEDS: diazePAM 5 MG TAB PO (21:50)
[2023-07-05] MEDS: rOPINIRole 1 MG TAB PO (21:51)
[2023-07-05] MEDS: Tamsulosin 0.4 MG CAPCR PO (21:51)
--- NOTE | 2023-07-05 22:12 | NUR.NOTE ---
At approx 2145 Patient began suddenly calling out, c/o extreme discomfort - feeling cold, shivery, wracked with pain with legs, arms in spasms. RNs attempted repositioning, medicating with requip, oxycodone 5mg, diazepam. Patient had been given scheduled tylenol 1 G at approx 22:20. Initial temp 37.6. Temp repeated at 22:10 and found to be 38.0. Legs and arms massaged. Repositioned high onto L side per patient request. Will continue to monitor. Nursing Note:
[2023-07-05] MEDS: Lidocaine Patch Removal 1 EACH TP (23:33)
[2023-07-06] VITALS (113 sets, daily range): BP systolic 83–176; BP diastolic 49–106; PULSE 59–143; RESP 9–26; TEMP 36.9–37.7; O2SAT 85–99
[2023-07-06] MEDS: Bimatoprost 0.01% 2.5 ML BTL 1 ML OS ×2 (00:31→22:19)
[2023-07-06] MEDS: Normal Saline Flush 10 ML SYR IVP (00:32)
[2023-07-06] MEDS: HYDROmorphone 2 MG/ML SYR 0.5 MG IVP (00:32)
[2023-07-06 05:59] LABS: Abs Immature Grans 0.01 10^3/uL (0.0-0.06); Absolute Basophil Count 0.01 10^3/uL (0.0-0.2); Absolute Eosinophil Count 0.04 10^3/uL (0.0-0.7); Absolute Lymphocyte Count 1.07 10^3/uL (1.2-3.4); Absolute Monocyte Count 0.43 10^3/uL (0.1-0.8); Absolute Neutrophil Count 3.23 10^3/uL (1.2-6.7); Basophils % 0.2; Eosinophils % 0.8; HCT 25.7 % (40.0-50.0); HGB 8.2 g/dL (13.5-17.5); Immature Grans % 0.2; Lymphocytes % 22.3; MCH 29.8 pg (27.0-33.0); MCHC 31.9 % (32.0-36.0); MCV 94 fL (80-95); MPV 10.2 fL (8.0-11.0); Neutrophils % 67.5; Platelet Count 150 10^3/uL (130-400); RBC 2.75 10^6/uL (4.36-5.78); RDW 14.3 % (11.8-14.1); RDW-SD 47.9 fL; WBC 4.79 10^3/uL (4.4-10.8)
[2023-07-06 06:19] LABS: Vancomycin, Random 18.1 ug/mL
[2023-07-06 06:34] LABS: ALT 25 U/L (16-63); AST 46 U/L (15-37); Albumin 2.2 g/dL (3.4-5.0); Alkaline Phosphatase 63 U/L (46-116); Anion Gap 5.6 mmol/L (3-11); Bilirubin, Total 0.3 mg/dL (0.2-1.0); C-Reactive Protein 9.33 mg/dL (0.0-0.3); CO2 25.4 mmol/L (21.0-32.0); CREATININE 1.7 mg/dL (0.70-1.30); Calcium 8.7 mg/dL (8.5-10.1); Chloride 103 mmol/L (98-107); Glucose 100 mg/dL (74-106); Potassium 4.4 mmol/L (3.5-5.1); Sodium 134 mmol/L (136-145); Total Protein 5.9 g/dL (6.4-8.2)
[2023-07-06 06:40] LABS: Procalcitonin 5.2 ng/mL
[2023-07-06] MEDS: Lactated Ringers 1,000 ML 85 ML IV (06:41)
[2023-07-06 06:52] LABS: BUN 24 mg/dL (7-18)
--- NOTE | 2023-07-06 08:13 | RESPIRATORY ---
RT spoke with patient concerning the use of home oxygen, patient currently does not have any home oxygen.
[2023-07-06] MEDS: Acetaminophen 500 MG TAB 1000 MG PO ×3 (08:37→18:58)
[2023-07-06] MEDS: Allopurinol 100 MG TAB 200 MG PO (08:38)
[2023-07-06] MEDS: Ascorbic Acid 500 MG TAB 1000 MG PO (08:38)
[2023-07-06] MEDS: Baclofen 10 MG TAB PO ×3 (08:39→18:58)
[2023-07-06] MEDS: Cholecalciferol (Vitamin D3) 400 UNIT TAB PO (08:39)
[2023-07-06] MEDS: Clopidogrel 75 MG TAB PO (08:42)
[2023-07-06] MEDS: Rosuvastatin 10 MG TAB PO (08:42)
[2023-07-06] MEDS: Famotidine 20 MG TAB PO (08:42)
[2023-07-06] MEDS: Lidocaine 5% Patch 1 PATCH TD (09:10)
--- NOTE | 2023-07-06 09:25 | PGE_ITS ---
Date of Service Date of service: 07/06/23 Time of Service: 09:25 Assessment and Plan Assessment and plan (1) Sepsis: Status: Acute Assessment and plan: Patient is hemodynamically stable has been off norepinephrine since 1836 yesterday. He was started on midodrine yesterday but he is actually hypertensive this morning and therefore I have put midodrine on hold. His blood cultures are postive from 07/04 for GNR and his urine from 07/04 is growing Klebsiella that is reistant to ampicillin but otherwise is sensitive to all other antibiotics. He is currently on meropenem 2 gm q12h which was begun yesterday after initially being treated w/ Rocephin, however, we can de-escalate his antibiotics back to Rocephin but I would use higher doseage of 2 gm IV q12h given his pyelonephritis and sepsis w/ bacteremia. I obtained [place]rology consult [place]/ [place] [facility] [place] CT images and he does not feel that this is a mass nor an abscess but more consistent w/ left sided pyelonephritis. He agrees w/ current antibiotic management. He suggested I.D. consult for duration of antibiotics, however, I do not need I.D. input on this mattter. He did recommend repeat renal imaging in 2 weeks or sooner if he deteriorates. I will transfer him to med/surg and consult P.T. to mobilize him and improve his strength. He has a concommitant pneumonia w/ new infiltrate seen on RUL that was not seen on his admission CT scan. I have ordered DuoNeb treatments, IS and acapella. He is on low flow [place] oxygen. Critical care time spent interviewing and examining the patient, reviewing studies, discussing case with patient's nurse and consulting physicians was 45 minutes Qualifiers: Acute renal failure type: unspecified Sepsis acute organ dysfunction status: with acute organ dysfunction Sepsis type: sepsis due to unspecified organism Severe sepsis acute organ dysfunction type: acute renal failure Severe sepsis shock status: with septic shock Qualified Code(s): A41.9 - Sepsis, unspecified organism; R65.21 - Severe sepsis with septic shock; N17.9 - Acute kidney failure, unspecified (2) Renal abscess, left: Status: Suspected Assessment and plan: at present not a discrete abscess but is consistent w/ pyelonephritis. continue rendon for his urinary retention (3) Pyelonephritis: Status: Acute Assessment and plan: as above (4) Acute UTI (urinary tract infection): Status: Acute Assessment and plan: As above (5) Urinary retention: Status: Chronic Assessment and plan: secondary to BPH, already on flomax which has been restarted. Proscar added. continue rendon catheter but will give him trial of spontaneous voiding prior to discharge. He needs urology follow up. I will have Dr. Lennon see him on Saturday. (6) Community acquired pneumonia: Status: Acute Assessment and plan: continue ceftriaxone as per treatment of pyelnephritis. add DuoNeb, IS and acapella. check sputum cultures if able to obtain, monitor oxygen needs and daily inflammatory markers. encourage mobilization. will consult w/ P.T. to work on his deconditioning. Qualifiers: Laterality: right Lung location: upper lobe of lung Qualified Code(s): J18.9 - Pneumonia, unspecified organism (7) Elevated troponin I level: Status: Acute Assessment and plan: Type II demand ischemia secondary to hypotension and sepsis. Normal LV and RV function per echocardiogram. (8) MANJU (acute kidney injury): Status: Acute Assessment and plan: Secondary to hypertension sepsis with slight increase in creatinine overnight probably due to contrast-induced nephropathy. Continue to monitor. Avoid nephrotoxins. Avoid further contrast studies. 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 aspirin was added per ED discussion w[place] [facility] [place] I have kept the aspirin but feel that his troponin leak was d/t hypotension and sepsis. However he may have occult CAD given his hx of PAD. I asked him about any heart cath during his workup in [place] in 1999 when his pacer was placed and he does not recall any coronary catheterization. (11) Anemia: Status: Chronic Assessment and plan: prior remote hx of iron deficiency anemia but patient denies any recent hx of anemia. he denies any melena or hematochezia. I will put him on PPI and obtain anemia workup in the morning. Stool was negative for occult blood per rectal exam on admission exam (12) DNR no code (do not resuscitate): Status: Chronic Assessment and plan: DNR/DNI per my discussion w/ the patient (13) DVT prophylaxis: Status: Acute Assessment and plan: enoxaparin SC Subjective Subjective Interval history since last seen: Patient is feeling better. Back pain is improved. He has been hemodynamically stable overnight and been off the N.E. since 18:27 yesterday. He is glad to be up out of bed. He was sitting in the chair when I met w/ him this morining. Exam Narrative Exam Narrative: Alert and oriented x4 Neck: Supple, nontender Lungs: bibasilar rales, no rhonchi Heart: Regular rate and rhythm without murmur rub or gallop. Normal apical impulse. 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 and his legs are still very weak but now able to lift them up off the leg rest of the chair Rendon draining clear yellow urine Objective Last Vital Signs Temp 36.9 C 07/06/23 08:37 Pulse 71 07/06/23 08:21 Resp 18 07/06/23 08:21 BP 176/71 H 07/06/23 08:21 Pulse Ox 91 L 07/06/23 08:21 Laboratory Results - last 24 hr 07/05/23 07/06/23 07/06/23 23:00 05:35 19:00 WBC 4.79 RBC 2.75 L Hgb 8.2 L D Hct 25.7 L MCV 94 MCH 29.8 MCHC 31.9 L RDW 14.3 H Plt Count 150 MPV 10.2 Immature Gran % 0.2 Neutrophils % 67.5 Lymphocytes % 22.3 Monocytes % 9.0 Eosinophils % 0.8 Basophils % 0.2 Nucleated RBC % 0.0 Absolute Neutrophils 3.23 Absolute Lymphocytes 1.07 L Absolute Monocytes 0.43 Absolute Eosinophils 0.04 Absolute Basophils 0.01 Sodium 134 L Potassium 4.4 Chloride 103 Carbon Dioxide 25.4 Anion Gap 5.6 BUN 24 H Creatinine 1.7 H Est GFR (CKD-EPI 2020) 40.00 Glucose 100 Calcium 8.7 Total Bilirubin 0.3 AST 46 H ALT 25 Alkaline Phosphatase 63 C-Reactive Protein 9.33 H Total Protein 5.9 L Albumin 2.2 L Procalcitonin 5.2 Vancomycin Trough Cancelled Random Vancomycin Cancelled 18.1 PAWSS Have you Been Recently Intoxicated or Drunk Within the Last 30 days?: No Have you Ever Experienced Previous Episodes of Alcohol Withdrawal?: No Have you ever Experienced Withdrawal Seizures?: No Have you ever Experienced Delirium Tremens(DT)s?: No Have you ever undergone Alcohol Rehabilitation Treatment (i.e, inpt ot outpatient treatment programs)?: No Have you ever Experienced Blackouts?: No Have you ever Combined Alcohol with other Downers within the last 90 days?: No Have you ever Combined Alcohol with any other Substance of Abuse during the last 90 days?: No Positive Blood Alcohol level on Presentation? [PCS.BAL]: No Evidence of Increased Autonomic Activity (i.e. HR>120, tremor, sweating, agitation, nausea)?: No Result: 0 Time Spent with Patient Time Spent with Patient: 35-49 minutes Time was spent: preparing to see the patient(eg.review tests), ordering medications,tests, procedures, referring, communicating with other health senior resident care director (Dr. Gross, [place], [facility] [place] indepentently interpreting results, counseling the patient and care coordination
[2023-07-06] MEDS: Finasteride 5 MG TAB PO (10:18)
--- NOTE | 2023-07-06 10:59 | NUR.NOTE ---
Patient's is in to visit.Nursing Note:
--- NOTE | 2023-07-06 11:59 | NUR.NOTE ---
Patient is set up with his lunch tray. Patient's assists patient.Nursing Note:
--- NOTE | 2023-07-06 12:39 | NUR.NOTE ---
RN notifies Sleeve Separator, Access and Med/Surg Admit of patient's transfer orders to Med/Surg level of care.Nursing Note:
[2023-07-06] MEDS: Albuterol/Ipratropium 3 ML UPD VIAL UPD ×3 (12:40→20:41)
--- NOTE | 2023-07-06 15:39 | NUR.NOTE ---
Patient remains up in chair. Vital signs are stable. Patient reports feeling well.Note:
--- NOTE | 2023-07-06 17:01 | NUR.NOTE ---
Patient is set up with his dinner tray and begins feeding himself.Nursing Note:
[2023-07-06] MEDS: cefTRIAXone 2 GM/50 ML BAG IVPB (17:27)
[2023-07-06] MEDS: oxyCODONE 5 MG TAB PO (18:58)
[2023-07-06] MEDS: Enoxaparin 40 MG/0.4 ML SYR SC (18:58)
[2023-07-06] MEDS: Lidocaine Patch Removal 1 EACH TP (19:13)
[2023-07-06] MEDS: diazePAM 5 MG TAB PO (22:19)
[2023-07-06] MEDS: rOPINIRole 1 MG TAB PO (22:20)
[2023-07-06] MEDS: Tamsulosin 0.4 MG CAPCR PO (22:20)
[2023-07-07] VITALS (37 sets, daily range): BP systolic 108–147; BP diastolic 60–77; PULSE 60–93; RESP 2–23; TEMP 36.6–37.5
[2023-07-07] MEDS: cefTRIAXone 2 GM/50 ML BAG IVPB ×2 (05:13→17:12)
[2023-07-07 05:45] LABS: Abs Immature Grans 0.01 10^3/uL (0.0-0.06); Absolute Basophil Count 0.01 10^3/uL (0.0-0.2); Absolute Eosinophil Count 0.18 10^3/uL (0.0-0.7); Absolute Lymphocyte Count 1.24 10^3/uL (1.2-3.4); Absolute Monocyte Count 0.45 10^3/uL (0.1-0.8); Absolute Neutrophil Count 1.96 10^3/uL (1.2-6.7); Basophils % 0.3; Eosinophils % 4.7; HCT 27.7 % (40.0-50.0); HGB 8.9 g/dL (13.5-17.5); Immature Grans % 0.3; Lymphocytes % 32.2; MCH 29.3 pg (27.0-33.0); MCHC 32.1 % (32.0-36.0); MCV 91 fL (80-95); MPV 9.6 fL (8.0-11.0); Monocytes % 11.7; Neutrophils % 50.8; Platelet Count 177 10^3/uL (130-400); RBC 3.04 10^6/uL (4.36-5.78); RDW 14.1 % (11.8-14.1); RDW-SD 47.5 fL; WBC 3.85 10^3/uL (4.4-10.8)
[2023-07-07 06:07] LABS: ALT 29 U/L (16-63); AST 34 U/L (15-37); Albumin 2.4 g/dL (3.4-5.0); Alkaline Phosphatase 66 U/L (46-116); Anion Gap 9.1 mmol/L (3-11); BUN 24 mg/dL (7-18); Bilirubin, Total 0.2 mg/dL (0.2-1.0); CO2 25.9 mmol/L (21.0-32.0); CREATININE 1.4 mg/dL (0.70-1.30); Chloride 102 mmol/L (98-107); Estimated GFR 50.49 (mL/min/1.73m2); Glucose 105 mg/dL (74-106); Potassium 4.4 mmol/L (3.5-5.1); Sodium 137 mmol/L (136-145); Total Protein 6.2 g/dL (6.4-8.2)
[2023-07-07 07:29] LABS: Legionella Ag Detection Urine Negative (Negative)
[2023-07-07] MEDS: Baclofen 10 MG TAB PO ×3 (08:19→21:39)
[2023-07-07] MEDS: Allopurinol 100 MG TAB 50 MG PO (08:20)
[2023-07-07] MEDS: Famotidine 20 MG TAB PO (08:20)
[2023-07-07] MEDS: Clopidogrel 75 MG TAB PO (08:20)
[2023-07-07] MEDS: Rosuvastatin 10 MG TAB PO (08:21)
[2023-07-07] MEDS: Acetaminophen 500 MG TAB 1000 MG PO ×3 (08:21→21:39)
[2023-07-07] MEDS: Cholecalciferol (Vitamin D3) 400 UNIT TAB PO (08:22)
[2023-07-07] MEDS: Finasteride 5 MG TAB PO (08:22)
[2023-07-07] MEDS: Ascorbic Acid 500 MG TAB 1000 MG PO (08:24)
--- NOTE | 2023-07-07 09:33 | PGE_ITS ---
Date of Service Date of service: 07/07/23 Time of Service: 09:33 Assessment and Plan Assessment and plan (1) Sepsis: Status: Acute Assessment and plan: stable and responding to antibiotics (now on high dose Rocephin 2 gm IV q12h, had been on meropenem but urine culture and blood culture grew Klebsiella which was resistant to ampicillin but otherwise was sensitive to all antibiotics tested. Repeat blood culture taken today and is pending. I anticipate he needs 10 to 14 days of antibiotics but once his bacteremia has cleared then we can discuss transition to oral antibiotics and plans for dc home. I have put in P.T. consult to work on his strength and ambulatory status. Professional time spent interviewing and examining patient, discussion of goals of care with hospital team (care management, nursing and consulting professionals) was 35 minutes. Patient's came in for visit and I updated on his condition and treatment Qualifiers: Sepsis type: sepsis due to unspecified organism Sepsis acute organ dysfunction status: with acute organ dysfunction Severe sepsis acute organ dysfunction type: acute renal failure Acute renal failure type: unspecified Severe sepsis shock status: with septic shock Qualified Code(s): A41.9 - Sepsis, unspecified organism; R65.21 - Severe sepsis with septic shock; N17.9 - Acute kidney failure, unspecified (2) Renal abscess, left: Status: Suspected Assessment and plan: initial CT reading was questionable abscess versus mass. No mass seen on renal U.S. I had discussion yesterday w/ Dr. De La O, urology from [facility] [place] who reviewed the CT scans and did not find any abscess. He did indicate that this showed pyelonephritis and receommended follow up study in 2 weeks but repeat sooner if clincal deterioration. I will have Dr. Lennon see him tomorrow. Xochitl has lower urinary tract obstructive symptoms from BPH. I have him on Flomax and added Proscar to his regimen. (3) Pyelonephritis: Status: Acute Assessment and plan: as above (4) Acute UTI (urinary tract infection): Status: Acute Assessment and plan: As above (5) Urinary retention: Status: Chronic Assessment and plan: secondary to BPH, already on flomax which has been restarted. Proscar added. continue rendon catheter for now. Will have Dr. Lennon see him tomorrow and let him decide on timing of spontaneous voiding trial (probably will be done as outpatient given his recent complicated UTI (6) Community acquired pneumonia: Status: Acute Assessment and plan: continue ceftriaxone as per treatment of pyelnephritis. add DuoNeb, IS and acapella. check sputum cultures if able to obtain, monitor oxygen needs and daily inflammatory markers. encourage mobilization. will consult w/ P.T. to work on his deconditioning. Qualifiers: Laterality: right Lung location: upper lobe of lung Qualified Code(s): J18.9 - Pneumonia, unspecified organism (7) Elevated troponin I level: Status: Acute Assessment and plan: Type II demand ischemia secondary to hypotension and sepsis. Normal LV and RV function per echocardiogram. (8) MANJU (acute kidney injury): Status: Acute Assessment and plan: Secondary to hypertension sepsis with slight increase in creatinine yesterday d/t contrast studies but now improving. Good urine output, over 2 liters per day. continue to monitor U.O. and daily labs. 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 aspirin was added per ED discussion w/ [facility] [place] cardiology. I have kept the aspirin but feel that his troponin leak was d/t hypotension and sepsis. However he may have occult CAD given his hx of PAD. I asked him about any heart cath during his workup in [place] in 1999 when his pacer was placed and he does not recall any coronary catheterization. (11) Anemia: Status: Chronic Assessment and plan: prior remote hx of iron deficiency anemia but patient denies any recent hx of anemia. he denies any melena or hematochezia. I will put him on PPI and obtain anemia workup in the morning. Stool was negative for occult blood per rectal exam on admission exam (12) DNR no code (do not resuscitate): Status: Chronic Assessment and plan: DNR/DNI per my discussion w/ the patient (13) DVT prophylaxis: Status: Acute Assessment and plan: enoxaparin SC Subjective Subjective Interval history since last seen: Rafael is feeling better. No back or flank pain today. Eating better. No nausea or abdominal complaints. Exam Narrative Exam Narrative: Alert and oriented x4 Lungs: Clear to auscultation and percussion Heart: Regular rate and rhythm without murmur rub or gallop. Normal apical impulse. rhythm per monitor appears to be sinus w/ ventricular pacing Abdomen: Nondistended, normal bowel sounds, nontender to palpation or percussion, no organomegaly, no bruits, no palpable masses Extremities: Normal range of motion with normal strength. No peripheral cyanosis or edema. Normal pulses Neurologic:CN grossly normal, motor: he remains weak but improving, he has been able to feed himself today, using his arms and hands, still has the contractures in his hands, leg strength also improving Rendon catheter draining clear, yellow urine Objective Last Vital Signs Temp 37.0 C 07/06/23 18:20 Pulse 66 07/06/23 20:41 Resp 19 07/07/23 01:30 BP 103/54 L 07/06/23 19:01 Pulse Ox 97 07/06/23 20:41 Laboratory Results - last 24 hr 07/07/23 05:10 WBC 3.85 L RBC 3.04 L Hgb 8.9 L Hct 27.7 L MCV 91 MCH 29.3 MCHC 32.1 RDW 14.1 Plt Count 177 MPV 9.6 Immature Gran % 0.3 Neutrophils % 50.8 Lymphocytes % 32.2 Monocytes % 11.7 Eosinophils % 4.7 Basophils % 0.3 Nucleated RBC % 0.0 Absolute Neutrophils 1.96 Absolute Lymphocytes 1.24 Absolute Monocytes 0.45 Absolute Eosinophils 0.18 Absolute Basophils 0.01 Sodium 137 Potassium 4.4 Chloride 102 Carbon Dioxide 25.9 Anion Gap 9.1 BUN 24 H Creatinine 1.4 H Est GFR (CKD-EPI 2020) 50.49 Glucose 105 Calcium 9.0 Total Bilirubin 0.2 AST 34 ALT 29 Alkaline Phosphatase 66 Total Protein 6.2 L Albumin 2.4 L PAWSS Have you Been Recently Intoxicated or Drunk Within the Last 30 days?: No Have you Ever Experienced Previous Episodes of Alcohol Withdrawal?: No Have you ever Experienced Withdrawal Seizures?: No Have you ever Experienced Delirium Tremens(DT)s?: No Have you ever undergone Alcohol Rehabilitation Treatment (i.e, inpt ot outpatient treatment programs)?: No Have you ever Experienced Blackouts?: No Have you ever Combined Alcohol with other Downers within the last 90 days?: No Have you ever Combined Alcohol with any other Substance of Abuse during the last 90 days?: No Positive Blood Alcohol level on Presentation? [PCS.BAL]: No Evidence of Increased Autonomic Activity (i.e. HR>120, tremor, sweating, agitation, nausea)?: No Result: 0 Time Spent with Patient Time Spent with Patient: 35-49 minutes Time was spent: preparing to see the patient(eg.review tests), ordering medic ations,tests, procedures, referring, communicating with other health client care consultant, indepentently interpreting results, counseling the patient and care coordination
--- NOTE | 2023-07-07 10:19 | PT.INIE ---
PT Notes Visit Reasons: Sepsis Inpatient Physical Therapy Evaluation Date: [07/07/2023] Referring Doctor: Wil Gutierrez PT Orders: PT CONSULT: Extended stay, weakness Precautions: standard, sepsis, hx of recent C1-2 fusion (04/11/23[place] Patient Profile/Admitting Diagnosis: Sepsis Rafael is an 83yo male admitted for sepsis and weakness. He presented to ED 07/04/2023 after 2 falls at home. 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 S/P cervical C1-2 laminecotomy 04/11/2023 at [facility] rehab until 06/02/23 and has been attending outpatient PT. He had c/o generalized weakness and multiple falls feeling more weak after PT session 07/03/23 and subsequently fell 2x after PT at home. CT scan shows hardware in place no fx, and multiple fusions of c-spine. He is tentative of his ability to try to go sit to stand today but he does state he feels better than he did 4 days ago. PMHX: All Active Problems (Updated 07/04/23 @ 19:41 by Wil Gutierrez MD) DVT prophylaxis (Acute) DNR no code (do not resuscitate) (Chronic) Sepsis (Acute) Hypomagnesemia (Acute) Anemia (Chronic) Acute non-ST elevation myocardial infarction (NSTEMI) (Acute) MANJU (acute kidney injury) (Acute) Acute UTI (urinary tract infection) (Acute) History of prostate cancer (Acute) Leg muscle spasm (Acute) Low blood pressure (Acute) Weakness (Chronic) Diverticulosis (Chronic) Wrist pain, left (Acute) ? carpal tunnel ? goutExcessive consumption of ethanol (Chronic 03/18/18) Coronary artery disease (Chronic 03/18/18) Cervical myelopathy (Acute 03/18/18) Medical History (Updated 07/04/23 @ 19:41 by Wil Gutierrez MD) Hx of chest pain Had negative stress test (see [facility] cardiology records)Hyperlipidemia Peripheral arterial occlusive disease Hypertension RBBB Sinus bradycardia Surgical History (Updated 07/04/23 @ 18:51 by Wil Gutierrez MD) H/O spinal fusion multiple spinal surgeries including lumbar, and cervical spine, last one at [facility] March 2023Hx of spinal surgery H/O angioplasty Has a stent placed in one leg (pt. doesn't remember which leg) Social History/Home Situation: Lives with , uses commode as bathroom is 1 step which he at baseline is unable to manage, his assists with ADL's at baseline however he is able to feed himself sometimes using adaptive silverware and sometimes regular. At recent baseline he is unable to transfer indep w/c to RW (he likes stationary walker to transfer and RW for actual ambulation and this is noted when he uses the walker to pull himself up as this is how he does it at home due to his UE weakness and leg weakness) Current Functional Limitations: Unable to transfer, needs RW/Walker for ambulation at baseline Equipment Owned/DME: w/c, RW, standard walker Subjective: His is present with him today, and together they are able to provide a good hx of functional status prior to spine surgery as well as prior to recent decline. Patient is quite frustrated with his severity of decline over the past 4-5 days and states that he knew something was wrong leading up to hospitalization. Objective: General Observation: Sitting up in chair in ICU with no IV attached and RN able to detach monitors to allow for ease of evaluation. He does have a Lopez in place and will be evaluated by his PCP tomorrow with regard to the status. He has fecal incontinence with transfers today. Mental Status: Fab is extremely cooperative, A&O x4, he does describe his status prior to this admission that he was attending outpatient physical therapy at [facility] working on transfers and short ambulation with RW. He states prior to 5 days ago he was able to perform wheelchair to stand with min assist and 1 time he was able to do without assist. I am not quite sure how he was performing his sit to stand at home as he does state that he uses the RW to pull on assist to stand with his and when ambulating very short distances approximately 10 feet with his following with . In PT he always has somebody at his side which he states gave him confidence and was able to walk longer distances 10-20 feet with 1 time doing 25 feet again this is all prior to 5 days ago. On his PT visit last Saturday he states that he did not feel right and reported to PT at that time that he was going to have difficulty performing his regular PT session which is typically approximately 1 hour long. He states that he needed max assist to go sit to stand and then had refused to do any ambulation because of his level of weakness and knowing something was wrong. He states that he had a fall back in January and his status before that was he was able to ambulate with a rolling walker and go sit to stand independently however since his fall he needed assistance for all ADLs and transfers wheelchair to stand and states that prior to this episode he had gotten better than his status immediately presurgically. Pain:no c/o pain Vital Signs: HR ranges 65-88 BP 141/77 RR 17 ROM: Right Upper Extremity: Limited below shoulder level Left Upper Extremity: Limited below shoulder level Right Lower Extremity: Passive hip flexion 100, knee extension -10 , passive DF 0 Left Lower Extremity: Passive hip flexion 100, knee extension -20, passive DF -5 Strength: Right Upper Extremity: Patient reports near baseline with limited strength from history of myelopathy Left Upper Extremity: Patient reports near baseline with limited strength from history of myelopathy Right Lower Extremity: Right LE stronger than left but reports weaker than baseline hip flexion 3/5, knee extension 3/5, knee flex 3/5, DF 2/5 Left Lower Extremity: Right LE stronger than left but reports weaker than baseline bilaterally. hip flex 2/5, quad 2+/5, DF 2-/5 Sensation: hx of parathesias both LE Bed Mobility/Transfers: bed mobility not assessed, per patient requires mod assist of 1 at baseline. Pt. is assessed from hospital chair today. With time can indep move to front of chair in prep for sit to stand hospital chair to stand at RW with patient holding onto walker and pulling up with both UE as this is how he does it at home(pt. insists more confident this way), PT holding walker in place, with mod assist of 2 at gait belt on patients count to 3. Standing at RW with mod assist of 1 and v/c to stand tall, deep breathe, most weightbearing on right and did not reposition left LE with v/c as pt also had fecal incontinence upon standing and was quite upset about this. He was able to stand with mod assist of 1 to allow for positioning of commode behind him and then max assist of 1 to sit. Gait: N/A in out patient PT 1 week ago pt ambulating with RW, CTG with someone following with w/c x10-20', at home less distance <10' with following with w/c Balance: Static Sitting: Pt has difficulty with fair Dynamic Sitting: poor Static Standing: poor Dynamic Standing: unable Therapeutic Procedures ([id number]) 8' Review exercises to perform in chair:He states normally he can do this indep. Pt states he has not done these since being in the hospital but traditionally does and is frustrated as he needs assist to perform them today. Should also start UE exercises and should get OT referral. DF AAROM 2x5 knee ext 2x5 with active assist to end range hip flexion x5 AA to end range Special Tests: Mobility Limitations Standardized Measure [facility] AM-PAC 6 clicks Basic Mobility Inpatient Short Form: Raw Score:8 CMS Score: 85.69 Informed Consent/Education: Patient instructed in purpose of PT consult and plan of care. Assessment: Patient is a 83year old male referred to physical therapy services with the diagnosis of sepsis, general weakness history of myelopathy. Patient presents with clinical signs and symptoms consistent with sepsis, general weakness, severe cervical and lumbar DJD with myelopathy and status post C1-2 fusion 04/11/2023 at [facility], as demonstrated by the following impairment level findings: Weakness upper extremity and lower extremity greater than baseline, difficulty with transfers, difficulty with ambulation, poor balance and decreased overall function. Patient would also benefit from OT evaluation as he was slated to have outpatient OT evaluation this coming week and likely is more compromised based on medical status. PT Impairments are contributing to the following functional limitations: AMPAC score. Patient is assessed as a Moderate 07151 complexity based on the following: History: As outlined above Examination: As outlined Presentation: Evolving Decision Making: Moderate Goals: Goals X1 week 1. Supine-Sit min A 2. Sit-Supine min A 3. Sit-Stand min A 4. Stand-Sit at least mod A of 1 or better 5. Bed-Chair mod A of 1 or better 6. Chair-Bed mod A of 1 or better 7. Gait min A of 1 with RW with w/c to follow 10' 8. Stairs n/a 9. Independent with home exercise program 10. Balance fair or better sitting static and dynamic, fair standing static Plan of Care/Treatment Plan: Recommend OT referral while in hospital. 1-2x/day, 7 days/week x 1 week. Plan of care has been reviewed with the CREDIT CONTROL ADMINISTRATOR providing the service under Physical Therapy direction. Initiate Physical Therapy intervention for strengthening, bed mobility, transfers, gait, balance training, use of assistive device. DISCHARGE RECOMMENDATIONS: Based on progress with ability to transfer with assist of may be able to go home with services but as of today SNF for continued rehab. SNF for continued rehabilitation or Home with services PT /OT if able to progress TREATMENT CODE/TIME: 37576, [id number](8min) 10:35-11:15 40'
[2023-07-07] MEDS: Albuterol/Ipratropium 3 ML UPD VIAL UPD ×3 (10:20→16:09)
[2023-07-07] MEDS: oxyCODONE 5 MG TAB PO (21:34)
[2023-07-07] MEDS: diazePAM 5 MG TAB PO (21:35)
[2023-07-07] MEDS: Tamsulosin 0.4 MG CAPCR PO (21:35)
[2023-07-07] MEDS: rOPINIRole 1 MG TAB PO (21:38)
[2023-07-07] MEDS: Bimatoprost 0.01% 2.5 ML BTL 1 ML OS (21:39)
[2023-07-07] MEDS: Enoxaparin 40 MG/0.4 ML SYR SC (21:39)
[2023-07-07] MEDS: HYDROmorphone 2 MG/ML SYR 0.5 MG IVP (21:51)
--- NOTE | 2023-07-07 23:47 | NUR.NOTE ---
Nursing Note: 2300 After the patient had transferred from ICU to 225, this nurse in went to apply the ordered telemetry for continued cardiac monitoring. After hearing an explanation of how the monitor works and the rationale for using it, the patient questioned why he really needs it. An in-depth conversation about his goals of care ensued. He was very interested in hearing about Palliative Care and stated that he would like to have a Palliative Care consult. At the end of the conversation he was very clear that he did not want to continue with cardiac monitoring and asked for the welcome wagon host/hostess not to be placed.
[2023-07-08 02:21] VITALS: BP 119/60; PULSE 71; RESP 18; TEMP 36; O2SAT 92
[2023-07-08] MEDS: oxyCODONE 5 MG TAB PO ×2 (05:03→21:22)
[2023-07-08] MEDS: cefTRIAXone 2 GM/50 ML BAG IVPB ×2 (05:04→18:21)
[2023-07-08 07:01] LABS: Abs Immature Grans 0.01 10^3/uL (0.0-0.06); Absolute Basophil Count 0.03 10^3/uL (0.0-0.2); Absolute Eosinophil Count 0.23 10^3/uL (0.0-0.7); Absolute Lymphocyte Count 1.76 10^3/uL (1.2-3.4); Absolute Monocyte Count 0.35 10^3/uL (0.1-0.8); Absolute Neutrophil Count 2.58 10^3/uL (1.2-6.7); Basophils % 0.6; Eosinophils % 4.6; HCT 26.9 % (40.0-50.0); HGB 8.6 g/dL (13.5-17.5); Immature Grans % 0.2; Lymphocytes % 35.5; MCH 29.3 pg (27.0-33.0); MCV 92 fL (80-95); Monocytes % 7.1; Platelet Count 210 10^3/uL (130-400); RBC 2.94 10^6/uL (4.36-5.78); RDW 14.1 % (11.8-14.1); RDW-SD 47.8 fL; WBC 4.96 10^3/uL (4.4-10.8)
[2023-07-08 07:27] LABS: ALT 27 U/L (16-63); AST 32 U/L (15-37); Albumin 2.3 g/dL (3.4-5.0); Alkaline Phosphatase 61 U/L (46-116); Anion Gap 8.8 mmol/L (3-11); BUN 25 mg/dL (7-18); Bilirubin, Total 0.2 mg/dL (0.2-1.0); C-Reactive Protein 3.69 mg/dL (0.0-0.3); CO2 27.2 mmol/L (21.0-32.0); CREATININE 1.2 mg/dL (0.70-1.30); Calcium 9.1 mg/dL (8.5-10.1); Chloride 105 mmol/L (98-107); Estimated GFR 60.75 (mL/min/1.73m2); Glucose 100 mg/dL (74-106); Potassium 3.9 mmol/L (3.5-5.1); Sodium 141 mmol/L (136-145); Total Protein 6.1 g/dL (6.4-8.2)
[2023-07-08 07:31] VITALS: PULSE 62; RESP 16; RESP 2; O2SAT 93
[2023-07-08] MEDS: Albuterol/Ipratropium 3 ML UPD VIAL UPD (07:31)
[2023-07-08 07:46] VITALS: BP 118/56; PULSE 62; RESP 16; TEMP 36.5; O2SAT 92
[2023-07-08] MEDS: Rosuvastatin 10 MG TAB PO (08:53)
[2023-07-08] MEDS: Allopurinol 100 MG TAB 50 MG PO (08:54)
[2023-07-08] MEDS: Famotidine 20 MG TAB PO (08:54)
[2023-07-08] MEDS: Baclofen 10 MG TAB PO ×3 (08:54→21:22)
[2023-07-08] MEDS: Finasteride 5 MG TAB PO (08:54)
[2023-07-08] MEDS: Cholecalciferol (Vitamin D3) 400 UNIT TAB PO (08:54)
[2023-07-08] MEDS: Clopidogrel 75 MG TAB PO (08:55)
[2023-07-08] MEDS: Acetaminophen 500 MG TAB 1000 MG PO ×3 (08:55→21:22)
[2023-07-08] MEDS: Ascorbic Acid 500 MG TAB 1000 MG PO (08:56)
[2023-07-08] MEDS: Lidocaine 5% Patch 1 PATCH TD (08:57)
[2023-07-08] MEDS: Normal Saline Flush 10 ML SYR IVP ×2 (08:58→18:20)
[2023-07-08 09:28] LABS: Transferrin 165 mg/dL (201-352)
--- NOTE | 2023-07-08 10:25 | W.SPSTE ---
Date of service: 07/08/23 Time of Service: 08:45 Subjective Clinical (Bedside) Swallow Evaluation Speech Language Pathology Referred by: Dr Gutierrez Referral Type: Clinical Swallow Evaluation Reason for Referral/HPI: Rafael Sarabia is an 83 yo male who was admitted 07/06/23 with UTI, sepsis, weakness, and question of renal abscess vs mass. He was referred to MACHINE TOOL MECHANIC for swallow assessment in light of new pneumonia (not initially identified on admission) in the R upper lobe. 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 Fab reports remote history of pneumonia, noting 4-5 incidents of pna in his lifetime, though states this is his first pneumonia since 2005. He denies dysphagia symptoms, though states meals take hours due to his fine motor challenges. He uses built-up utensils to help, and his often assists in cutting up food or providing easier to cut foods. RN denies dysphagia concerns. MACHINE TOOL MECHANIC IMPRESSIONS & RECOMMENDATIONS: Fab presents with within functional limits oral pharyngeal swallow function. He was seen today for non-instrumental assessment during breakfast meal time. He presented as alert and oriented, tolerating room air. He was observed to self-feed breakfast tray (eggs, coffee, muffin) using built-up utensils. He independently took very small/slow bites and sips and chewed thoroughly prior to swallowing. No overt s/s dysphagia or aspiration appreciated during breakfast meal. Patient expressed frustration with this clinician's assessment, stating it was not a priority in his health at this time. Education provided re: rationale for MACHINE TOOL MECHANIC eval, WFL findings, and no indication for further assessment at this time. FURTHER MACHINE TOOL MECHANIC SERVICES: No further MACHINE TOOL MECHANIC services indicated Diet Recommendations: IDDSI L7 Regular Solids, IDDSI L0 Thin Liquids, Meds whole in liquid/as preferred by patient. SUBJECTIVE: Patient received alert/awake Pain Reported? None Baseline Swallow Function: Patient denies swallowing difficulty prior to admission and eats a regular diet at baseline. PO Trials Assessed: IDDSI 0 Thin Liquids IDDSI 7EC Easy to Chew Solid (Scrambled eggs and muffin) Oral Mechanism Examination: Dentition is WFL. Cranial Nerve Assessment: Not assessed secondary to patient request Oral Phase Findings: WFL Pharyngeal Phase Findings: WFL Two swallows per sip of thin liquid; WFL No coughing, throat clearing, change in vocal quality ? [place] Swallow Protocol Results: PASS ??? ASSESSMENT: Further MACHINE TOOL MECHANIC Services not indicated Recommendation at Discharge: No further MACHINE TOOL MECHANIC services indicated Suggested Referrals:N/A Recommended Procedures: N/A Recommendations: ? SOLIDS: 7-Regular Solids LIQUIDS: 0-Thin Liquids MEDICATIONS: Whole with 0-Thin Liquids RISK MANAGEMENT: HOB upright as tolerated; upright for all PO intake. Level of Assistance/Supervision: Independent (Following assistance with tray set up/positioning) Posture/Positioning Needs: Maintain upright position at least 30 minutes after meals Education Provided to: Patient, Nurse Topics Addressed: Reason for MACHINE TOOL MECHANIC evaluation, standard dysphagia precautions PLAN: Evaluation only MACHINE TOOL MECHANIC CPT Code: 66628 Clinical Swallowing [id number]?Evaluation of speech sound production with evaluation of language comprehension and expression Coding CPT Codes EVALUATE SWALLOWING FUNCTION - 63713 ([id number]) Additional Codes Date of Service (70872) Date of service: 07/08/23
--- NOTE | 2023-07-08 10:35 | PDOC.CMPRO ---
Date of service: 07/08/23 Time of Service: 10:36 Care Management Progress Note Progress Note Text Progress Note Text: S/O:Fab was sitting up in a chair when CM met with him. He engaged easily with CM and stated that he was doing well today. He did share that yesterday he had a bit of difficulty. Apparently he was give a stool softener and had several loose stools throughout the evening and night. He had one final BM this morning where he was nearly incontinent, but has been fine since. Fab stated that he has been working with PT and was able to walk about 6 steps with his walker before transferring into his chair this morning. He stated that he has also been doing exercises. Clinically Fab is doing better. His CRP and procalcitonin are coming down, his vital signs are stable and he is afebrile. Fab reported that Dr. Lennon informed him that he would be going home with a rendon catheter and it will remain in place until he completes the course of antibiotics. A: Rafael is an 83 year old man admitted on 07/04/23 with sepsis P:Anticipate Fab will be discharged home when medically cleared. He may benefit from a short rehab stay if his weakness does not resolve or additional services at home. He will follow up with community providers and plan of care and transport with family. CM will continue to support Fab and his discharge planning needs.
--- NOTE | 2023-07-08 10:53 | PTTR_ITS ---
Date of service: 07/08/23 Time of Service: 09:13 PT Notes Visit Reasons: Sepsis Inpatient Physical Therapy Treatment Note [facility] Date: 07/08/23 PRECAUTIONS: Fall, standard, activity as tolerated. SUBJECTIVE: Patient reports feeling ok. OBJECTIVE: Patient sitting up on commode, ready to transfer back to chair. AFTERNOON: Patient sitting up in chair, agreeable to therapy. ? PAIN: none reported VITALS: monitored by nursing staff Therapeutic Activities (69444p0): Direct one-on-one instruction in dynamic activities to improve functional performance. ? BED MOBILITY/TRANSFERS? Rolling L/R: not assessed Supine-sit: not assessed ? Sit-supine: not assessed ? Sit-stand: mod assist of 1 via gait belt? Stand-sit: mod assist of one for safety, verbal cues for limb placement which patient does not follow, patient plops back into chair? Bed-Chair: min assist of one via gait belt, max verbal cues for sequencing, limb placement, posture. ? Chair-bed: min assist of one via gait belt, max verbal cues for sequencing, limb placement, posture. ? Provided skilled cues and instruction on performance and technique throughout. Gait Training (31137n3): Direct one-on-one instruction and skilled instruction in: [x] employing an assistive device [] modified weight-bearing status [x] movement sequencing [x] turning and movement with proper form [x] Provided verbal cues for equipment management and technique [x] Provided instruction in gait pattern [] Patient education regarding pacing and breathing techniques to maximize activity tolerance? GAIT? Assistive Device: FWW ? Weight bearing: full Assist: Mod assist of 2 at gait belt to maintain upright posture. ? Distance:? 3' forward and back, seated rest x3? Deviation: Bilateral foot drop, extreme hip flexor weakness creates difficulty advancing feet L>R, hip extensor weakness creates difficulty maintaining upright posture, patient tends to hinge forward at the hip as well as having a somewhat kyphotic spine, trunk sways to unweight each leg creating difficulties with balance. ? Neuromuscular Re-education ([id number]): Activities that facilitate re-education of movement balance, posture, coordination, and proprioception or kinesthetic sense, requiring skilled tactile and verbal cues ? Exercises/techniques: * quick stretch applied to ankle into plantarflexion in order to recruit/stimulate TA into dorsiflexion * tapping stimulation applied to TA * Bilateral ankle dorsiflexion practice with assist to right ankle to recruit r ight TA ASSESSMENT:? Patient lacks even trace dorsiflexion on right foot, however during ambulation he is able to compensate slightly better on the right. Left foot has 2-/5 strength in the dorsiflexors, but patient is almost entirely unable to advance left foot during ambulation. PLAN: Continue global strengthening per plan of care. Discuss possible AFO use for left or bilateral feet during ambulation only. TREATMENT CODE/TIME: 19 minutes beginning at 9:13, 47 minutes beginning at 13:41 for a total of 66 minutes today.
--- NOTE | 2023-07-08 12:59 | W.PM.PROGNOT ---
Date of Service Date of service: 07/08/23 Time of Service: 13:00 Assessment and Plan Assessment and plan (1) Sepsis: Status: Acute Assessment and plan: -stable and responding to antibiotics; now on high dose Rocephin 2 gm IV q12h -had been on meropenem but urine culture and blood culture grew Klebsiella which was resistant to ampicillin but otherwise was sensitive to all antibiotics tested. -Repeat blood culture taken 07/07 and is pending. -may be able to transition to PO antibiotics on 07/09 based once final cultures result -f/u P.T. consult to work on his strength and ambulatory status Qualifiers: Acute renal failure type: unspecified Sepsis acute organ dysfunction status: with acute organ dysfunction Sepsis type: sepsis due to unspecified organism Severe sepsis acute organ dysfunction type: acute renal failure Severe sepsis shock status: with septic shock Qualified Code(s): A41.9 - Sepsis, unspecified organism; R65.21 - Severe sepsis with septic shock; N17.9 - Acute kidney failure, unspecified (2) Renal abscess, left: Status: Suspected Assessment and plan: -initial CT reading was questionable abscess versus mass. -No mass seen on renal U.S. -previous physician discussion yesterday w/ Dr. De La O, urology from [facility] [place] [place] who reviewed the CT scans and did not find any abscess. He did indicate that this showed pyelonephritis and receommended follow up study in 2 weeks but repeat sooner if clincal deterioration. -Previous physician had asked Urology to see patient today -Patient has lower urinary tract obstructive symptoms from BPH. He is on Flomax and added Proscar to his regimen. (3) Pyelonephritis: Status: Acute Assessment and plan: -as above (4) Acute UTI (urinary tract infection): Status: Acute Assessment and plan: -As above (5) Urinary retention: Status: Chronic Assessment and plan: -secondary to BPH, already on flomax which has been restarted. -Proscar added. continue rendon catheter for now. -Will have Dr. Lennon see him today and let him decide on timing of spontaneous voiding trial (probably will be done as outpatient given his recent complicated UTI (6) Community acquired pneumonia: Status: Acute Assessment and plan: -continue ceftriaxone as per treatment of pyelnephritis. -add DuoNeb, IS and acapella. check sputum cultures if able to obtain, monitor oxygen needs and daily inflammatory markers. -encourage mobilization. -will consult w/ P.T. to work on his deconditioning. Qualifiers: Laterality: right Lung location: upper lobe of lung Qualified Code(s): J18.9 - Pneumonia, unspecified organism (7) Elevated troponin I level: Status: Acute Assessment and plan: -Type II demand ischemia secondary to hypotension and sepsis. -Normal LV and RV function per echocardiogram. (8) MANJU (acute kidney injury): Status: Acute Assessment and plan: -Secondary to hypertension sepsis with slight increase in creatinine yesterday d/t contrast studies but now improving. -Good urine output, over 2 liters per day. continue to monitor U.O. and daily labs. (9) Hypomagnesemia: Status: Acute Assessment and plan: -Replete and monitor (10) Peripheral arterial occlusive disease: Assessment and plan: -s/p bilateral iliofemoral stents, remains on Plavix chronically. aspirin was added per ED discussion w/ [facility] [place] [place] cardiology. -kept the aspirin but feel that his troponin leak was d/t hypotension and sepsis. -However he may have occult CAD given his hx of PAD. -have asked him about any heart cath during his workup in [place] in 1999 when his pacer was placed and he does not recall any coronary catheterization. (11) Anemia: Status: Chronic Assessment and plan: -prior remote hx of iron deficiency anemia but patient denies any recent hx of anemia. -he denies any melena or hematochezia. -havel put him on PPI and obtain anemia workup AM 06/27. -Stool was negative for occult blood per rectal exam on admission exam (12) DNR no code (do not resuscitate): Status: Chronic Assessment and plan: -DNR/DNI per previous physicians discussion w/ the patient (13) DVT prophylaxis: Status: Acute Assessment and plan: -enoxaparin SC Subjective Subjective Interval history since last seen: Patient states that he is feeling better today and is encouraged by the progress he is making with PT. Exam Narrative Exam Narrative: Well appearing older gentleman sitting up in the chair in no acute distress, AOx4, heart RRR, lungs CTAB, abdomen soft, non-tender, non-distended and without CVA tenderness Objective Last Vital Signs Temp 97.7 F 07/08/23 07:46 Pulse 62 07/08/23 07:46 Resp 16 07/08/23 07:46 BP 118/56 L 07/08/23 07:46 Pulse Ox 92 07/08/23 07:46 Laboratory Results - last 24 hr 07/05/23 07/05/23 07/08/23 05:00 19:00 06:35 WBC 4.96 RBC 2.94 L Hgb 8.6 L Hct 26.9 L MCV 92 MCH 29.3 MCHC 32.0 RDW 14.1 Plt Count 210 MPV 10.0 Immature Gran % 0.2 Neutrophils % 52.0 Lymphocytes % 35.5 Monocytes % 7.1 Eosinophils % 4.6 Basophils % 0.6 Nucleated RBC % 0.0 Absolute Neutrophils 2.58 Absolute Lymphocytes 1.76 Absolute Monocytes 0.35 Absolute Eosinophils 0.23 Absolute Basophils 0.03 Sodium 141 Potassium 3.9 Chloride 105 Carbon Dioxide 27.2 Anion Gap 8.8 BUN 25 H Creatinine 1.2 Est GFR (CKD-EPI 2020) 60.75 Glucose 100 Calcium 9.1 Transferrin 165 L Total Bilirubin 0.2 AST 32 ALT 27 Alkaline Phosphatase 61 C-Reactive Protein 3.69 H Total Protein 6.1 L Albumin 2.3 L Procalcitonin 3.0 Urine Legionella Ag Negative PAWSS Have you Been Recently Intoxicated or Drunk Within the Last 30 days?: No Have you Ever Experienced Previous Episodes of Alcohol Withdrawal?: No Have you ever Experienced Withdrawal Seizures?: No Have you ever Experienced Delirium Tremens(DT)s?: No Have you ever undergone Alcohol Rehabilitation Treatment (i.e, inpt ot outpatient treatment programs)?: No Have you ever Experienced Blackouts?: No Have you ever Combined Alcohol with other Downers within the last 90 days?: No Have you ever Combined Alcohol with any other Substance of Abuse during the last 90 days?: No Positive Blood Alcohol level on Presentation? [PCS.BAL]: No Evidence of Increased Autonomic Activity (i.e. HR>120, tremor, sweating, agitation, nausea)?: No Result: 0 Time Spent with Patient Time Spent with Patient: >50 minutes (55min) Time was spent: preparing to see the patient(eg.review tests), obtaining and/or reviewing separately otained hiistory, ordering medications,tests, procedures, referring, communicating with other health healthcare administrative assistant, indepentently interpreting results, counseling the patient and care coordination
--- NOTE | 2023-07-08 13:37 | UCONE_ITS ---
Date of service: 07/08/23 Time of Service: 13:37 Assessment and Plan Assessment and plan (1) Urinary retention: Status: Chronic Assessment and plan: Clinically, he is worse on the antibiotics. Once his blood cultures showed no bacterial growth, we should be able to work on switching him to oral antibiotics and getting him out of the hospital. I would expect that we would give him a voiding trial after his discharge, but before he completes his oral antibiotic course. We would also make arrangements for a follow-up renal imaging to ensure the suspicious area on CT scan has not worsened. He has no constipation, so I do not believe we need to work on his bowel function. He is already working with physical therapy and Occupational Therapy to help improve his mobility. (2) Pyelonephritis: Status: Acute History of Present Illness History of Present Illness Chief Complaint: Urinary retention Narrative: This is an 83-year-old gentleman who is new to our clinic. He had received previous urologic care when he was living in [place]. He was diagnosed with prostate cancer and treated with external beam radiation. He used a relatively short-term (3 months) androgen deprivation rather than a 2 to 3-year regimen. His most recent PSA from our facility was 0.2 ng/mL back in 2019. He presented to our emergency department 2 to 3 weeks ago with urinary retention. He had a Lopez catheter placed for 900 cc of urine. He was started on medical management with tamsulosin 0.4 mg and came to see us for voiding trials. He had his catheter removed on 06/27/2023 and he was actually able to void initially. He presented to the emergency department a week later with urosepsis. A Lopez catheter was placed while the patient was in the emergency department. It appears that 300 cc of urine was obtained from the catheterization. Both his blood and urine cultures have grown Klebsiella. There was initial concern that there may be a left renal abscess (visualized on CT scan) that would require drainage. A follow-up renal ultrasound showed no abscess and no mass. He has improved with IV antibiotics and has not needed any drainage procedure. It is recommended that a repeat imaging study will be obtained in a few weeks (assuming he continues to respond to antibiotics). He is now on a combination of tamsulosin 0.4 mg and finasteride 5 mg daily. His dose of tamsulosin has not been increased as he was hypotensive on admission. He is working with physical therapy and Occupational Therapy to help regain his strength. He hopes to be able to ambulate with the use of a walker. He has not had any issues with constipation. In fact, he has had diarrhea and some fecal incontinence. Review of Systems Narrative: Fatigue and weakness. No chills No vision change or dysphasia No diabetes or thyroid No shortness of breath, cough or hemoptysis No chest pain or palpitations No nausea, vomiting, hepatitis, ulcers, jaundice No seizures or strokes No bleeding disorders Hand contractions. No gout PFSH All Active Problems (Updated 07/06/23 @ 10:06 by Wil Gutierrez MD) Pyelonephritis (Acute) Community acquired pneumonia (Acute) Urinary retention (Chronic) Elevated troponin I level (Acute) Acute low back pain (Acute) DVT prophylaxis (Acute) DNR no code (do not resuscitate) (Chronic) Sepsis (Acute) Hypomagnesemia (Acute) Anemia (Chronic) Acute non-ST elevation myocardial infarction (NSTEMI) (Acute) MANJU (acute kidney injury) (Acute) Acute UTI (urinary tract infection) (Acute) History of prostate cancer (Acute) Leg muscle spasm (Acute) Low blood pressure (Acute) Weakness (Chronic) Diverticulosis (Chronic) Wrist pain, left (Acute) ? carpal tunnel ? 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 doesn't remember which leg) Family History Mother , 91 Stroke Father , 71 Heart disease Stroke Brother Heart disease Maternal Grandfather , 71 No problems noted. Paternal Grandfather , 36 No problems noted. Maternal Grandmother , 91 No problems noted. Paternal Grandmother , 68 Diabetes Heart disease Son No problems noted. Son , 39 Heart disease Daughter No problems noted. Social History Smoking/Tobacco Use Status: Former Tobacco Use tobacco type: cigarettes Quit Date: 08/26/05 Tobacco: How many years used: 40 Quit status: quit date established Second Hand Exposure: Yes Smoking risk assessment performed?: Yes Alcohol Intake: current Alcohol Intake frequency: a few times a week Alcohol type: beer, wine and hard liquor Substance use type: does not use Caregiver/Support person: No Household members: spouse Housing: house Communication Needs: Hard of Hearing Do you need help understanding health information?: Rarely Pets and animals: Yes Pets and animals: cat(s), dog(s) and horse(s) Sexually active: No Do you think of yourself as: straight/heterosexual Current gender identity: male What is your relationship status?: How often do you talk on the phone with friends or family?: three or more times per week How often do you get together with friends or relatives?: decline to answer How often do you attend restorationism or rastafari services?: decline to answer Do you belong to any clubs or organized social groups?: no Panel score (0-1 are the most socially isolated patients): 2 What type of physical activity do you participate in: bicycling Duration: < 15 minutes/day Frequency: 5-6 times per week Rufina/Druze: none Special rufina needs: No Seatbelt use: always Drive intox or ride w/intox interstate bus driver: No Do you feel safe at home: Yes Do you feel safe in your relationship?: Yes Exam Narrative Exam Narrative: He is sitting up at the bedside. He does not appear septic or toxic His vital signs are documented elsewhere The Lopez catheter is in place and is draining yellow-tinged urine He is awake and alert I reviewed his CT of the abdomen and pelvis along with his renal ultrasound. The CT was done prior to placement of his Lopez catheter. He had no hydronephrosis. The ultrasound was done after the catheter was placed. Results Last Vital Signs Temp 36.5 C 07/08/23 07:46 Pulse 62 07/08/23 07:46 Resp 16 07/08/23 07:46 BP 118/56 L 07/08/23 07:46 Pulse Ox 92 11/13/23 07:46 Labs 07/08/23 06:35 07/08/23 06:35 Labs: Laboratory Results - last 24 hr 07/05/23 07/05/23 07/08/23 05:00 19:00 06:35 WBC 4.96 RBC 2.94 L Hgb 8.6 L Hct 26.9 L MCV 92 MCH 29.3 MCHC 32.0 RDW 14.1 Plt Count 210 MPV 10.0 Immature Gran % 0.2 Neutrophils % 52.0 Lymphocytes % 35.5 Monocytes % 7.1 Eosinophils % 4.6 Basophils % 0.6 Nucleated RBC % 0.0 Absolute Neutrophils 2.58 Absolute Lymphocytes 1.76 Absolute Monocytes 0.35 Absolute Eosinophils 0.23 Absolute Basophils 0.03 Sodium 141 Potassium 3.9 Chloride 105 Carbon Dioxide 27.2 Anion Gap 8.8 BUN 25 H Creatinine 1.2 Est GFR (CKD-EPI 2020) 60.75 Glucose 100 Calcium 9.1 Transferrin 165 L Total Bilirubin 0.2 AST 32 ALT 27 Alkaline Phosphatase 61 C-Reactive Protein 3.69 H Total Protein 6.1 L Albumin 2.3 L Procalcitonin 3.0 Urine Legionella Ag Negative
[2023-07-08 15:45] VITALS: BP 105/61; PULSE 60; RESP 18; TEMP 36.8; O2SAT 95
[2023-07-08] MEDS: Bimatoprost 0.01% 2.5 ML BTL 1 ML OS (21:20)
[2023-07-08] MEDS: Enoxaparin 40 MG/0.4 ML SYR SC (21:22)
[2023-07-08] MEDS: rOPINIRole 1 MG TAB PO (21:22)
[2023-07-08] MEDS: Tamsulosin 0.4 MG CAPCR PO (21:22)
[2023-07-08] MEDS: diazePAM 5 MG TAB PO (21:22)
[2023-07-08] MEDS: Lidocaine Patch Removal 1 EACH TP (21:37)
[2023-07-08 22:50] VITALS: BP 98/60; PULSE 60; RESP 16; TEMP 36.3; O2SAT 93
[2023-07-08 23:54] LABS: Streptococcus Pneumoniae Ag, U Negative (Negative)
[2023-07-09] MEDS: HYDROmorphone 2 MG/ML SYR 0.5 MG IVP (00:48)
[2023-07-09] MEDS: oxyCODONE 5 MG TAB PO ×2 (04:19→21:00)
[2023-07-09 04:30] VITALS: BP 132/65; PULSE 70; RESP 16; TEMP 36.3; O2SAT 92
[2023-07-09] MEDS: cefTRIAXone 2 GM/50 ML BAG IVPB (05:32)
[2023-07-09 07:57] VITALS: BP 152/66; PULSE 76; RESP 17; TEMP 36.9; O2SAT 92
[2023-07-09] MEDS: Acetaminophen 500 MG TAB 1000 MG PO ×3 (08:50→20:11)
[2023-07-09] MEDS: Ascorbic Acid 500 MG TAB 1000 MG PO (08:51)
[2023-07-09] MEDS: Finasteride 5 MG TAB PO (08:51)
[2023-07-09] MEDS: Rosuvastatin 10 MG TAB PO (08:52)
[2023-07-09] MEDS: Clopidogrel 75 MG TAB PO (08:52)
[2023-07-09] MEDS: Cefpodoxime 200 MG TAB PO ×2 (08:52→20:10)
[2023-07-09] MEDS: Famotidine 20 MG TAB PO (08:53)
[2023-07-09] MEDS: Allopurinol 100 MG TAB 50 MG PO (08:53)
[2023-07-09] MEDS: Cholecalciferol (Vitamin D3) 400 UNIT TAB PO (08:53)
[2023-07-09] MEDS: Baclofen 10 MG TAB PO ×3 (08:54→20:10)
[2023-07-09] MEDS: Lidocaine 5% Patch 1 PATCH TD (09:01)
--- NOTE | 2023-07-09 10:27 | CMPROGNOTE_ITS ---
Date of service: 07/09/23 Time of Service: 10:27 Care Management Progress Note Progress Note Text Progress Note Text: S/O:Fab was sitting up in a chair when CM met with him. His Inessa was visiting at the time and participated in the conversation. Fab informed CM that he felt a little discouraged because he was unable to walk with PT today. He explained that his feet just would not move; he could not lift them. A discussion ensued about discharge plans and the possibility of going to a SNF for short term rehab prior to returning home. Fab spent a lot of time at [facility] in [place], [place] following spine surgery and was not excited about going to rehab again. Inessa pointed out that at this time, with his mobility issues, she did not feel she could safely care for him at home alone. Fab agreed to have referrals sent to [place], [facility], which was completed by CM this afternoon. PT worked with Fab again later in the day and he did better, however they are still recommending rehab. A: Rafael is an 83 year old man admitted on 07/04/23 with sepsis P:Anticipate Fab will either be discharged home when medically cleared, or go to a long-term facility for short term rehab. If he returns home he will likely benefit from additional services at home. He will follow up with community providers and plan of care and transport with family. CM will continue to support Fab and his discharge planning needs.
--- NOTE | 2023-07-09 11:42 | PTTR_ITS ---
Date of service: 07/09/23 Time of Service: 10:59 PT Notes Visit Reasons: Sepsis Inpatient Physical Therapy Treatment Note [facility] Date: 07/09/23 PRECAUTIONS: Fall, standard, activity as tolerated. SUBJECTIVE: Patient reports feeling stiff, reports this is normal for him after he has been resting for a while. Typically limbers up as his activity increases. OBJECTIVE: Sitting up in recliner with feet down, agreeable to therapy. ? PAIN: None reported. VITALS: monitored by nursing staff. Therapeutic Activities (26805e3): Direct one-on-one instruction in dynamic activities to improve functional performance. ? BED MOBILITY/TRANSFERS? Rolling L/R: not assessed Supine-sit: not assessed ? Sit-supine: not assessed ? Sit-stand: min-mod assist. Min from high recliner. Mod from low wheelchair x3, min x2. ? Stand-sit: Mod assist with verbal cues to prevent flops. ? Recliner-Wheelchair: CGA. Patient able to pivot independently. Wheelchair-Recliner: CGA. Patient able to pivot independently. Provided skilled cues and instruction on performance and technique throughout. Gait Training (39127s0): Direct one-on-one instruction and skilled instruction in: [] employing an assistive device [] modified weight-bearing status [x] movement sequencing [] turning and movement with proper form [x] Provided verbal cues for equipment management and technique [x] Provided instruction in gait pattern [] Patient education regarding pacing and breathing techniques to maximize activity tolerance? GAIT? Assistive Device: FWW. Ambulation attempted in hospital socks and in patient's own socks and sneakers. Toe up assist tied from [employer] after consulting with DPT Coby De Luna.? Weight bearing: full Assist: CGA, Toe up assist on left ? Distance:? avg 4 steps, each step being less than the length of one foot. Stood and attempted ambulation x6. Foot drop appears to be substantially limi ting patient's ability to advance his feet. ? Deviation: Extreme short step length, bilateral foot drop L>R. Weakness of hip flexors, abductors, extensors as well as knee flexors and extensors. ? Therapeutic Exercises (54431j1): Direct one-on-one instruction in therapeutic exercises to develop strength, endurance, range of motion and flexibility. ? Exercises: * ankle pumps x10 * LAQ's x10 * seated marching x10 * sit to stands x6 with verbal cues for form, limb placement, Provided skilled instruction in proper exercise performance Provided skilled manual cues to facilitate proper muscle recruitment and/or form. Neuromuscular Re-education ([id number]): Activities that facilitate re-education of movement balance, posture, coordination, and proprioception or kinesthetic sense, requiring skilled tactile and verbal cues ? Exercises/techniques: * quick stretch applied to TA x10 to facilitate muscle activation * tapping applied to TA during muliple ankle pumps to facilitate muscle activation. * Patient coached to activate TA bilaterally in order to facilitate increased muscle activation. ASSESSMENT:? Patient expresses frustration at his limitations, repeatedly stating I used to be able to walk 24, 25 feet easily, even with the foot drop. PLAN: Discussed option of AFO with patient, , DPT Coby De Luna, and Dr Morales. Will proceed with left AFO trial this afternoon or tomorrow morning. Reminded patient and of tapping Neuro Re-ed technique from yesterday, encouraged them to practice toe raises before afternoon PT session. TREATMENT CODE/TIME: 42 minutes beginning at 10:59
--- NOTE | 2023-07-09 15:40 | PGE_ITS ---
Date of Service Date of service: 07/09/23 Time of Service: 15:40 Assessment and Plan Assessment and plan (1) Sepsis: Status: Acute Assessment and plan: -stable and responding to antibiotics; now on high dose Rocephin 2 gm IV q12h -had been on meropenem but urine culture and blood culture grew Klebsiella which was resistant to ampicillin but otherwise was sensitive to all antibiotics tested. -Repeat blood culture taken 07/07 show no growth -IV antibiotics discontinued, has since been transitioned to cefpodoxime -f/u P.T. consult to work on his strength and ambulatory status Qualifiers: Acute renal failure type: unspecified Sepsis acute organ dysfunction status: with acute organ dysfunction Sepsis type: sepsis due to unspecified organism Severe sepsis acute organ dysfunction type: acute renal failure Severe sepsis shock status: with septic shock Qualified Code(s): A41.9 - Sepsis, unspecified organism; R65.21 - Severe sepsis with septic shock; N17.9 - Acute kidney failure, unspecified (2) Renal abscess, left: Status: Suspected Assessment and plan: -initial CT reading was questionable abscess versus mass. -No mass seen on renal U.S. -previous physician discussion yesterday w/ Dr. De La O, urology from [facility] [facility] who reviewed the CT scans and did not find any abscess. He did indicate that this showed pyelonephritis and receommended follow up study in 2 weeks but repeat sooner if clincal deterioration. -Previous physician had asked Urology, appreciate recs; voiding trial after discharge, but prior to completion of oral antibiotic regimen -Patient has lower urinary tract obstructive symptoms from BPH. He is on Flomax and added Proscar to his regimen. (3) Pyelonephritis: Status: Acute Assessment and plan: -as above (4) Acute UTI (urinary tract infection): Status: Acute Assessment and plan: -As above (5) Urinary retention: Status: Chronic Assessment and plan: -secondary to BPH, already on flomax which has been restarted. -Proscar added. continue rendon catheter for now. -see above (6) Community acquired pneumonia: Status: Acute Assessment and plan: -now on ce -add DuoNeb, IS and acapella. check sputum cultures if able to obtain, monitor oxygen needs and daily inflammatory markers. -encourage mobilization. -will consult w/ P.T. to work on his deconditioning. Qualifiers: Laterality: right Lung location: upper lobe of lung Qualified Code(s): J18.9 - Pneumonia, unspecified organism (7) Elevated troponin I level: Status: Acute Assessment and plan: -Type II demand ischemia secondary to hypotension and sepsis. -Normal LV and RV function per echocardiogram. (8) MANJU (acute kidney injury): Status: Acute Assessment and plan: -Secondary to hypertension sepsis with slight increase in creatinine yesterday d/t contrast studies but now improving. -Good urine output, over 2 liters per day. continue to monitor U.O. and daily labs. (9) Hypomagnesemia: Status: Acute Assessment and plan: -Replete and monitor (10) Peripheral arterial occlusive disease: Assessment and plan: -s/p bilateral iliofemoral stents, remains on Plavix chronically. aspirin was added per ED discussion w/ [facility] cardiology. -kept the aspirin but feel that his troponin leak was d/t hypotension and sepsis. -However he may have occult CAD given his hx of PAD. -have asked him about any heart cath during his workup in [place] in 1999 when his pacer was placed and he does not recall any coronary catheterization. (11) Anemia: Status: Chronic Assessment and plan: -prior remote hx of iron deficiency anemia but patient denies any recent hx of anemia. -he denies any melena or hematochezia. -havel put him on PPI and obtain anemia workup AM 11. -Stool was negative for occult blood per rectal exam on admission exam (12) DNR no code (do not resuscitate): Status: Chronic Assessment and plan: -DNR/DNI per previous physicians discussion w/ the patient (13) DVT prophylaxis: Status: Acute Assessment and plan: -enoxaparin SC Subjective Subjective Interval history since last seen: Patient again states that he is feeling well and continues to look forward to work with physical therapy. However after discussion with the patient and his , he seems resistant to the possibility of discharge to short-term rehab, however he remains very motivated to continue to work with physical therapy. Exam Narrative Exam Narrative: Well appearing older gentleman sitting up in the chair in no acute distress, AOx4, heart RRR, lungs CTAB, abdomen soft, non-tender, non-distended and without CVA tenderness, continued weakness in bilateral upper and lower extremities that are worse in the lower extremities Objective Last Vital Signs Temp 98.4 F 07/09/23 07:57 Pulse 76 07/09/23 07:57 Resp 17 07/09/23 07:57 BP 152/66 H 07/09/23 07:57 Pulse Ox 92 07/09/23 07:57 Laboratory Results - last 24 hr 07/05/23 19:00 Ur Strep pneumoniae Ag Negative PAWSS Have you Been Recently Intoxicated or Drunk Within the Last 30 days?: No Have you Ever Experienced Previous Episodes of Alcohol Withdrawal?: No Have you ever Experienced Withdrawal Seizures?: No Have you ever Experienced Delirium Tremens(DT)s?: No Have you ever undergone Alcohol Rehabilitation Treatment (i.e, inpt ot outpatient treatment programs)?: No Have you ever Experienced Blackouts?: No Have you ever Combined Alcohol with other Downers within the last 90 days?: No Have you ever Combined Alcohol with any other Substance of Abuse during the last 90 days?: No Positive Blood Alcohol level on Presentation? [PCS.BAL]: No Evidence of Increased Autonomic Activity (i.e. HR>120, tremor, sweating, agitation, nausea)?: No Result: 0 Time Spent with Patient Time Spent with Patient: >50 minutes Time was spent: preparing to see the patient(eg.review tests), obtaining and/or reviewing separately otained hiistory, ordering medications,tests, procedures, referring, communicating with other health health care specialist, indepentently interpreting results, counseling the patient and care coordination
--- NOTE | 2023-07-09 16:23 | CHAPLAIN ---
Fab was up in the chair and had been looking at newspaper articles when I visited. His called while I was there and I held the phone for Fab as he wasn't able to hold the receive to his ear by himself. His , Inessa, was reporting measurement that the PT staff had asked her to get. I wrote them on the whiteboard. Fab said he didn't have a need for a visit from a spectacle truer. I let him know I'm available if he would just like company at some point.
--- NOTE | 2023-07-09 16:40 | OTIE_ITS ---
Occupational Therapy Notes Inpatient Occupational Therapy Evaluation Date: 07/09/23 Referring Doctor:Dr. Gutierrez OT Orders: Non urgent Precautions: Fall, Standard, DNR/SNI PATIENT PROFILE/ADMITTING DIAGNOSIS: Pt presented to ED 07/04/2023 after 2 falls at home. 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 S/P cervical C1-2 laminecotomy 04/11/2023 at [facility] [facility] rehab until 06/02/23 and has been attending outpatient PT prior at [facility]. CT scan shows hardware in place no fx, and multiple fusions of c-spine. He was scheduled for outpatient Occupational Therapy but was unable to attend d/t being admitted. OT will assess pts functional limitations and assessment of his UE at this time. Past Medical History: All Active Problems (Updated 07/04/23 @ 19:41 by Wil Gutierrez MD) DVT prophylaxis (Acute) DNR no code (do not resuscitate) (Chronic) Sepsis (Acute) Hypomagnesemia (Acute) Anemia (Chronic) Acute non-ST elevation myocardial infarction (NSTEMI) (Acute) MANJU (acute kidney injury) (Acute) Acute UTI (urinary tract infection) (Acute) History of prostate cancer (Acute) Leg muscle spasm (Acute) Low blood pressure (Acute) Weakness (Chronic) Diverticulosis (Chronic) Wrist pain, left (Acute) ? carpal tunnel ? goutExcessive consumption of ethanol (Chronic 03/18/18) Coronary artery disease (Chronic 03/18/18) Cervical myelopathy (Acute 03/18/18) Medical History (Updated 07/04/23 @ 19:41 by Wil Gutierrez MD) Hx of chest pain Had negative stress test (see [place] [facility] records)Hyperlipidemia Peripheral arterial occlusive disease Hypertension RBBB Sinus bradycardia Surgical History (Updated 07/04/23 @ 18:51 by Wil Gutierrez MD) H/O spinal fusion multiple spinal surgeries including lumbar, and cervical spine, last one at [facility] [facility] March 2023Hx of spinal surgery H/O angioplasty Has a stent placed in one leg (pt. doesn't remember which leg) Social History/Home Situation: Pt lives in a private home with his . He notes that his does (A) him with his ADLs d/t a decline in his hand function. He has recently been able to start feeding himself with his (R) UE. He has better mobility in his (R) digits compared to his (L). He does have braces for his (L) UE which he notes that he uses nocturnally. He also has balls for his hand. His prior rehab for his hands include rehab facility care and HH OT when he got home. Equipment owned/DME: (L) hand braces, balls for digit extension, thera putty to perform strengthening SUBJECTIVE: Pt was sitting in chair when OT arrived. He states that he has been trying to use his hands more. OBJECTIVE: General Observation: Pleasant, IV in (R) dorsal hand, (B) hand contracture (L) > (R) Mental Status: A&Ox4 Pain: pain in LE and neck at times ROM: RUE Limited ROM in (B) UE including shoulder flexion to ~90*, elbow WFL, wrist extension WFL, digits actively can flex but cannot actively extend at this time. L UE Limited ROM in (B) UE including shoulder flexion to ~90*, elbow WFL, wrist extension WFL, digits actively can flex but cannot actively extend at this time. STRENGTH: RUE 3+/5 engineering instructor strength LUE 3+/5 engineering instructor strength FUNCTIONAL MOBILITY/ADLS: Transfers Please refer to Physical Therapy notes BALANCE: Static sitting Normal Dynamic Sitting Normal Manual Therapy [id number]: Todays session OT assessed pts (B) hand function which is limited at this time. He notes that he has no pain. OT performed an IASTM with down regulation on the dorsal digits and throughout the (B) hands. Then performed AP mobs to all digits at the MP, IP and DIP. OT fit pt with a dorsal resting hand splint for digit extension and educated and trained pt in exercises for his (B) UE to perform throughout the day for mobility. Pt is receptive to this and OT educated nursing on performance as well. SPECIAL TESTS: Daily Activity Limitations Standardized Measure [facility] AM -PAC ?6 clicks? Daily Activity Inpatient Short Form: Raw score: 9 Standardized score: 25.33 CMS score: 79.59% INFORMED CONSENT/EDUCATION: Pt instructed in purpose of OT Consult and plan of care. 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 S/P cervical C1-2 laminecotomy 04/11/2023 at [facility] [facility]. Patient presents with clinical signs and symptoms consistent with dx, as demonstrated by the following impairment level findings/functional limitations: [] Patient is assessed as a Moderate 18464 complexity based on the following: History: see above Examination: see functional limitations as noted above Presentation: evolving Decision Making: moderate GOALS Goals x1 week 1. Oral hygiene min (A) set up and then (I) 2. Dressing min (A) UE, mod (I) LE 3. Bathing (I) UE, mod (I) LE 4. Toileting mod (A) 5. Eating (I) 6. Pt will be able to wear his resting hand splint nocturnally without increased pain PLAN OF CARE/TREATMENT PLAN: 1x/day, 5 days/ week x 1week Initiate Occupational Therapy Services for bathing, dressing, grooming, toileting, eating, transfer training. DISCHARGE RECOMMENDATIONS Based on pts current level of function and decline in pts functional mobility OT does recommend SNF vs. PT. For his UE OT recommends outpatient OT for continued rehabilitation and hand function of (B) UE. TREATMENT TIME/MINUTES/CODES 17539, [id number], 60 minutes Radha Arechiga OTR/[facility] [place], [place]
[2023-07-09] MEDS: Enoxaparin 40 MG/0.4 ML SYR SC (20:10)
[2023-07-09] MEDS: Lidocaine Patch Removal 1 EACH TP (20:11)
[2023-07-09] MEDS: Bimatoprost 0.01% 2.5 ML BTL 1 ML OS (20:11)
[2023-07-09 20:50] VITALS: BP 165/83; PULSE 70; RESP 16; TEMP 36.5; O2SAT 95
[2023-07-09] MEDS: rOPINIRole 1 MG TAB PO (21:00)
[2023-07-09] MEDS: diazePAM 5 MG TAB PO (21:00)
[2023-07-09] MEDS: Tamsulosin 0.4 MG CAPCR PO (21:00)
[2023-07-09 23:06] VITALS: BP 105/63; PULSE 95; RESP 16; O2SAT 96
[2023-07-10 02:22] VITALS: BP 144/64; PULSE 62; RESP 18; TEMP 36.1; O2SAT 94
[2023-07-10] MEDS: oxyCODONE 5 MG TAB PO ×2 (02:23→21:07)
[2023-07-10 06:56] LABS: Absolute Monocyte Count 0.27 10^3/uL (0.1-0.8); HCT 30.8 % (40.0-50.0); HGB 9.8 g/dL (13.5-17.5); MCH 29.3 pg (27.0-33.0); MCHC 31.8 % (32.0-36.0); MCV 92 fL (80-95); MPV 10.1 fL (8.0-11.0); Platelet Count 321 10^3/uL (130-400); RBC 3.35 10^6/uL (4.36-5.78); RDW 13.9 % (11.8-14.1); RDW-SD 46.4 fL; WBC 4.44 10^3/uL (4.4-10.8)
[2023-07-10 07:21] LABS: Absolute Eosinophil Count 0.31 10^3/uL (0.0-0.7); Absolute Neutrophil Count 1.86 10^3/uL (1.2-6.7); Anisocytosis 1+; Diff Comment Manual Differential
[2023-07-10] MEDS: Clopidogrel 75 MG TAB PO (08:06)
[2023-07-10] MEDS: Cholecalciferol (Vitamin D3) 400 UNIT TAB PO (08:06)
[2023-07-10] MEDS: Rosuvastatin 10 MG TAB PO (08:06)
[2023-07-10] MEDS: Finasteride 5 MG TAB PO (08:07)
[2023-07-10] MEDS: Allopurinol 100 MG TAB 50 MG PO (08:07)
[2023-07-10] MEDS: Famotidine 20 MG TAB PO (08:07)
[2023-07-10] MEDS: Ascorbic Acid 500 MG TAB 1000 MG PO (08:07)
[2023-07-10] MEDS: Cefpodoxime 200 MG TAB PO ×2 (08:07→20:11)
[2023-07-10] MEDS: Baclofen 10 MG TAB PO ×3 (08:07→20:11)
[2023-07-10] MEDS: Acetaminophen 500 MG TAB 1000 MG PO ×3 (08:07→20:11)
[2023-07-10 08:08] VITALS: BP 115/62; PULSE 62; RESP 15; TEMP 36.2; O2SAT 93
[2023-07-10] MEDS: Lidocaine 5% Patch 1 PATCH TD (08:08)
--- NOTE | 2023-07-10 08:50 | CMPROGNOTE_ITS ---
Date of service: 07/10/23 Time of Service: 08:50 Care Management Progress Note Progress Note Text Progress Note Text: S/O:Fab was sitting up in a chair when CM met with him. He engaged well with CM but seemed a bit discouraged. He talked a lot about his life with Prisca and all of the places they have visited and how good their life has been. He acknowledged that it has been very hard for him to be so dependent. He is currently unable to do much for himself and admitted that the quality of his life is not great. He emphasized that he is not giving up however. CM talked a little about Palliative Care and explained the program to him. He agreed to a Palliative care consult with his present. Fab remains reluctant to go to rehab. He verbalized hoping that he would be able to get strong enough to be able to transfer with just 1 assist as he was before he was admitted. referrals wewre sent to several facilities but no bed offer has been received yet. A: Rafael is an 83 year old man admitted on 07/04/23 with sepsis P:Anticipate Fab will either be discharged home when medically cleared, or go to a correction facility for short term rehab. If he returns home he will likely benefit from additional services at home. He will follow up with c ommunity providers and plan of care and transport with family. CM will continue to support Fab and his discharge planning needs.
--- NOTE | 2023-07-10 09:34 | OT.INTREAT ---
Occupational Therapy Notes Occupational Therapy Inpatient Treatment Note Date: 07/10/23 PRECAUTIONS: Fall, Standard, DNR/DNI SUBJECTIVE: Pt states that he tolerated his brace from 8-10 last night. He notes that his functional (I) with his (R) hand today is more limited. It does appear that his hand is more swollen which OT does feel is a contributory factor in his (I) today. OBJECTIVE: PAIN:no c.o pain during OT session. Manual Therapy [id number]: OT performed AP mobs to pts digits at the MP, IP and DIP joints (B) for all digits. Then with use of contrast baths, OT worked pts hand for reduction in swelling of the (L) UE. Unable to perform this on the (R) d/t IV access and OT and pt went over HEP and ROM Exercises. OT then placed pts (L) UE on rolled towel for passive stretch into extension which pt tolerated well and OT will continue to work on pts gross and fine motor control of his (B) UE. EATING: Pt is having difficulty grasping his utensils today with his (R) hand. OT asked Kitchen staff if they can bring pt a handled utensil for pt to try during lunch. This may (A) him with increased (I). ASSESSMENT/PLAN: Plan per evaluation and POC. OT will work on edema and functional ROM with strengthening as symptoms allow. TREATMENT CODES/TIME: [id number], 35 minutes Radha Arechiga OTR/[facility] [place], [place]
[2023-07-10 11:57] VITALS: BP 146/72; PULSE 59; RESP 20; TEMP 36.9; O2SAT 89
[2023-07-10 15:04] VITALS: BP 130/66; PULSE 57; RESP 22; TEMP 36.3; O2SAT 98
--- NOTE | 2023-07-10 16:22 | PGE_ITS ---
Date of Service Date of service: 07/10/23 Time of Service: 16:22 Assessment and Plan Assessment and plan (1) Sepsis: Status: Acute Assessment and plan: -stable and responding to antibiotics; now on high dose Rocephin 2 gm IV q12h -had been on meropenem but urine culture and blood culture grew Klebsiella which was resistant to ampicillin but otherwise was sensitive to all antibiotics tested. -Repeat blood culture taken 07/07 show no growth -IV antibiotics discontinued, has since been transitioned to cefpodoxime -f/u P.T. consult to work on his strength and ambulatory status Qualifiers: Sepsis type: sepsis due to unspecified organism Sepsis acute organ dy sfunction status: with acute organ dysfunction Severe sepsis acute organ dysfunction type: acute renal failure Acute renal failure type: unspecified Severe sepsis shock status: with septic shock Qualified Code(s): A41.9 - Sepsis, unspecified organism; R65.21 - Severe sepsis with septic shock; N17.9 - Acute kidney failure, unspecified (2) Renal abscess, left: Status: Suspected Assessment and plan: -initial CT reading was questionable abscess versus mass. -No mass seen on renal U.S. -previous physician discussion yesterday w/ Dr. De La O, urology from [facility] who reviewed the CT scans and did not find any abscess. He did indicate that this showed pyelonephritis and receommended follow up study in 2 weeks but repeat sooner if clincal deterioration. -Previous physician had asked Urology, appreciate recs; voiding trial after discharge, but prior to completion of oral antibiotic regimen -Patient has lower urinary tract obstructive symptoms from BPH. He is on Flomax and added Proscar to his regimen. (3) Pyelonephritis: Status: Acute Assessment and plan: -as above (4) Acute UTI (urinary tract infection): Status: Acute Assessment and plan: -As above (5) Urinary retention: Status: Chronic Assessment and plan: -secondary to BPH, already on flomax which has been restarted. -Proscar added. continue rendon catheter for now. -see above (6) Community acquired pneumonia: Status: Acute Assessment and plan: -now on ce -add DuoNeb, IS and acapella. check sputum cultures if able to obtain, monitor oxygen needs and daily inflammatory markers. -encourage mobilization. -will consult w/ P.T. to work on his deconditioning. Qualifiers: Laterality: right Lung location: upper lobe of lung Qualified Code(s): J18.9 - Pneumonia, unspecified organism (7) Elevated troponin I level: Status: Acute Assessment and plan: -Type II demand ischemia secondary to hypotension and sepsis. -Normal LV and RV function per echocardiogram. (8) MANJU (acute kidney injury): Status: Acute Assessment and plan: -Secondary to hypertension sepsis with slight increase in creatinine yesterday d/t contrast studies but now improving. -Good urine output, over 2 liters per day. continue to monitor U.O. and daily labs. (9) Hypomagnesemia: Status: Acute Assessment and plan: -Replete and monitor (10) Peripheral arterial occlusive disease: Assessment and plan: -s/p bilateral iliofemoral stents, remains on Plavix chronically. aspirin was added per ED discussion w/ [facility] cardiology. -kept the aspirin but feel that his troponin leak was d/t hypotension and sepsis. -However he may have occult CAD given his hx of PAD. -have asked him about any heart cath during his workup in [place] in 1999 when his pacer was placed and he does not recall any coronary catheterization. (11) Anemia: Status: Chronic Assessment and plan: -prior remote hx of iron deficiency anemia but patient denies any recent hx of anemia. -he denies any melena or hematochezia. -havel put him on PPI and obtain anemia workup AM 11. -Stool was negative for occult blood per rectal exam on admission exam (12) DNR no code (do not resuscitate): Status: Chronic Assessment and plan: -DNR/DNI per previous physicians discussion w/ the patient (13) DVT prophylaxis: Status: Acute Assessment and plan: -enoxaparin SC Subjective Subjective Interval history since last seen: Patient is happy to hear that at this point he is medically stable. However, he was working with physical therapy and appears visibly frustrated with his inability to continue to work. However, it was mentioned to the patient that he worked extremely hard earlier this morning and his body is likely tired and sore and that it is best for him to rest. However, the patient is highly motivated to continue working and is discouraged by his inability to do so at this time. Exam Narrative Exam Narrative: Well appearing older gentleman sitting up in the chair in no acute distress, AOx4, heart RRR, lungs CTAB, abdomen soft, non-tender, non-distended and without CVA tenderness, continued weakness in bilateral upper and lower extremities that are worse in the lower extremities Objective Last Vital Signs Temp 97.3 F L 07/10/23 15:04 Pulse 57 L 07/10/23 15:04 Resp 22 07/10/23 15:04 BP 130/66 07/10/23 15:04 Pulse Ox 98 07/10/23 15:04 Laboratory Results - last 24 hr 07/10/23 06:20 WBC 4.44 RBC 3.35 L Hgb 9.8 L Hct 30.8 L MCV 92 MCH 29.3 MCHC 31.8 L RDW 13.9 Plt Count 321 D MPV 10.1 Immature Gran % See Differential Neutrophils % 42.0 Lymphocytes % 45.0 Monocytes % 6.0 Eosinophils % 7.0 Basophils % 0.0 Nucleated RBC % 0.0 Absolute Neutrophils 1.86 Absolute Lymphocytes 2.00 Absolute Monocytes 0.27 Absolute Eosinophils 0.31 Absolute Basophils 0.00 RBC Morphology See Below Anisocytosis 1+ PAWSS Have you Been Recently Intoxicated or Drunk Within the Last 30 days?: No Have you Ever Experienced Previous Episodes of Alcohol Withdrawal?: No Have you ever Experienced Withdrawal Seizures?: No Have you ever Experienced Delirium Tremens(DT)s?: No Have you ever undergone Alcohol Rehabilitation Treatment (i.e, inpt ot outpatient treatment programs)?: No Have you ever Experienced Blackouts?: No Have you ever Combined Alcohol with other Downers within the last 90 days?: No Have you ever Combined Alcohol with any other Substance of Abuse during the last 90 days?: No Positive Blood Alcohol level on Presentation? [PCS.BAL]: No Evidence of Increased Autonomic Activity (i.e. HR>120, tremor, sweating, agitation, nausea)?: No Result: 0 Time Spent with Patient Time Spent with Patient: >50 minutes Time was spent: preparing to see the patient(eg.review tests), obtaining and/or reviewing separately otained hiistory, ordering medications,tests, procedures, referring, communicating with other health child care provider, indepentently interpreting results, counseling the patient and care coordination
--- NOTE | 2023-07-10 17:08 | PTTR_ITS ---
Date of service: 07/10/23 Time of Service: 10:12 PT Notes Visit Reasons: Sepsis Inpatient Physical Therapy Treatment Note [facility] Date: 07/10/23 PRECAUTIONS: Fall, standard, activity as tolerated. SUBJECTIVE: Patient reports feeling pretty ok. OBJECTIVE: Sitting up in recliner, agreeable to therapy. ? PAIN: none reported VITALS: monitored by nursing staff Therapeutic Activities ([id number]): Direct one-on-one instruction in dynamic activities to improve functional performance. ? BED MOBILITY/TRANSFERS? Rolling L/R: not assessed Supine-sit: not assessed ? Sit-supine: not assessed? Sit-stand x6: CGA to mod assist. Verbal cues for limb placement and activity sequencing.? Stand-sit x6: Min to Mod assist. Verbal cues for limb placement and activity sequencing. Tactile facilitation of appropriate muscle engagement.?Bed-Chair x1: min to mod assist?- patient's ability fluctuates ? Chair-bed x1: min to mod assist - patient's ability fluctuates. Provided skilled cues and instruction on performance and technique throughout. Gait Training ([id number]): Direct one-on-one instruction and skilled instruction in: [x] employing an assistive device [] modified weight-bearing status [x] movement sequencing [x] turning and movement with proper form [x] Provided verbal cues for equipment management and technique [x] Provided instruction in gait pattern [x] Patient education regarding pacing and breathing techniques to maximize activity tolerance? GAIT? Assistive Device: FWW? Weight bearing: full Assist: CGA to mod assist at gait belt for balance as well as assistance shifting foot position for optimal gait participation? Distance:? 16 feet, with extended seated rests at 6 feet and 12 feet ? Deviation: Kyphotic posture, hinged forward at the hips, feet tend to drift too close together which worsens patient's already poor balance, bilateral AFO's in place for reduction of foot drop, extremely weak hip flexors / extensors and knee flexors / extensors results in dragging or sliding feet instead of picking them up. Short step length of < or = length of one foot. At end of treatment session, patient is unable to unweight either foot enough to move it at all. ? Neuromuscular Re-education ([id number]): Activities that facilitate re-education of movement balance, posture, coordination, and proprioception or kinesthetic sense, requiring skilled tactile and verbal cues ? Exercises/techniques: * Quick stretch applied to TA to facilitate dorsiflexion * tapping applied to TA to facilitate dorsiflexion * Tactile stimulation to upregulate posterior chain in order to improve posture, balance. ASSESSMENT:? Patient reports extreme frustration at the end of morning treatment session. Feels as though he is backsliding in spite of covering 4x the distance he was able to cover yesterday, with half as many rests. AFTERNOON: Rebeca woo reports extreme fatigue all day since the morning's session, does not believe that he will be able to stand up. Is unable to advance either foot. PLAN: Continue global strengthening per plan of care within patient tolerance until patient is medically cleared for discharge. TREATMENT CODE/TIME: 65 minutes beginning at 10:12 and 35 minutes beginning at 15:51 for a total of 100 minutes today.
[2023-07-10] MEDS: Lidocaine Patch Removal 1 EACH TP (20:11)
[2023-07-10] MEDS: Bimatoprost 0.01% 2.5 ML BTL 1 ML OS (20:11)
[2023-07-10] MEDS: Enoxaparin 40 MG/0.4 ML SYR SC (20:11)
[2023-07-10 21:04] VITALS: BP 169/70; PULSE 63; RESP 18; TEMP 37.1; O2SAT 95
[2023-07-10] MEDS: rOPINIRole 1 MG TAB PO (21:07)
[2023-07-10] MEDS: diazePAM 5 MG TAB PO (21:07)
[2023-07-10] MEDS: Tamsulosin 0.4 MG CAPCR PO (21:07)
[2023-07-10 23:37] VITALS: BP 107/50; PULSE 60; RESP 18; TEMP 36.6; O2SAT 93
[2023-07-11 04:27] VITALS: BP 110/53; PULSE 60; RESP 18; TEMP 36.8; O2SAT 92
[2023-07-11 07:30] VITALS: BP 131/63; PULSE 61; RESP 17; TEMP 37.1; O2SAT 92
[2023-07-11] MEDS: Baclofen 10 MG TAB PO ×3 (08:05→20:33)
[2023-07-11] MEDS: Finasteride 5 MG TAB PO (08:05)
[2023-07-11] MEDS: Rosuvastatin 10 MG TAB PO (08:06)
[2023-07-11] MEDS: Allopurinol 100 MG TAB 50 MG PO (08:06)
[2023-07-11] MEDS: Clopidogrel 75 MG TAB PO (08:06)
[2023-07-11] MEDS: Famotidine 20 MG TAB PO (08:07)
[2023-07-11] MEDS: Ascorbic Acid 500 MG TAB 1000 MG PO (08:07)
[2023-07-11] MEDS: Cefpodoxime 200 MG TAB PO ×2 (08:09→20:33)
[2023-07-11] MEDS: Acetaminophen 500 MG TAB 1000 MG PO ×3 (08:09→20:33)
[2023-07-11] MEDS: Cholecalciferol (Vitamin D3) 400 UNIT TAB PO (08:09)
[2023-07-11] MEDS: Normal Saline Flush 10 ML SYR IVP (08:10)
[2023-07-11] MEDS: Lidocaine 5% Patch 1 PATCH TD (08:11)
[2023-07-11 11:28] VITALS: BP 125/67; PULSE 62; RESP 18; TEMP 36.3; O2SAT 99
--- NOTE | 2023-07-11 13:40 | OT.INTREAT ---
Occupational Therapy Notes Occupational Therapy Inpatient Treatment Note Date: 07/11/23 PRECAUTIONS: Fall, Standard, DNR/DNI SUBJECTIVE: Pt states that he tolerated his brace for a couple hours last night. He notes that he is feeling better today. His hand looks less swollen which allows relief and increased (I) in his ADL/IADL Routines. OBJECTIVE: PAIN:no c.o pain during OT session. Manual Therapy [id number]: OT performed AP mobs to pts digits at the MP, IP and DIP joints (B) for all digits. OT worked pts hand for reduction in swelling of the (L) UE utilizing retrograde mobilization. Unable to perform this on the (R) d/t IV access and OT and pt went over HEP and ROM Exercises. OT educated and trained pt in yellow band strengthening which he tolerated well. OT then placed pts (L) UE on rolled towel for passive stretch into extension which pt tolerated well and OT will continue to work on pts gross and fine motor control of his (B) UE. ASSESSMENT/PLAN: Plan per evaluation and POC. OT will work on edema and functional ROM with strengthening as symptoms allow. TREATMENT CODES/TIME: [id number], 35 minutes Radha Arechiga OTR/L [facility] [place], [place]
[2023-07-11 15:30] VITALS: BP 137/68; PULSE 67; RESP 17; TEMP 36.2; O2SAT 98
--- NOTE | 2023-07-11 16:11 | PGE_ITS ---
Date of Service Date of service: 07/11/23 Time of Service: 16:11 Assessment and Plan Assessment and plan (1) Sepsis: Status: Acute Assessment and plan: -stable and responding to antibiotics; now on high dose Rocephin 2 gm IV q12h -had been on meropenem but urine culture and blood culture grew Klebsiella which was resistant to ampicillin but otherwise was sensitive to all antibiotics tested. -Repeat blood culture taken 07/07 show no growth -IV antibiotics discontinued, has since been transitioned to cefpodoxime -f/u P.T. consult to work on his strength and ambulatory status Qualifiers: Sepsis type: sepsis due to unspecified organism Sepsis acute organ dy sfunction status: with acute organ dysfunction Severe sepsis acute organ dysfunction type: acute renal failure Acute renal failure type: unspecified Severe sepsis shock status: with septic shock Qualified Code(s): A41.9 - Sepsis, unspecified organism; R65.21 - Severe sepsis with septic shock; N17.9 - Acute kidney failure, unspecified (2) Renal abscess, left: Status: Suspected Assessment and plan: -initial CT reading was questionable abscess versus mass. -No mass seen on renal U.S. -previous physician discussion yesterday w/ Dr. De La O, [place] [facility] [place] CT scans and did not find any abscess. He did indicate that this showed pyelonephritis and receommended follow up study in 2 weeks but repeat sooner if clincal deterioration. -Previous physician had asked Urology, appreciate recs; voiding trial after discharge, but prior to completion of oral antibiotic regimen -Patient has lower urinary tract obstructive symptoms from BPH. He is on Flomax and added Proscar to his regimen. (3) Pyelonephritis: Status: Acute Assessment and plan: -as above (4) Acute UTI (urinary tract infection): Status: Acute Assessment and plan: -As above (5) Urinary retention: Status: Chronic Assessment and plan: -secondary to BPH, already on flomax which has been restarted. -Proscar added. continue rendon catheter for now. -see above (6) Community acquired pneumonia: Status: Acute Assessment and plan: -now on ce -add DuoNeb, IS and acapella. check sputum cultures if able to obtain, monitor oxygen needs and daily inflammatory markers. -encourage mobilization. -will consult w/ P.T. to work on his deconditioning. Qualifiers: Laterality: right Lung location: upper lobe of lung Qualified Code(s): J18.9 - Pneumonia, unspecified organism (7) Elevated troponin I level: Status: Acute Assessment and plan: -Type II demand ischemia secondary to hypotension and sepsis. -Normal LV and RV function per echocardiogram. (8) MANJU (acute kidney injury): Status: Acute Assessment and plan: -Secondary to hypertension sepsis with slight increase in creatinine yesterday d/t contrast studies but now improving. -Good urine output, over 2 liters per day. continue to monitor U.O. and daily labs. (9) Hypomagnesemia: Status: Acute Assessment and plan: -Replete and monitor (10) Peripheral arterial occlusive disease: Assessment and plan: -s/p bilateral iliofemoral stents, remains on Plavix chronically. aspirin was added per ED discussion w/ [facility] cardiology. -kept the aspirin but feel that his troponin leak was d/t hypotension and sepsis. -However he may have occult CAD given his hx of PAD. -have asked him about any heart cath during his workup in [place] in 1999 when his pacer was placed and he does not recall any coronary catheterization. (11) Anemia: Status: Chronic Assessment and plan: -prior remote hx of iron deficiency anemia but patient denies any recent hx of anemia. -he denies any melena or hematochezia. -havel put him on PPI and obtain anemia workup AM 06/27. -Stool was negative for occult blood per rectal exam on admission exam (12) DNR no code (do not resuscitate): Status: Chronic Assessment and plan: -DNR/DNI per previous physicians discussion w/ the patient (13) DVT prophylaxis: Status: Acute Assessment and plan: -enoxaparin SC Subjective Subjective Interval history since last seen: Patient continues to work with physical therapy as encouraged by his improvement, continues to have some difficulty excepting that he may not be safe to discharge home. Exam Narrative Exam Narrative: Well appearing older gentleman sitting up in the chair in no acute distress, AOx4, heart RRR, lungs CTAB, abdomen soft, non-tender, non-distended and without CVA tenderness, continued weakness in bilateral upper and lower extremities that are worse in the lower extremities Objective Last Vital Signs Temp 97.2 F L 07/11/23 15:30 Pulse 67 07/11/23 15:30 Resp 17 07/11/23 15:30 BP 137/68 07/11/23 15:30 Pulse Ox 98 07/11/23 15:30 PAWSS Have you Been Recently Intoxicated or Drunk Within the Last 30 days?: No Have you Ever Experienced Previous Episodes of Alcohol Withdrawal?: No Have you ever Experienced Withdrawal Seizures?: No Have you ever Experienced Delirium Tremens(DT)s?: No Have you ever undergone Alcohol Rehabilitation Treatment (i.e, inpt ot outpatient treatment programs)?: No Have you ever Experienced Blackouts?: No Have you ever Combined Alcohol with other Downers within the last 90 days?: No Have you ever Combined Alcohol with any other Substance of Abuse during the last 90 days?: No Positive Blood Alcohol level on Presentation? [PCS.BAL]: No Evidence of Increased Autonomic Activity (i.e. HR>120, tremor, sweating, agitation, nausea)?: No Result: 0 Time Spent with Patient Time Spent with Patient: >50 minutes Time was spent: preparing to see the patient(eg.review tests), obtaining and/or reviewing separately otained hiistory, referring, communicating with other health critical care specialist, indepentently interpreting results, counseling the pa tient and care coordination
--- NOTE | 2023-07-11 16:54 | PDOC.CMPRO ---
Date of service: 07/11/23 Time of Service: 16:54 Care Management Progress Note Progress Note Text Progress Note Text: S/O: Per PT, Fab showed drastic improvement in progressing mobility with PT today, no bed offers have been recieved for SNF, anticipate he may be able to return home with new VNA. CM continues to follow. A: Rafael is an 83 year old man admitted on 07/04/23 with sepsis P:Anticipate Fab will either be discharged home when medically cleared, or go to a jail facility for short term rehab. If he returns home he will likely benefit from additional services at home. He will follow up with community providers and plan of care and transport with family. CM will continue to support Fab and his discharge planning needs.
--- NOTE | 2023-07-11 17:11 | PTTR_ITS ---
Date of service: 07/11/23 Time of Service: 11:30 PT Notes Visit Reasons: Sepsis Inpatient Physical Therapy Treatment Note [facility] Date: 07/11/23 PRECAUTIONS: Fall, standard, activity as tolerated. SUBJECTIVE: Patient reports frustration with his performance yesterday afternoon. Is hoping to do better today. OBJECTIVE: Sitting up in recliner, agreeable to therapy. Lopez bag in place. ? PAIN: none reported. VITALS: monitored by nursing staff. ? BED MOBILITY/TRANSFERS? Rolling L/R: not assessed Supine-sit: not assessed ? Sit-supine: not assessed ? Sit-stand: CGA to min assist <5 lbs ? Stand-sit: CGA to min assist with verbal cues to reach back, control descent. ? Bed-Chair: CGA? Chair-bed: CGA Gait Training ([id number]): Direct one-on-one instruction and skilled instruction in: [] employing an assistive device [] modified weight-bearing status [x] movement sequencing [] turning and movement with proper form [x] Provided verbal cues for equipment management and technique [x] Provided instruction in gait pattern [] Patient education regarding pacing and breathing techniques to maximize activity tolerance? GAIT? Assistive Device: FWW? Weight bearing: full Assist: CGA ? Distance:? 10 feet, seated rest, 4 feet, seated rest, 4 feet. AFTERNOON: 13 feet, no rest. ? Deviation: Kyphotic posture, extremely weak hip and knee flexors and extensors. Step to gait pattern with left leg leading. Bilateral foot drop corrected with bilateral AFOs. AFTERNOON: no AFOs. ? Therapeutic Exercises ([id number]): Direct one-on-one instruction in therapeutic exercises to develop strength, endurance, range of motion and flexibility. ? Exercises: * Seated marching x10 * LAQ's x10 * sit to stands x5 Provided skilled instruction in proper exercise performance Provided skilled manual cues to facilitate proper muscle recruitment and/or form. Neuromuscular Re-education ([id number]): Activities that facilitate re-education of movement balance, posture, coordination, and proprioception or kinesthetic sense, requiring skilled tactile and verbal cues ? Exercises/techniques: * Quick stretch applied to bilateral TA's to facilitate dorsiflexion * Tapping applied to bilateral TA's to facilitate dorsiflexion. * Under direct supervision from DPT Coby De Luna, applied NMES to each TA for 5 minutes, with 2 second ramp time, 10 seconds on 10 seconds off, 30 PPM pulse. Instructed patient to dorsiflex as NMES caused dorsiflexion. ASSESSMENT:? Patient tolerates therapy well, reports in the afternoon that he was not so wiped out that he needed to spend the rest of the day asleep like he did after yesterday's morning session. PLAN: Continue global strengthening per plan of care until patient is medically cleared for discharge. TREATMENT CODE/TIME: 37 minutes beginning at 11:30 and 47 minutes beginning at 12:52 for a total of 84 minutes today.
[2023-07-11 20:06] VITALS: BP 117/62; PULSE 60; RESP 16; TEMP 35.3; O2SAT 95
[2023-07-11] MEDS: Lidocaine Patch Removal 1 EACH TP (20:10)
[2023-07-11] MEDS: Enoxaparin 40 MG/0.4 ML SYR SC (20:32)
[2023-07-11] MEDS: rOPINIRole 1 MG TAB PO (20:33)
[2023-07-11] MEDS: diazePAM 5 MG TAB PO (20:33)
[2023-07-11] MEDS: Tamsulosin 0.4 MG CAPCR PO (20:33)
[2023-07-11] MEDS: oxyCODONE 5 MG TAB PO (21:10)
[2023-07-11] MEDS: Bimatoprost 0.01% 2.5 ML BTL 1 ML OS (23:14)
[2023-07-11 23:48] VITALS: BP 109/62; PULSE 67; RESP 16; TEMP 36.3; O2SAT 98
[2023-07-12 03:30] VITALS: BP 109/64; PULSE 61; RESP 18; TEMP 36.1; O2SAT 94
[2023-07-12 07:42] VITALS: BP 120/67; PULSE 61; RESP 18; TEMP 36.8; O2SAT 93
[2023-07-12] MEDS: Cholecalciferol (Vitamin D3) 400 UNIT TAB PO (08:05)
[2023-07-12] MEDS: Famotidine 20 MG TAB PO (08:05)
[2023-07-12] MEDS: Clopidogrel 75 MG TAB PO (08:05)
[2023-07-12] MEDS: Finasteride 5 MG TAB PO (08:05)
[2023-07-12] MEDS: Ascorbic Acid 500 MG TAB 1000 MG PO (08:05)
[2023-07-12] MEDS: Acetaminophen 500 MG TAB 1000 MG PO ×2 (08:06→14:29)
[2023-07-12] MEDS: Baclofen 10 MG TAB PO ×2 (08:06→14:29)
[2023-07-12] MEDS: Cefpodoxime 200 MG TAB PO (08:06)
[2023-07-12] MEDS: Rosuvastatin 10 MG TAB PO (08:06)
[2023-07-12] MEDS: Lidocaine 5% Patch 1 PATCH TD (08:07)
[2023-07-12] MEDS: Allopurinol 100 MG TAB 50 MG PO (08:07)
--- NOTE | 2023-07-12 09:31 | PDOC.CMPRO ---
Date of service: 07/12/23 Time of Service: 09:31 Care Management Progress Note Progress Note Text Progress Note Text: S/O: Fab Hall is an 83 year old man admitted on 07/04/23 with sepsis P:Anticipate Fab will either be discharged home when medically cleared, or go to a detention facility for short term rehab. If he returns home he will likely benefit from additional services at home. He will follow up with community providers and plan of care and transport with family. CM will continue to support Fab and his discharge planning needs.
[2023-07-12 11:48] VITALS: BP 129/77; PULSE 61; RESP 20; TEMP 36.2; O2SAT 98
--- NOTE | 2023-07-12 12:21 | W.PM.DS.N ---
Date of service: 07/12/23 Time of Service: 14:57 DS: Diagnosis Discharge Diagnosis (1) Sepsis: Status: Acute Asessment and Plan: - Initially presented with sepsis thought to be secondary to left sided renal abscess though [facility] urology did not believe this was the case -Patient was treated with Merrem that was subsequently transitioned to cefpodoxime completed course during hospitalization (2) Renal abscess, left: Status: Suspected Asessment and Plan: - As noted above (3) Pyelonephritis: Status: Acute (4) Acute UTI (urinary tract infection): Status: Acute (5) Urinary retention: Status: Chronic Asessment and Plan: - Lopez was placed on admission -We will follow-up with urology for voiding trial (6) Community acquired pneumonia: Status: Acute Asessment and Plan: - Also had concurrent community-acquired pneumonia that was treated during hospitalization (7) Elevated troponin I level: Status: Acute Asessment and Plan: - Likely secondary to sepsis, for type II NSTEMI (8) MANJU (acute kidney injury): Status: Acute (9) Hypomagnesemia: Status: Acute (10) Peripheral arterial occlusive disease: (11) Anemia: Status: Chronic (12) DNR no code (do not resuscitate): Status: Chronic (13) DVT prophylaxis: Status: Acute Discharge Plan Disposition Patient Disposition: Home W/Home Health Services Condition: Good Discharge Details Reason For Visit: Sepsis Admit Date/Time: 07/04/23 15:57 Admit Provider: Wil Gutierrez Attending Provider: Wil Gutierrez Primary Care Provider: Justin Leal Hospital Course Hospital Course: Patient initially presented with evidence of UTI and suspicious for renal abscess. Urinary retention requiring Lopez placement hypertension noted requiring IV fluids and vasopressors qualifying for septic shock. However, he was treated with IV antibiotics, was weaned off of vasopressors was determined to not have renal abscess. However, Lopez catheter remains in place. After improvement of patient's acute issues, he continue to work with physical therapy as he has significant difficult time with ambulation after recent spine surgery. However, he did not improve enough with physical therapy to be discharged home with home health. Home Meds and New Rx's Prescriptions: New finasteride 5 mg Tablet 5 mg PO DAILY Qty: 60 0RF Continued allopurinol 100 mg tablet 200 mg PO DAILY Qty: 180 3RF oxycodone 5 mg tablet 5 mg PO DAILY PRN rosuvastatin [Crestor] 10 mg tablet 10 mg PO DAILY ropinirole 0.5 mg tablet 1 mg PO QHS diazepam 5 mg tablet 2.5 - 5 mg PO QHS PRN (Reason: sleep/spasm) Qty: 30 0RF tamsulosin [Flomax] 0.4 mg capsule 0.4 mg PO DAILY Qty: 90 1RF clopidogrel 75 MG tablet 75 mg PO DAILY cholecalciferol (vitamin D3) 1,000 unit tablet 400 unit PO DAILY baclofen 10 mg tablet 10 mg PO TID Qty: 90 0RF celecoxib [Celebrex] 200 MG capsule 200 mg PO DAILY ascorbic acid (vitamin C) 1,000 MG tablet 1,000 mg PO DAILY lidocaine 4 % Adhesive Patch,Medicated 1 patch TOPICAL DAILY Lumigan 0.01 % drops 2 drp ophthalmic (eye) DAILY Patient Comments: pt reports he takes this at bedtime in both eyes Discharge Instructions Instructions: Sepsis (DC) Stand Alone Forms: Nursing Discharge Form Referrals: Bobby Lennon MD [ [facility] STAFF PHYSICIAN] - 07/25/23 8:00 am (You will also have an appointment at 3:00pm. Both of these appointments will be with Mercy Moreno. It is very important that you come to these appointments at the time they are scheduled. ) Justin Leal MD [Primary Care Provider] - 07/25/23 1:00 pm Activity:: Activity as Tolerated Equipment/Supplies:: No Equipment Needed Diet:: As Tolerated Discharge Orders Discharge Orders: Discharge Order (Routine); Ordered 07/12/23 Ordered By: Sandeep Morales DS: Summary Time Spent with Patient providing and/or coordinating discharge services: Less than 30 minutes Status at Discharge Functional status at discharge: uses cane/walker Overall status at discharge: patient is not back to baseline Mental Status: mental status grossly normal Speech and Movement: speech and movement normal Mood: congruent mood Affect: normal affect Exam Narrative Exam Narrative: Well appearing older gentleman sitting up in the chair in no acute distress, AOx4, heart RRR, lungs CTAB, abdomen soft, non-tender, non-distended and without CVA tenderness, continued weakness in bilateral upper and lower extremities that are worse in the lower extremities Psych Mental Status: mental status grossly normal Speech and Movement: speech and movement normal Mood: congruent mood Affect: normal affect DS: Data Vitals/I&O Vitals and I&O: Vital Signs Temperature 97.2 F L 07/12/23 11:48 Temperature Source Tympanic 07/12/23 11:48 Pulse 61 07/12/23 11:48 Pulse Rhythm Regular 07/12/23 08:08 Pulse 74 07/07/23 15:30 Respiratory Rate 20 07/12/23 11:48 Respiratory Effort Normal, Non-Labored 07/12/23 08:08 Respiratory Depth Normal 07/12/23 08:08 Respiratory Pattern Normal 07/12/23 08:08 Blood Pressure 129/77 07/12/23 11:48 Blood Pressure Mean 81 07/07/23 13:07 Blood Pressure Position Right Lateral 07/06/23 04:36 Pulse Oximetry 98 07/12/23 11:48 Respiratory End-tidal CO2 22 07/04/23 16:06 Oxygen Delivery Method Room Air 07/12/23 11:48 Oxygen Flow Rate 0 07/12/23 11:48 Pain Level 5 07/12/23 07:42 Comment 86 ra after pain med 07/04/23 20:15 Comment manual bp 07/04/23 21:40 Intake & Output 07/11/23 07/12/23 07/12/23 17:59 05:59 17:59 Intake Total 440 / 440 Output Total 850 / 850 1550 / 2400 Balance -850 / -850 -1110 / -1960 Weight 154 lb Intake: Oral 440 / 440 Output: Urine 850 / 850 1550 / 2400 Other: Urine Color Yellow Yellow Urine Appearance Clear Clear Clear Stool Occult Blood Negative Stool Size Large Large Small Stool Characteristics Formed Soft Soft Brown Brown Data Completed and Pending Labs on day of discharge: Preliminary micro results at discharge 07/05/23 00:10 Urine Culture - Preliminary Urine - Reflex from Ua Gram Negative Tone Gram Positive Vivienne,Mixed PFSH All Active Problems (Updated 07/06/23 @ 10:06 by Wil Gutierrez MD) Pyelonephritis (Acute) Community acquired pneumonia (Acute) Urinary retention (Chronic) Elevated troponin I level (Acute) Acute low back pain (Acute) DVT prophylaxis (Acute) DNR no code (do not resuscitate) (Chronic) Sepsis (Acute) Hypomagnesemia (Acute) Anemia (Chronic) Acute non-ST elevation myocardial infarction (NSTEMI) (Acute) MANJU (acute kidney injury) (Acute) Acute UTI (urinary tract infection) (Acute) History of prostate cancer (Acute) Leg muscle spasm (Acute) Low blood pressure (Acute) Weakness (Chronic) Diverticulosis (Chronic) Wrist pain, left (Acute) ? carpal tunnel ? 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 doesn't remember which leg) Family History Mother , 91 Stroke Father , 71 Heart disease Stroke Brother Heart disease Maternal Grandfather , 71 No problems noted. Paternal Grandfather , 36 No problems noted. Maternal Grandmother , 91 No problems noted. Paternal Grandmother , 68 Diabetes Heart disease Son No problems noted. Son , 39 Heart disease Daughter No problems noted. Social History Smoking/Tobacco Use Status: Former Tobacco Use tobacco type: cigarettes Quit Date: 08/26/05 Tobacco: How many years used: 40 Quit status: quit date established Second Hand Exposure: Yes Smoking risk assessment performed?: Yes Alcohol Intake: current Alcohol Intake frequency: a few times a week Alcohol type: beer, wine and hard liquor Substance use type: does not use Caregiver/Support person: No Household members: spouse Housing: house Communication Needs: Hard of Hearing Do you need help understanding health information?: Rarely Pets and animals: Yes Pets and animals: cat(s), dog(s) and horse(s) Sexually active: No Do you think of yourself as: straight/heterosexual Current gender identity: male What is your relationship status?: How often do you talk on the phone with friends or family?: three or more times per week How often do you get together with friends or relatives?: decline to answer How often do you attend hinduism or catholic services?: decline to answer Do you belong to any clubs or organized social groups?: no Panel score (0-1 are the most socially isolated patients): 2 What type of physical activity do you participate in: bicycling Duration: < 15 minutes/day Frequency: 5-6 times per week Rufina/Yazdanism: none Special rufina needs: No Seatbelt use: always Drive intox or ride w/intox driver's license examiner: No Do you feel safe at home: Yes Do you feel safe in your relationship?: Yes Time Spent with Patient Time Spent with Patient: <45 minutes Time was spent: preparing to see the patient(eg.review tests), obtaining and/or reviewing separately otained hiistory, referring, communicating with other health career services coordinator, indepentently interpreting results, counseling the patient and care coordination
--- NOTE | 2023-07-12 13:49 | PTTR_ITS ---
Date of service: 07/12/23 Time of Service: 10:44 PT Notes Visit Reasons: Sepsis Inpatient Physical Therapy Treatment Note [facility] Date: 07/12/23 PRECAUTIONS: Fall, standard, activity as tolerated. SUBJECTIVE: Patient reports feeling nervous about going home, very concerned that he won't be able to do as much as he wants to do. also present, states that patient has gone home previously in worse shape than this. Appears optimistic. OBJECTIVE: Sitting up in chair, agreeable to therapy.? PAIN: none reported VITALS: monitored by nursing staff? BED MOBILITY/TRANSFERS? Rolling L/R: indepenedent Supine-sit: min assist ? Sit-supine: min assist? Sit-stand: CGA ? Stand-sit: SBA? Bed-Chair: CGA with infrequent verbal cues ? Chair-bed: CGA with infrequent verbal cues Gait Training (05187i7): Direct one-on-one instruction and skilled instruction in: [x] employing an assistive device [] modified weight-bearing status [x] movement sequencing [x] turning and movement with proper form [x] Provided verbal cues for equipment management and technique [x] Provided instruction in gait pattern [x] Patient education regarding pacing and breathing techniques to maximize activity tolerance? GAIT? Assistive Device: fww? Weight bearing: full Assist: CGA, close wheelchair follow ? Distance:? 16 feet without rest, seated rest, 8 feet ? Deviation: kyphotic posture with stoop that worsens as patient fatigues. Step to gait pattern with left leg leading. Bilateral drop foot requiring bilateral AFO's. ? Therapeutic Exercises (12581h4): Direct one-on-one instruction in therapeutic exercises to develop strength, endurance, range of motion and flexibility. ? Exercises: HEP created as shown below, reviewed with patient and . Access Code: [email or web address] URL: [email or web address] Date: 07/12/2023 Prepared by: Milagro Phan Exercises - Supine Bridge - 1 x daily - 7 x weekly - 3 sets - 10 reps. Instructed patient's on how to support bilateral knees and feet so that patient is able to bridge. - Wall Push Up with Plus - 1 x daily - 7 x weekly - 3 sets - 10 reps. Recommended skipping this one until patient has better standing tolerance. Reviewed building standing tolerance. Patient and verbalize understanding and agreement. - Seated Thoracic Self Mobilization - 1 x daily - 7 x weekly - 3 sets - 10 reps. Provided skilled instruction in proper exercise performance Provided skilled manual cues to facilitate proper muscle recruitment and/or form. Neuromuscular Re-education (94078a9): Activities that facilitate re-education of movement balance, posture, coordination, and proprioception or kinesthetic sense, requiring skilled tactile and verbal cues ? Exercises/techniques: * Seated leaning as far as possible and self-righting * seated reaching far outside base of support and self-righting * seated balance vs perturbations (instructed patient's on various techniques to apply perturbations.) ASSESSMENT:? Patient tolerates therapy well, after therapy reports feeling more confident about going home. PLAN: Discharge to home, follow up with HHPT or outpatient PT. TREATMENT CODE/TIME: 43 minutes beginning at 10:01
--- NOTE | 2023-07-12 14:04 | PDOC.HHF2F ---
Home Health Referral Home Health Orders Clinical synopsis of why skilled professionals are needed: Patient had a recent spinal surgery and subsequently required hospitalization for 8 days with septic shock secondary to UTI which sent back his physical therapy progress Medical diagnosis necessitation home health referral: Recovering from recent spinal surgery requiring home physical therapy Registered Nurse: Check all that apply Instruct on new or changed medication(s)/assess compliance: Ordered Instruct on, and maintenance of, urinary device: Ordered Physical Therapist: Check all that apply Increase strength & endurance for safe mobility at home: Ordered To design/establish home maintenance program: Ordered Fall reduction therapy program for patient with history of frequent falls: Ordered Home safety evaluation and teaching/gait training including stair management (if applicable): Ordered Occupational Therapist: Evaluate and treat for patient unable to perform ADL/IADL/self-care: Ordered Upper extremity strengthening, range and motion: Ordered Home Bound Status Requires the aid of supportive device (check all that apply): Wheelchair and Walker Describe why leaving home would require a considerable and taxing effort: Requires frequent rest periods Encounter Date and Reason: I certify that a FTF encounter for this patient was performed on July 12, 2023 and that such encounter was related to the primary reason the patient requires home health services. The encounter was conducted in the following manner: By me as the certifying physician, CHIEF COMPRESSOR STATION ENGINEER, PA or By an inpatient physician, CHIEF COMPRESSOR STATION ENGINEER or PA during an inpatient stay who communicated findings to me, Certification And Authentication I certify that I composed the above information based on my clinical judgment relating to this patient's medical condition and, if applicable, clinical findings communicated to me by the NPP or inpatient physician who performed the FTF encounter. Name of Provider that will be monitoring home health services: Justin Leal
--- NOTE | 2023-07-12 18:06 | PDOC.CMDIS ---
Date of service: 07/12/23 Time of Service: 18:06 LACE Index Scoring Tool Questions: Length of Stay (in days): 7 - 13 Was the patient admitted via the E.D.?: Yes Comorbidities: Previous M.I. and Any Tumor E.D. Visits: 2 Answers: Total Score: 13 Risk of Readmission: High Risk Care Management Discharge Plan Reason for Hospitalization: sepsis Discharge Plan: Fab will be discharged home with no new services. He has been attending outpatient PT and would like to continue. He will follow up with community providers and plan of care and transport vis RCT coordinate by CM. Patient/Family Education Needs: review of discharge instructions, limitations, follow up plan, discuss Ask Me Three Services Needed at Discharge: Physical Therapy
[2023-07-12 19:18] LABS: Mycoplasma Pneumoniae PCR Negative (Negative); Specimen source sputum
== END 2023-07-12 16:08 | disposition home health service (06) | DRG 871 ==
LOC: ER 17:00 → ICU 17:36 → MS 07-07 19:22
PROVIDERS: Family Medicine; Registered Nurse Emergency; Admitting Provider Internal Medicine; Emergency Provider Emergency Medicine Emergency Medical Services; PCP Family Medicine; Visit Provider Internal Medicine
DX: A41.9 Sepsis, unspecified organism (principal); I21.A1 Myocardial infarction type 2; J18.9 Pneumonia, unspecified organism; R65.21 Severe sepsis with septic shock; N17.9 Acute kidney failure, unspecified; N10 Acute pyelonephritis; Z16.11 Resistance to penicillins; E83.42 Hypomagnesemia; Z66 Do not resuscitate; R33.9 Retention of urine, unspecified; I25.2 Old myocardial infarction; R53.1 Weakness; I25.10 Atherosclerotic heart disease of native coronary artery without angina pectoris; F10.90 Alcohol use, unspecified, uncomplicated; E78.5 Hyperlipidemia, unspecified; I10 Essential (primary) hypertension; I45.10 Unspecified right bundle-branch block; Z98.1 Arthrodesis status; Z87.891 Personal history of nicotine dependence; Z95.828 Presence of other vascular implants and grafts; I77.9 Disorder of arteries and arterioles, unspecified; R29.6 Repeated falls; B96.1 Klebsiella pneumoniae [K. pneumoniae] as the cause of diseases classified elsewhere; N40.1 Benign prostatic hyperplasia with lower urinary tract symptoms
CPT/HCPCS: 00123; 36415; 71275; 76770; 80053; 82805; 84145; 86850; 86900; 86901; 87040; 87077; 87449; 87637; 92610; 93005; 93306; 96361; 96365; 96367; 97110; 97112; 97116; 97140; 97162; 97166; 97530; 99221; 99291; J1650; 70450; 72125; 72126; 72129; 72132; 74174; 80202; 81003; 81015; 82607; 82728; 82746; 83540; 83550; 83605; 83735; 84443; 84466; 84484; 85025; 85610; 85730; 86140; 87070; 87086; 87186; 87205; 87581; 87899; 93010; 94640; 94667; 94668; 94760; 99233; 99239; J1170; J3475; J3490; J7620

== ENCOUNTER → 2023-07-25 08:06 | Outpatient (BNVA) | payer MEDICARE, SELFPAY | PROVIDERS: PCP Family Medicine; Referring Provider Family Medicine; Visit Provider Nurse Practitioner Gerontology | DX: R33.8 Other retention of urine (principal); Z46.6 Encounter for fitting and adjustment of urinary device | CPT/HCPCS: 51702; 51798; 99212 ==

== ENCOUNTER 2023-08-13 20:25 | Outpatient (REF) | payer MEDICARE, SELFPAY ==
[2023-08-14 13:10] LABS: Bilirubin Negative (Negative); Blood Small (Negative); Clarity Cloudy (Clear); Glucose Negative (Negative); Ketones Trace mg/dL (Negative); Leukocyte Esterase Moderate (Negative); Nitrite Positive (Negative); Urobilinogen 0.2 mg/dL (Up to 0.2); pH 5.5 (5-8)
[2023-08-14 13:16] LABS: Bacteria Many HPF (Negative); C & S Indicated? C&S Done As Ordered; Casts Negative LPF (Negative); Crystals Negative HPF (Negative); Epithelial Cells Negative HPF (Negative); Mucus Negative (Negative); Other Cells Negative (Negative); RBC >50 HPF (0-2); WBC >50 HPF (0-5)
== END 2023-08-13 20:26 | disposition home or self-care (01) ==
LOC: LBN 20:25
PROVIDERS: PCP Family Medicine; Visit Provider Nurse Practitioner Gerontology
DX: R35.0 Frequency of micturition (principal); R53.1 Weakness
CPT/HCPCS: 87077; 81003; 81015; 87086; 87186

== ENCOUNTER → 2023-08-15 13:57 | Outpatient (BNVA) | payer MEDICARE, SELFPAY | PROVIDERS: PCP Family Medicine; Visit Provider Nurse Practitioner Gerontology | DX: R33.8 Other retention of urine (principal); R35.0 Frequency of micturition; R53.1 Weakness | CPT/HCPCS: 51702; 51798; 99214 ==

== ENCOUNTER → 2023-09-19 14:02 | Outpatient (BNVA) | payer MEDICARE, SELFPAY | PROVIDERS: PCP Family Medicine; Referring Provider Family Medicine; Visit Provider Nurse Practitioner Gerontology | DX: R33.8 Other retention of urine (principal) | CPT/HCPCS: 51798; 99213 ==

== ENCOUNTER → 2023-09-25 07:58 | Outpatient (BNVA) | payer MEDICARE, SELFPAY | PROVIDERS: PCP Family Medicine; Referring Provider Family Medicine; Visit Provider Nurse Practitioner Gerontology | DX: R33.8 Other retention of urine (principal); Z85.46 Personal history of malignant neoplasm of prostate; R35.0 Frequency of micturition | CPT/HCPCS: 51798; 99213 ==

== ENCOUNTER → 2023-10-22 07:54 | Outpatient (BNVA) | payer MEDICARE, SELFPAY | PROVIDERS: PCP Family Medicine; Referring Provider Family Medicine; Visit Provider Nurse Practitioner Gerontology | DX: R33.8 Other retention of urine (principal); R35.0 Frequency of micturition | CPT/HCPCS: 51798; 99213 ==

== ENCOUNTER → 2024-02-12 10:41 | Outpatient (BNVA) | payer MEDICARE, SELFPAY | PROVIDERS: PCP Family Medicine; Referring Provider Family Medicine; Visit Provider Nurse Practitioner Gerontology | DX: R33.8 Other retention of urine (principal); Z85.46 Personal history of malignant neoplasm of prostate | CPT/HCPCS: 51798; 99213 ==

== ENCOUNTER → 2024-09-09 10:58 | Outpatient (BNVA) | payer MEDICARE, SELFPAY | PROVIDERS: PCP Family Medicine; Visit Provider Nurse Practitioner Gerontology | DX: R33.8 Other retention of urine (principal); R35.1 Nocturia; Z85.46 Personal history of malignant neoplasm of prostate | CPT/HCPCS: 51798; 99213 ==

== ENCOUNTER → 2025-03-10 11:17 | Outpatient (BNVA) | payer MEDICARE, SELFPAY | PROVIDERS: PCP Family Medicine; Referring Provider Family Medicine; Visit Provider Nurse Practitioner Gerontology | DX: R33.9 Retention of urine, unspecified (principal); Z85.46 Personal history of malignant neoplasm of prostate; R39.9 Unspecified symptoms and signs involving the genitourinary system | CPT/HCPCS: 99213; 51798 ==

== ENCOUNTER 2025-08-24 09:56 | Emergency (ER) | payer MEDICARE, SELFPAY ==
[2025-08-24] VITALS (33 sets, daily range): BP systolic 102–188; BP diastolic 58–95; PULSE 60–114; RESP 14–31; TEMP 36.7; O2SAT 89–96
--- NOTE | 2025-08-24 10:08 | ED.GENADUL_ITS ---
Discharge Plan Disposition Patient Disposition: Transfer-Acute Inpatient Care Specific Acute Inpt Facility[facility] Condition: Poor Discharge Details Clinical Impression: Ischemic foot Primary Care Provider: Justin Leal ED Provider: Charlee Palacios [place] Meds and New Rx's Prescriptions: No Action diazepam 5 mg tablet 5 mg PO BID PRN (Reason: sleep/spasm) Qty: 60 0RF oxycodone 5 mg tablet 5 mg PO DAILY MDD 1 PRN (Reason: pain) Qty: 10 0RF clopidogrel 75 MG tablet 75 mg PO DAILY baclofen 10 mg tablet 10 mg PO TID Qty: 90 0RF allopurinol 100 mg tablet 200 mg PO DAILY Qty: 180 3RF duloxetine 30 mg capsule,delayed release(DR/EC) 30 mg PO DAILY Qty: 30 2RF tamsulosin [Flomax] 0.4 mg capsule 0.8 mg PO HS Qty: 180 3RF finasteride 5 mg tablet 5 mg PO DAILY Qty: 90 2RF gabapentin 100 mg capsule 100 - 300 mg PO QHS Qty: 90 5RF lidocaine 4 % Adhesive Patch,Medicated 1 patch TOPICAL DAILY Lumigan 0.01 % drops 2 drp ophthalmic (eye) DAILY Patient Comments: pt reports he takes this at bedtime in both eyes Discharge Data Discharge Date/Time-TO BE ENTERED AT DEPARTURE: 08/24/25 15:55 HPI General Date/Time Provider Initiated Documentation: 08/24/25 10:00 . Limitations to Documentation: no limitations . Information obtained by: patient, family, RN notes reviewed and old records reviewed . History of Present Illness 85 year old M presents to the emergency department with the chief complaint of right foot wound, discoloration, pain, inability to bear weight, described as severe, and is localized to the right and lower extremity. Patient reports no radiation. Patient started experiencing this week(s) and it has been constant (worsening, discoloration noted yesterday). Immobilization improves symptom(s), Movement worsens symptoms . Patient notes loss of appetite and weakness; denies chest pain, cough, fever/chills, headaches, nausea/vomiting and shortness of breath. Patient did receive the following treatments prior to arrival, none Related Data Home Medications ?Medication ?Instructions ?Recorded ?Confirmed clopidogrel 75 mg tablet 75 mg PO DAILY 04/19/1507/28 0 lidocaine 4 % topical patch 1 patch topical DAILY 05/1508/24/25 baclofen 10 mg tablet 10 mg PO TID #90 tabs 08/24/25 bimatoprost 0.01 % eye drops 2 drp ophthalmic (eye) DA LINDSEY 07/05/23 08/24/25 (Lumigan) glaucoma diazepam 5 mg tablet 5 mg PO BID PRN sleep/spasm #60 09/17/23 08/24/25 tabs allopurinol 100 mg tablet 200 mg (2 x 100 mg) PO DAILY #180 03/22/25 08/24/25 tab-caps duloxetine 30 mg capsule,delayed 30 mg PO DAILY #30 ca ps 03/22/25 08/24/25 release tamsulosin 0.4 mg capsule (Flomax) 0.8 mg (2 x 0.4 mg) PO HS #180 caps 05/03/25 08/24/25 finasteride 5 mg tablet 5 mg PO DAILY #90 tabs 06/0208/24/25 gabapentin 100 mg capsule 100 - 300 mg (1 - 3 x 100 mg ) PO 08/11/25 08/24/25 QHS restless legs #90 caps oxycodone 5 mg tablet 5 mg PO DAILY PRN pain #10 t abs 08/24/25 08/24/25 Previous Rx's ?Medication ?Instructions ?Recorded baclofen 10 mg tablet 10 mg PO TID #90 tabs diazepam 5 mg tablet 5 mg PO BID PRN sleep/spasm #60 09/17/23 tabs allopurinol 100 mg tablet 200 mg (2 x 100 mg) PO DAILY #180 03/22/25 tab-caps duloxetine 30 mg capsule,delayed 30 mg PO DAILY #30 ca ps 03/22/25 release tamsulosin 0.4 mg capsule (Flomax) 0.8 mg (2 x 0.4 mg) PO HS #180 caps 05/03/25 finasteride 5 mg tablet 5 mg PO DAILY #90 tabs 06/02 gabapentin 100 mg capsule 100 - 300 mg (1 - 3 x 100 mg ) PO 08/11/25 QHS restless legs #90 caps oxycodone 5 mg tablet 5 mg PO DAILY PRN pain #10 t abs 08/24/25 Allergies Allergy/AdvReac Type Severity Reaction Status Date / Time No Known Allergies Allergy Verified 08/24/25 10:20 General CLIFFORD: 2 Review of Systems Constitutional Constitutional: Reports as per HPI, Denies chills, Denies fever(s) and Denies headache(s) Eyes Eyes: Denies change in vision ENT Ears, Nose, Mouth, and Throat: Denies dizziness and Denies headache(s) Cardiovascular Cardiovascular: Reports as per HPI and Denies dyspnea Respiratory Respiratory: Reports as per HPI, Denies chest congestion, Denies cough, Denies pain on inspiration and Denies dyspnea Gastrointestinal Gastrointestinal: Reports as per HPI, Denies abdominal pain, Denies diarrhea, Denies nausea and Denies vomiting Genitourinary Genitourinary: Denies system reviewed and no additional complaints, except as documented (denies change in urinary habits) Musculoskeletal Musculoskeletal: Reports as per HPI and Denies back pain Integumentary/Breasts Skin/Breast: Reports as per HPI Neurologic Neurologic: Reports as per HPI, Denies dizziness and Denies headache(s) Exam Const General: cooperative, comfortable, no acute distress, well developed and ill appearing chronically Nutritional Appearance: average body habitus and well nourished Orientation: alert, awake and oriented x3 Resp Effort & Inspection: normal respiratory effort, able to speak in complete sentences and no respiratory distress Auscultation: clear to auscultation bilaterally, no rales, no rhonchi and no wheezes Cardio Rate: regular rate Rhythm: regular rhythm Heart Sounds: S1 normal and S2 normal Skin General skin exam: erythema (distal to right ankle), pallor (third and fourth toe right foot) and other (cyanosis right great toe) Wounds: wounds noted (open wound right medial foot) Neuro General: patient alert, patient awake and patient oriented x3 Cognition: normal cognition Speech: speech normal Motor: tone not normal throughout (diffuse weakness but still able to move some, contractions BUE) Sensory Exam: lower extremity (bilateral decreased/absent sensation) and other Extrem General: no pedal edema, no calf tenderness, abnormal gait and cyanosis Medical Decision Making Patient is a pleasant 85 year old male, with PMH of prostate cancer, CAD, cervic al myelopathy and associated neuropathy and extremity weakness, restless leg syndrome, HTN, HLD, PAD, presenting with chief complaint of discoloration to his right foot and inability to bear weight. Patient's companied by his . reports that he has had a wound on the medial side of the right foot where she reports a bunion fell off 2 to 3 months ago. However, states that the wound was quite small although deep and did not have any evidence of complications. A few days ago however, they noted the fluid began to change color and starting yesterday, patient was not able to bear weight on the foot. Patient does use a wheelchair for mobility but is typically able to stand to get into the wheelchair. He states that he is no longer able to do so secondary to pain in this foot. He is overall fairly insensate in the affected extremity. He denies any fevers or chills. He denies any systemic feelings of illness. No chest pain or shortness of breath. No recent change in medications. Patient was seen by his primary care this morning who advised that he come here for further evaluation with concern for vascular or infectious etiology. On exam, patient appears nontoxic. He is resting comfortably no acute distress, hemodynamically stable. Exam of the right lower extremity reveals to be red circumferentially from the ankle down. However, the great toe including the base of the toe moving up on the foot is cyanotic and cold. The rest the foot is cool to the touch with no palpable pulses. Delayed capillary refill. Contralateral has normal skin color and capillary refill. I was not able to palpate the pulses on the left foot but was able to get in with Doppler. Attempt was made to Doppler the affected foot on unable to do so. Open wound is triangular in shape but about 1 cm across with no drainage. Surrounding tissue is white and appears more macerated than infected. No sensation in the right foot with palpation, light touch, cold. Reviewed prior imaging, patient did have a CTA in 2022 showing patient had a known occluded left iliac artery stent. History and exam is most consistent with vascular etiology and ischemic toe with decreased blood flow to the foot. Will consult with vascular surgery at [facility] [place]. Getting line at this time but will also consider CTA based on the finding of his labs and a new request from vascular. I did not able to get a dopplerable pulse in the affected extremity, ABIs not going to be possible at this point. Also considered infection in the setting of vascular defect so will also cover for infected ulcer and obtain cultures and lactate. Will keep the patient n.p.o. in the event that he needs to have vascular surgery or amputation. I did discuss this as a potential for the patient and he is interested in moving forward with that should it be warranted. He and his are concerned about long-term mobility for him as he is very weak in his upper extremities stemming from cervical spine issues and not being able to bear weight on this foot could completely impede his mobility. Consider beginning patient on heparin for ischemic appearing foot but as I am unclear if the patient will need to have intervention, we will hold off until I consulted with vascular surgery. labs reviewed. Slight white count of 11.02. Hemoglobin 12.3 but this is baseline for the patient. No lactic acidosis. Coags obtained. CMP without significant abnormality, creatinine 1.03 will move forward with CTA. Imaging pushed to [facility] [place]. [place] reviewed by radiologist: Severe atherosclerotic disease of the aorta and branch vessels. There is multifocal calcification involving both distal common femoral in as well as superficial femoral and popliteal arteries causing multifocal severe stenosis. The vessels are patent to the level of the midfoot on the left. Distal to this level the vessel caliber is too small to evaluate. On the right, vessels are patent to the level of the ankle. The dorsalis pedis is not seen. The peroneal posterior tibial arteries are visible. Evaluation is limited by motion. There is right lower leg and foot edema.. Dr. Smith [facility] vascular surgery. He was able to review the imaging. No signals in his foot indicates that he should go to their hospital. [facility] to ED so he is able to get an angio completed. Dr. Smith is the accepting physician. HE recommends starting him on heparin drip. Patient will be in ED to ED transfer via EMS, heparin is running. Patient and his agree to this. He has received p.o. Dilaudid for his chronic pain. He also received 1 mg of Ativan during the CT to help with his restless legs as this was impeding the ability to get a good image. Patient received piperacillin/tazobactam, fluids and heparin. Dictation completed using [employer] dictation software. Please excuse any errors or plant associate anomalies that may remain. Patient treansferred in stable condition via EMS to [facility] [place] for care of vascular surgery. PFSH All Active Problems (Updated 08/24/25 @ 14:26 by NING Davis) Ischemic foot (Acute) Cellulitis of foot, right (Acute) Palliative care patient (Acute) Advanced care planning/counseling discussion (Acute) Situational depression (Acute) Chronic pain syndrome (Chronic) Bilateral knee pain (Acute) Cervical spine pain (Acute) Urinary retention (Chronic) DNR no code (do not resuscitate) (Chronic) Anemia (Chronic) History of prostate cancer (Acute) Leg muscle spasm (Acute) Weakness (Chronic) Diverticulosis (Chronic) Wrist pain, left (Acute) ? carpal tunnel ? 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 doesn't remember which leg) H/O spinal fusion multiple spinal surgeries including lumbar, and cervical spine, last one at [facility] [place] March 2023 Hx of spinal surgery Family History Mother , 91 Stroke Father , 71 Heart disease Stroke Brother Heart disease Maternal Grandfather , 71 No problems noted. Paternal Grandfather , 36 No problems noted. Maternal Grandmother , 91 No problems noted. Paternal Grandmother , 68 Diabetes Heart disease Son No problems noted. Son , 39 Heart disease Daughter No problems noted. Social History Smoking/Tobacco Use Status: Former Tobacco Use tobacco type: cigarettes Quit Date: 08/26/05 Tobacco: How many years used: 40 Quit status: quit date established Second Hand Exposure: Yes Smoking risk assessment performed?: Yes Alcohol Intake: current Alcohol Intake frequency: a few times a week Alcohol type: beer, wine and hard liquor Drug use: Never Substance use type: does not use and former substance user Date of last use: Former marijuana use Counseling given: No Caregiver/Support person: No Household members: spouse Housing: house Communication Needs: Hard of Hearing Do you need help understanding health information?: Rarely Pets and animals: Yes Pets and animals: cat(s), dog(s) and horse(s) Sexually active: No Do you think of yourself as: straight/heterosexual Current gender identity: male What is your relationship status?: How often do you talk on the phone with friends or family?: three or more times per week How often do you get together with friends or relatives?: decline to answer How often do you attend latter-day or jew services?: decline to answer Do you belong to any clubs or organized social groups?: no Panel score (0-1 are the most socially isolated patients): 2 What type of physical activity do you participate in: bicycling Duration: < 15 minutes/day Frequency: 5-6 times per week Rufina/Latter Day: none Special rufina needs: No Seatbelt use: always Drive intox or ride w/intox non cdl driver: No Do you feel safe at home: Yes Do you feel safe in your relationship?: Yes
--- NOTE | 2025-08-24 11:15 | DI.CT_ITS ---
Exam(s) CT ABD AORTA CTA W RUNOFF EXAM: CT ABD AORTA CTA W RUNOFF CLINICAL HISTORY: right foot cold, discolored, no pulse. TECHNIQUE: Imaging Protocol: Axial CT angiography was performed with multi- slice acquisition and multi-planar and/or 3D reconstructions. CONTRAST MATERIAL: Intravenous: Omnipaque 350 Contrast volume:150 ml Contrast route:IV - Oral: No COMPARISON: CT CT THORAX ABD/PEL CTA from 07/04/2023 FINDINGS: The exam is limited by patient motion. Vascular Structures: Heart: Normal size. Coronary artery calcifications. Pacemaker leads. Mitral annular calcification. Abdomen: Celiac [place]: Some calcific plaque. No significant stenosis. SMA: Some calcific plaque. No significant stenosis. Renal Arteries: No significant stenosis. There is a single renal artery perfusing each kidney. CECILIA: Patent. Aorta: Severe atherosclerotic plaque. No aneurysm. No dissection. Pelvis: Iliac Arteries: Left iliac artery stent. Common Femoral Arteries: No significant stenosis. Lower extremities: Right: Common Femoral: Multifocal calcific plaque causing severe stenosis Superficial Femoral: Multifocal heavy calcification causing severe multifocal stenosis. Distal stents. There is significant motion limiting evaluation. Popliteal: there is significant motion limiting evaluation. Knee Trifurcation: Multifocal calcifications.. Posterior Tibial: Multifocal calcification. Peroneal: Multifocal calcification. Dorsalis Pedis: Diminished caliber below the level of the talus. There is significant motion at the level of the foot. Left: Common Femoral: Multifocal calcific plaque causing severe stenosis Superficial Femoral: Multifocal heavy calcification causing severe multifocal stenosis. Popliteal: Heavily calcified multifocal moderate to severe stenosis Knee Trifurcation: Multifocal calcifications.. Posterior Tibial: Multifocal calcification. Peroneal: Multifocal calcification. Dorsalis pedis: Patent. Soft Tissues: Lungs: No acute findings. Calcified pleural plaque at the right diaphragm. Liver: Normal density. No measurable mass. Gallbladder and biliary tract: No radiodense calculus or dilation. Pancreas: Normal density, no abnormal calcifications or inflammatory process. Spleen: Normal. Kidneys: Normal size, contour and axis. No radiodense stones or obstructive uropathy. Evaluation limited by motion. Adrenal glands: No masses seen. Bladder: Diffuse wall thickening and trabeculation. Bowel: No obstruction or bowel wall thickening. Severe sigmoid diverticulosis. Peritoneal cavity: No ascites, collection or mesenteric inflammatory response. Bones: Unremarkable for age. Reproductive: Surgical clips in the prostate bed. Soft tissues: Edema in the right lower leg through the right foot, greater anteriorly. IMPRESSION: Severe atherosclerotic disease of the aorta and branch vessels. There is multifocal calcification involving both distal common femoral in as well as superficial femoral and popliteal arteries causing multifocal severe stenosis. The vessels are patent to the level of the midfoot on the left. Distal to this level the vessel caliber is too small to evaluate. On the right, vessels are patent to the level of the ankle. The dorsalis pedis is not seen. The peroneal posterior tibial arteries are visible. Evaluation is limited by motion. There is right lower leg and foot edema.. RADIATION DOSE DELIVERED: 715.56mGy.cm Total DLP DATA REPOSITORY: All CT scans at this facility are submitted to the National Radiology Data Registry (NRDR) Dose Index Registry (DIR) with the [employer] (ACR). RADIATION OPTIMIZATION: All CT scans at this facility use at least one of these dose optimization techniques: automated exposure control; mA and/or kV adjustment per patient size (includes targeted exams where dose is matched to clinical indication); or iterative reconstruction.
[2025-08-24 11:18] LABS: Abs Immature Grans 0.04 10^3/uL (0.0-0.06); HCT 37.4 % (40.0-50.0); HGB 12.3 g/dL (13.5-17.5); Immature Grans % 0.4 %; MCH 31.3 pg (27.0-33.0); MCHC 32.9 % (32.0-36.0); MCV 95 fL (80-95); MPV 9.9 fL (8.0-11.0); Platelet Count 255 10^3/uL (130-400); RBC 3.93 10^6/uL (4.36-5.78); RDW 12.2 % (11.8-14.1); RDW-SD 43.1 fL; WBC 11.02 10^3/uL (4.4-10.8)
[2025-08-24 11:36] LABS: ALT 21 U/L (10-49); AST 28 U/L (<34); Albumin 4.3 g/dL (3.2-5.0); Alkaline Phosphatase 82 U/L (46-116); Anion Gap 11 mmol/L (3-11); BUN 16 mg/dL (9-23); Bilirubin, Total 0.6 mg/dL (0.2-1.2); CO2 25.3 mmol/L (20.0-31.0); Calcium 9.4 mg/dL (8.3-10.6); Chloride 97 mmol/L (98-107); Glucose 90 mg/dL (74-106); Magnesium 1.7 mg/dL (1.6-2.6); Potassium 3.6 mmol/L (3.5-5.1); Sodium 133 mmol/L (136-145); Total Protein 8.2 g/dL (5.7-8.2)
[2025-08-24 11:48] LABS: INR 1.1 (0.9-1.1); PTT Activated 34.0 sec (20.6-30.2); Prothrombin Time 10.4 sec (9.1-11.1)
[2025-08-24] MEDS: LORazepam 2 MG/ML VIAL 1 MG IVP (12:06)
[2025-08-24] MEDS: Normal Saline 1,000 ML 250 ML IV (12:07)
[2025-08-24] MEDS: Omnipaque 350 MG/ML 50 ML BTL 150 ML IJ (12:26)
[2025-08-24] MEDS: Normal Saline - Diluent 50 ML VIAL IJ ×2 (12:27→12:29)
[2025-08-24] MEDS: Normal Saline Flush 10 ML SYR IVP (12:28)
[2025-08-24] MEDS: PIPERACILLIN/TAZO 3.375 GM in Normal Saline 50 ML IVPB (12:59)
[2025-08-24] MEDS: HYDROmorphone 2 MG TAB PO (14:28)
[2025-08-24] MEDS: Heparin in 0.45% NaCl 25,000 UNIT/250 ML BAG 14 UNIT IVINF (14:32)
== END 2025-08-24 15:55 | disposition short-term general hospital (02) ==
PROVIDERS: Emergency Provider Physician Assistant; PCP Family Medicine
DX: I99.8 Other disorder of circulatory system (principal)
CPT/HCPCS: 99285 ×2; 36415; 96375; 75635; 80053; 87040; 96365; 96367; 83605; 83735; 85025; 85610; 85730; J1644; J2060; J2543; Q9967